=== PATIENT | female | born 1945 | race African-American/Black ===

== ENCOUNTER 2016-10-05 00:02 | Emergency (ER) | payer OTHER ==
--- NOTE | 2016-10-05 00:35 | PDOC ---
History of Present Illness - General Stated Complaint: PERSISTENT COUGH Time Seen by Provider: 10/05/16 00:35 - History of Present Illness Initial Comments: 10/05/16 02:37 Patient is a 70-year-old female with past medical history of seizure disorder, constipation, severe MR, glaucoma, dysphasia who presents to the emergency department today with a complaint of persistent cough. She is sent by her shelter for evaluation. Due to the patient's MR unable to obtain review of systems. According to her paperwork sent from the shelter patient with persistent cough for 2 weeks, no fevers or chills. Past History - Travel Traveled outside of the country in the last 30 days: No Close contact w/someone who was outside of country & ill: No - Past Medical History Allergies/Adverse Reactions: Allergies Allergy/AdvReac Type Severity Reaction Status Date / Time No Known Allergies Allergy Verified 02/14/13 21:49 Home Medications: Ambulatory Orders Carbamazepine [Tegretol] 400 mg PO DAILY 03/14/11 Docusate Sodium [Colace] 300 mg PO HS 03/14/11 Bimatoprost [Lumigan] 7.5 ml OP HS #0 drops 02/17/13 Calcium Carb/Magnesium Oxid/D3 [Calcium Magnesium + D Tablet] 1 each PO BID #0 tablet 02/17/13 Carbamazepine Xr [Tegretol XR -] 200 mg PO HS #0 tab.er.12h 02/17/13 Docusate Sodium [Colace -] 300 mg PO HS #60 capsule 02/17/13 Psyllium Husk (with Sugar) [Metamucil Packet] 1 each PO DAILY #0 packet Anemia: No Asthma: No Cancer: No Cardiac Disorders: No CVA: No COPD: No CHF: No Dementia: No Diabetes: No GI Disorders: No Disorders: No HTN: Yes Hypercholesterolemia: No Liver Disease: No Suicide Attempt (Hx): No Seizures: Yes Thyroid Disease: No - Psycho/Social/Smoking Cessation Hx Anxiety: No Suicidal Ideation: No Smoking Status: No Smoking History: Unknown if ever smoked Have you smoked in the past 12 months: No Number of Cigarettes Smoked Daily: 0 Hx Alcohol Use: No Drug/Substance Use Hx: No Substance Use Type: None Hx Substance Use Treatment: No Review of Systems - Review of Systems Able to Perform ROS?: No (severe mr) Comments:: 10/05/16 02:40 Unable to obtain d/t pt. severe MR. *Physical Exam - Physical Exam Comments: 10/05/16 06:41 GENERAL: Well developed, well nourished. Awake and alert, baseline. No acute distress, breathing easily. HEENT: Normocephalic, atraumatic. PERRLA, EOMI. No conjunctival pallor. Sclera are non- icteric. Moist mucous membranes. Oropharynx is clear. NECK: Supple. Full ROM. No JVD. Carotid pulses 2+ and symmetric, without bruits. No thyromegaly. No lymphadenopathy. CARDIOVASCULAR: Regular rate and rhythm. No murmurs, rubs, or gallops. Distal pulses are 2+ and symmetric. PULMONARY: No evidence of respiratory distress. Lungs clear to auscultation bilaterally. No wheezing, rales or rhonchi. ABDOMINAL: Soft. Non-tender. Non-distended. No rebound or guarding. No organomegaly. Normoactive bowel sounds. MUSCULOSKELETAL Normal range of motion at all joints. No bony deformities or tenderness. No CVA tenderness. EXTREMITIES: No cyanosis. No clubbing. No edema. No calf tenderness. SKIN: Warm and dry. Normal capillary refill. No rashes. No jaundice. NEUROLOGICAL: Alert, awake, appropriate. Cranial nerves 2-12 intact. No deficits to light touch and temperature in face, upper extremities and lower extremities. No motor deficits in the in face, upper extremities and lower extremities. Normoreflexic in the upper and lower extremities. Normal speech. Toes are down- going bilaterally. Gait is normal without ataxia. PSYCHIATRIC: Cooperative. Good eye contact. Appropriate mood and affect. ED Treatment Course - LABORATORY CBC & Chemistry Diagram: 10/05/16 02:27 10/05/16 02:27 Medical Decision Making - Medical Decision Making 10/05/16 02:41 Patient is a 70-year-old female with past medical history of seizure disorder, constipation, severe MR, glaucoma, dysphasia who presents to the emergency department today with a complaint of persistent cough. Patient appears stable in the emergency department, breathing easily. No cough heard at this time. We' ll order basic lab work and chest x-ray. Reevaluate. 10/05/16 03:58 CBC and CMP are within normal limits. Chest x-ray shows no evidence of infiltrate, possible increased interstitial markings. No acute cardiopulmonary changes. X-rays unchanged from previous x-ray in 2013. Patient appears stable at this time smiling making eye contacts. Has occasional dry cough. Most likely a postnasal drip. We'll discharge home at this time. Patient may use Mucinex as needed for the cough. Discharge instructions were outlined for the shelter. *DC/Admit/Observation/Transfer Diagnosis at time of Disposition: Cough - Discharge Dispostion Admit: No - Referrals Referrals: Nelly Tyson MD [Primary Care Provider] - - Patient Instructions Printed Discharge Instructions: DI for Cough -- Adult Additional Instructions: Ms. Diaz work up was negative today. She did not have a fever or a high WBC count on exam. Her chest x-ray does not show evidence of pneumonia. She may have Mucinex as needed for cough. Follow up with Dr. Tyson within the week. Return to the ED if she has fever, shortness of breath, worsening cough, or any changes in her symptoms.
[2016-10-05 01:38] VITALS: TEMP 98.1; BMI 26.4
[2016-10-05 02:39] LABS: BASOPHIL 0.3 % (0-2.0); EOSINOPHIL 6.3 % (0-4.5); MCH 25.5 pg (25.7-33.7); MCHC 31.7 g/dl (32.0-36.0); MEAN CELL VOLUME 80.5 fl (80-96); MEAN PLT VOLUME 9.9 fl (7.5-11.1); NEUTROPHILS 64.1 % (42.8-82.8); PLATELET COUNT 211 K/MM3 (134-434); WHITE BLOOD COUNT 9.5 K/mm3 (4.0-10.0)
[2016-10-05 03:13] LABS: ALBUMIN 3.4 g/dl (3.4-5.0); ALK PHOS 178 U/L (45-117); ANION GAP 9 (8-16); BILIRUBIN,TOTAL 0.2 mg/dL (0.2-1.0); CALCIUM 8.6 mg/dL (8.5-10.1); CO2 28 mmol/L (21-32); CREATININE 0.7 mg/dL (0.55-1.02); GLUCOSE,RANDOM 106 mg/dL (74-106); SGOT/AST 10 U/L (15-37); SGPT/ALT 20 U/L (12-78); TOT PROT 7.6 g/dl (6.4-8.2)
[2016-10-05 05:04] VITALS: BP 101/45; PULSE 65
== END 2016-10-05 05:02 ==
LOC: JER 00:02
DX: R05 Cough (principal); I10 Essential (primary) hypertension; G40.909 Epilepsy, unspecified, not intractable, without status epilepticus; K59.00 Constipation, unspecified; F72 Severe intellectual disabilities; R47.02 Dysphasia; H40.9 Unspecified glaucoma
CPT/HCPCS: 36415; 71010-TC; 80053; 85025; 99281-25

== ENCOUNTER 2017-07-26 00:18 | Observation (INO) | payer OTHER ==
--- NOTE | 2017-07-26 00:36 | PDOC ---
History of Present Illness - General Chief Complaint: Pain, Acute Stated Complaint: ABDOMINAL PAIN Time Seen by Provider: 07/26/17 00:35 History Source: [facility] - History of Present Illness Travel History: No Initial Comments: 07/26/17 01:54 71-year-old female with history of mental retardation, multiple comorbidities referred from [facility] for abdominal pain and several large bowel movements after administration of an enema. Patient is a phasic is unable to cooperate with detailed H&P. Information was provided by the skilled nursing records as well as paramedics transporting the patient to the ER. REVIEW OF SYSTEMS Unable to obtain EXAMINATION CONSTITUTIONAL: Awake and alert, nonverbal, in no apparent distress HEAD: Normocephalic; atraumatic EYES: Conjunctivae were pink ENMT: External appears normal; poor dentition NECK: Supple; non-tender; no cervical lymphadenopathy CARD: Normal S1, S2; no murmurs, rubs, or gallops RESP: Normal chest excursion with respiration; breath sounds clear and equal bilaterally; no wheezes, rhonchi, or rales ABD: Soft, distended; non-tender; + small ventral hernia is noted (easily reducible), no palpable organomegaly, bowel sounds are normal in all 4 quadrants [place]: Fecal impaction EXT: No obvious deformity SKIN: Warm, dry, no petechia NEURO: Patient is awake and alert, mumbles incoherently, does not follow commands Past History - Past Medical History Allergies/Adverse Reactions: Allergies Allergy/AdvReac Type Severity Reaction Status Date / Time No Known Allergies Allergy Verified 07/26/17 00:34 Home Medications: Ambulatory Orders Carbamazepine [Tegretol] 400 mg PO BID 03/14/11 Docusate Sodium [Colace] 300 mg PO HS 03/14/11 Aa/Hydrolyzed Collagen, Whey [Lps 15-30 Liquid] 30 ml PO BID 07/26/17 Acetaminophen [Tylenol] 650 mg PO QID PRN 07/26/17 Ascorbic Acid [Vitamin C -] 500 mg PO DAILY 07/26/17 Bisacodyl Suppository [Dulcolax Suppository -] 10 mg RC ASDIR 07/26/17 Calcium Carbonate/Vitamin D3 [Oyster Shell 500-Vit D3 200 Tb] 1 each PO BID Cholecalciferol (Vitamin D3) [Vitamin D3] 1,000 unit PO DAILY 07/26/17 Latanoprost 0.005% Eye Drops [Xalatan 0.005% Eye Drops -] 1 drop OU HS 07/26/17 Multivit-Min/Iron/Folic Acid/K [Multi-Day Plus Minerals Tablet] 1 each PO DAILY 07/26/17 Psyllium Husk/Aspartame [Metamucil] 3.4 gm PO DAILY 07/26/17 Sennosides [Senna] 2 tab PO DAILY 07/26/17 Zonisamide [Zonegran -] 100 mg PO HS 07/26/17 Anemia: No Asthma: No Cancer: No Cardiac Disorders: No CVA: No COPD: No CHF: No Dementia: No Diabetes: No GI Disorders: No Disorders: No HTN: Yes Hypercholesterolemia: No Liver Disease: No Seizures: Yes Thyroid Disease: No - Suicide/Smoking/Psychosocial Hx Smoking Status: No Smoking History: Unknown if ever smoked Have you smoked in the past 12 months: No Number of Cigarettes Smoked Daily: 0 Hx Alcohol Use: No Drug/Substance Use Hx: No Substance Use Type: None Hx Substance Use Treatment: No ED Treatment Course - LABORATORY CBC & Chemistry Diagram: 07/26/17 00:53 07/26/17 00:53 Medical Decision Making - Medical Decision Making 07/26/17 01:56 Patient is 71-year-old female with mental retardation, multiple comorbidities who presents to the ER with abdominal pain due to a severe fecal impaction and dilation of the rectum with rectal wall thickening. CT of abdomen and pelvis reveals no other intra-abdominal pathology. Patient will require admission for GI evaluation rectal tube placement for possible disimpaction. *DC/Admit/Observation/Transfer Diagnosis at time of Disposition: Fecal impaction Abdominal pain Qualifiers: Abdominal location: unspecified location Qualified Code(s): R10.9 - Unspecified abdominal pain - Discharge Dispostion Condition at time of disposition: Fair Decision to Admit order: Yes - Referrals Referrals: Aniket Guzman MD [Primary Care Provider] - - Patient Instructions - Post Discharge Activity
[2017-07-26 01:03] LABS: BASO % 0.3 % (0-2.0); EOS % 1.5 % (0-4.5); HEMATOCRIT 36.2 % (32.4-45.2); HEMOGLOBIN 11.5 GM/dL (10.7-15.3); LYMPH % 10.7 % (8-40); MCH 26.1 pg (25.7-33.7); MCHC 31.8 g/dl (32.0-36.0); MEAN CELL VOLUME 82.1 fl (80-96); MEAN PLT VOLUME 9.4 fl (7.5-11.1); MONO % 4.5 % (3.8-10.2); PLATELET COUNT 258 K/MM3 (134-434); RBC 4.42 M/mm3 (3.60-5.2); WHITE BLOOD COUNT 15.8 K/mm3 (4.0-10.0)
[2017-07-26 01:15] LABS: INR 1.15 (0.82-1.09)
[2017-07-26 01:29] LABS: ALBUMIN 3.6 g/dl (3.4-5.0); ALK PHOS 165 U/L (45-117); ANION GAP 10 (8-16); BILIRUBIN,TOTAL 0.2 mg/dL (0.2-1.0); BLOOD UREA NITROGEN 18 mg/dL (7-18); CALCIUM 8.6 mg/dL (8.5-10.1); CHLORIDE 107 mmol/L (98-107); CO2 25 mmol/L (21-32); CREATININE 1.1 mg/dL (0.55-1.02); GLUCOSE,RANDOM 139 mg/dL (74-106); POTASSIUM 4.5 mmol/L (3.5-5.1); SGOT/AST 12 U/L (15-37); SGPT/ALT 24 U/L (12-78); SODIUM 142 mmol/L (136-145); TOT PROT 8.1 g/dl (6.4-8.2)
[2017-07-26] MEDS ORDERED: DEXTROSE 5%-0.45% SALINE 1,000 ML IV SCH (02:00)
--- NOTE | 2017-07-26 02:23 | HP ---
CHIEF COMPLAINT: Abdominal Pain, Constipation PCP: Dr. Guzman HISTORY OF PRESENT ILLNESS: This is a 71 y/o woman from [facility] with a PMH: Mental Retardation, Constipation, Nephrotic Syndrome, Anemia, OA, Pneumonia, Influenza A, UTI. Who presents to the ED with constipation and abdominal pain. Patient has profound MR and is unable to provide HPI. Per ED records patient had abdominal pain and several large bowel movements after administration of an enema. ER course was notable for: (1) CTAP- Fecal Impaction (2) WBC 15.8 (3) Glucose 139 (4) Lactic Acid 2.2 Recent Travel: None PAST MEDICAL HISTORY: Mental Retardation Seizure Disorder Nephrotic Syndrome Constipation UTI Anemia Pneumonia Influenza A PAST SURGICAL HISTORY: Unable to Obtain Social History: Smoking: Never Alcohol: None Drugs: None Resides in SNF Family History: Unable to Obtain Allergies No Known Allergies Allergy (Verified 07/26/17 00:34) HOME MEDICATIONS: Home Medications Medication Instructions Recorded Carbamazepine [Tegretol] 400 mg PO BID 03/14/11 Docusate Sodium [Colace] 300 mg PO HS 03/14/11 Aa/Hydrolyzed Collagen, Whey [Lps 30 ml PO BID 07/26/17 15-30 Liquid] Acetaminophen [Tylenol] 650 mg PO QID PRN 07/26/17 Ascorbic Acid [Vitamin C -] 500 mg PO DAILY 07/26/17 Bisacodyl Suppository [Dulcolax 10 mg RC ASDIR 07/26/17 Suppository -] Calcium Carbonate/Vitamin D3 1 each PO BID 07/26/17 [Oyster Shell 500-Vit D3 200 Tb] Cholecalciferol (Vitamin D3) 1,000 unit PO DAILY 07/26/17 [Vitamin D3] Latanoprost 0.005% Eye Drops 1 drop OU HS 07/26/17 [Xalatan 0.005% Eye Drops -] Multivit-Min/Iron/Folic Acid/K 1 each PO DAILY 07/26/17 [Multi-Day Plus Minerals Tablet] Psyllium Husk/Aspartame [Metamucil] 3.4 gm PO DAILY 07/26/17 Sennosides [Senna] 2 tab PO DAILY 07/26/17 Zonisamide [Zonegran -] 100 mg PO HS 07/26/17 REVIEW OF SYSTEMS Mental Retardation- Unable to Obtain CONSTITUTIONAL: Absent: fever, chills, diaphoresis, generalized weakness, malaise, loss of appetite, weight change HEENT: Absent: rhinorrhea, nasal congestion, throat pain, throat swelling, difficulty swallowing, mouth swelling, ear pain, eye pain, visual changes CARDIOVASCULAR: Absent: chest pain, syncope, palpitations, irregular heart rate, lightheadedness , peripheral edema RESPIRATORY: Absent: cough, shortness of breath, dyspnea with exertion, orthopnea, wheezing, stridor, hemoptysis GASTROINTESTINAL: Absent: abdominal pain, abdominal distension, nausea, vomiting, diarrhea, constipation, melena, hematochezia GENITOURINARY: Absent: dysuria, frequency, urgency, hesitancy, hematuria, flank pain, genital pain MUSCULOSKELETAL: Absent: myalgia, arthralgia, joint swelling, back pain, neck pain SKIN: Absent: rash, itching, pallor HEMATOLOGIC/IMMUNOLOGIC: Absent: easy bleeding, easy bruising, lymphadenopathy, frequent infections ENDOCRINE: Absent: unexplained weight gain, unexplained weight loss, heat intolerance, cold intolerance NEUROLOGIC: Absent: headache, focal weakness or paresthesias, dizziness, unsteady gait, seizure, mental status changes, bladder or bowel incontinence PSYCHIATRIC: Absent: anxiety, depression, suicidal or homicidal ideation, hallucinations. PHYSICAL EXAMINATION Vital Signs - 24 hr 07/26/17 00:40 Temperature 98.9 F Pulse Rate 86 Respiratory 18 Rate Blood Pressure 148/95 O2 Sat by Pulse 100 Oximetry (%) GENERAL: Awake, alert- at baseline (profound MR), no acute distress HEAD: Normal with no signs of trauma. EYES: Pupils equal, round and reactive to light, sclera anicteric, conjunctiva clear. No lid lag. EARS, NOSE, THROAT: Ears normal, nares patent, oropharynx clear without exudates. Moist mucous membranes. NECK: Normal range of motion, supple without lymphadenopathy, JVD, or masses. LUNGS: Breath sounds equal, clear to auscultation bilaterally. No wheezes, and no crackles. No accessory muscle use. HEART: Regular rate and rhythm, normal S1 and S2 without murmur, rub or gallop. ABDOMEN: Firm, nontender, distended, hypoactive bowel sounds. No guarding, no rebound, no masses. No hepatomegaly or splenomegaly. MUSCULOSKELETAL: Normal range of motion at all joints. No bony deformities or tenderness. No CVA tenderness. UPPER EXTREMITIES: 2+ pulses, warm, well-perfused. No cyanosis. No clubbing. No peripheral edema. Contracted LOWER EXTREMITIES: 2+ pulses, warm, well-perfused. No calf tenderness. No peripheral edema. NEUROLOGICAL: Cranial nerves II-XII intact. Non-verbal. Gait not observed. PSYCHIATRIC: Profound MR- unable to assess. SKIN: Warm, dry, normal turgor, no rashes or lesions noted, normal capillary refill. Laboratory Results - last 24 hr 07/26/17 07/26/17 07/26/17 00:53 00:53 00:53 WBC 15.8 H D RBC 4.42 Hgb 11.5 Hct 36.2 MCV 82.1 MCH 26.1 MCHC 31.8 L RDW 14.0 Plt Count 258 D MPV 9.4 Neutrophils % 83.0 H D Lymphocytes % 10.7 D Monocytes % 4.5 Eosinophils % 1.5 Basophils % 0.3 PT with INR 13.00 INR 1.15 H Sodium 142 Potassium 4.5 Chloride 107 Carbon Dioxide 25 Anion Gap 10 BUN 18 Creatinine 1.1 H Creat Clearance w eGFR 48.82 Random Glucose 139 H Lactic Acid Calcium 8.6 Total Bilirubin 0.2 AST 12 L ALT 24 Alkaline Phosphatase 165 H Total Protein 8.1 Albumin 3.6 07/26/17 00:53 WBC RBC Hgb Hct MCV MCH MCHC RDW Plt Count MPV Neutrophils % Lymphocytes % Monocytes % Eosinophils % Basophils % PT with INR INR Sodium Potassium Chloride Carbon Dioxide Anion Gap BUN Creatinine Creat Clearance w eGFR Random Glucose Lactic Acid 2.2 H* Calcium Total Bilirubin AST ALT Alkaline Phosphatase Total Protein Albumin ASSESSMENT/PLAN: This is a 71 y/o woman with a PMHx of: Mental Retardation, Seizure Disorder, Nephrotic Syndrome, Constipation, Anemia OA, Pnuemonia, Influenza A. Admitted for Severe Fecal Impaction, Abdominal Pain. FEN - D51/2NS@60cc/hr - Replete lytes prn - NPO Code Status: DNR, HCP Dispo: Requires inpatient Care Problem List - Problem (1) Fecal impaction Assessment/Plan: - Pt given enema at [facility]- reports pt having large BM, with abdominal pain - CTAP- Severe Fecal impaction, Dilatation of Rectum with Rectal Wall Thickening - Appreciate GI consult - Continue IVF - NPO - Monitor CBC, BMP - Monitor vitals Code(s): K56.41 - FECAL IMPACTION (2) Abdominal pain Assessment/Plan: - See above Code(s): R10.9 - UNSPECIFIED ABDOMINAL PAIN Qualifiers: Abdominal location: unspecified location Qualified Code(s): R10.9 - Unspecified abdominal pain (3) Mental retardation Assessment/Plan: - Fall Risk - Seizure Precautions Code(s): F79 - UNSPECIFIED INTELLECTUAL DISABILITIES (4) DVT prophylaxis Assessment/Plan: - OOB - SCDs - Heparin SQ Code(s): [id number] - Visit type - Emergency Visit Emergency Visit: Yes ED Registration Date: 07/26/17 Care time: The patient presented to the Emergency Department on the above date and was hospitalized for further evaluation of their emergent condition. - New Patient This patient is new to me today: Yes Date on this admission: 07/26/17 - Critical Care Critical Care patient: No Hospitalist Screening - Colonoscopy Questionnaire Colonoscopy Questionnaire: Colonoscopy Questionnaire - Patient: 50 - 75 years old and never had a screening colonoscopy: Unknown History of colon or rectal polyps, or CA: Unknown History of IBD, Crohn's disease or UC: Unknown History of abdominal radiation therapy as a child: Unknown - Relative: 1 with colon or rectal CA, or polyps at age 60 or younger: Unknown Colon or rectal CA diagnosed at age 45 or younger: Unknown Multiple relatives with colon or rectal CA: Unknown - Outcome: Screening Result: Negative Screen
[2017-07-26 03:20] LABS: URINE APPEARANCE CLEAR; URINE BILIRUBIN NEGATIVE (<2.0 mg/dL); URINE COLOR AMBER; URINE GLUCOSE (UA) NEGATIVE (NEGATIVE); URINE KETONE TRACE (NEGATIVE); URINE LEUK ESTERASE NEGATIVE (NEGATIVE); URINE NITRITE NEGATIVE (NEGATIVE); URINE PROTEIN NEGATIVE (NEGATIVE)
[2017-07-26 07:50] VITALS: BMI 22.7
[2017-07-26 07:58] LABS: CHLORIDE 106 mmol/L (98-107); SODIUM 141 mmol/L (136-145)
[2017-07-26 08:11] LABS: ANION GAP 10 (8-16); BLOOD UREA NITROGEN 17 mg/dL (7-18); CALCIUM 8.5 mg/dL (8.5-10.1); CO2 25 mmol/L (21-32); CREATININE 0.8 mg/dL (0.55-1.02); GLUCOSE,RANDOM 133 mg/dL (74-106)
[2017-07-26] MEDS ORDERED: PT OWN MED DRAWER 7, Y5N ONE ×3 (09:40→21:39)
[2017-07-26] MEDS: carBAMazepine 200 MG TABLET PO SCH ×2 (09:42→21:52)
[2017-07-26] MEDS: HEPARIN NA (PORCINE) 5,000 UNITS/ML 1ML VIAL SQ SCH ×2 (09:42→21:52)
[2017-07-26] MEDS ORDERED: POLYETHYLENE GLYCOL 3350 119 GM BTL PO SCH (10:00)
--- NOTE | 2017-07-26 10:22 | PN ---
Progress Note, Physician Chief Complaint: unable to obtain, pt aphasic. appears comfortable. slightly anxious. appears in no acute distress. - Current Medication List Current Medications: Active Medications Carbamazepine (Tegretol -) 400 mg PO BID [facility] Last Admin: 07/26/17 09:42 Dose: 400 mg Docusate Sodium (Colace -) 100 mg PO TID BRIAN Heparin Sodium (Porcine) (Heparin -) 5,000 unit SQ BID [facility] Last Admin: 07/26/17 09:42 Dose: 5,000 unit Dextrose/Sodium Chloride (D5-1/2ns -) 1,000 mls @ 60 mls/hr IV ASDIR BRIAN Latanoprost (Xalatan 0.005% Eye Drops -) 1 drop OU HS BRIAN Polyethylene Glycol (Miralax (For Daily Use) -) 17 gm PO BID BRIAN Senna (Senna -) 2 tab PO HS BRIAN Zonisamide (Zonegran -) 100 mg PO HS BRIAN - Objective Vital Signs: Vital Signs Temperature 98.8 F 07/26/17 02:26 Pulse Rate 84 07/26/17 02:26 Respiratory Rate 18 07/26/17 02:26 Blood Pressure 100/50 07/26/17 02:26 O2 Sat by Pulse Oximetry (%) 98 07/26/17 02:25 Constitutional: Yes: No Distress, Anxious Cardiovascular: Yes: Regular Rate and Rhythm Respiratory: Yes: WNL, Regular, CTA Bilaterally. No: Accessory Muscle Use, SOB , Wheezes Gastrointestinal: Yes: Soft, Abdomen, Obese, Hypoactive Bowel Sounds. No: Tenderness, Vomiting Genitourinary: Yes: Incontinence Extremities: Yes: Deformity (contracted) Edema: No Neurological: Yes: Aphasia Psychiatric: Yes: Alert Labs: CBC, BMP 07/26/17 00:53 07/26/17 06:15 INR, PTT INR 1.15 (0.82-1.09) H 07/26/17 00:53 Problem List - Problems (1) Fecal impaction Assessment/Plan: CT-abd w/ impaction colon having bms, abd soft, +bs fleet enema x 1 colace tid senna hs abd kub scan tomorrow am to assess impaction pureed diet ordered, monitor case discussed with GI Code(s): K56.41 - FECAL IMPACTION (2) Leukocytosis Assessment/Plan: possibly secondary to dehydration improved w/ ivf infectious etiology unlikely will monitor Code(s): D72.829 - ELEVATED WHITE BLOOD CELL COUNT, UNSPECIFIED (3) PABLO (acute kidney injury) Assessment/Plan: secondary to dehydration improved ivf monitor bmp Code(s): N17.9 - ACUTE KIDNEY FAILURE, UNSPECIFIED (4) Mental retardation Assessment/Plan: profound, aphasic puree diet dysphagia/fall precautions Code(s): F79 - UNSPECIFIED INTELLECTUAL DISABILITIES Assessment/Plan Dispo: Home once GI cleared
[2017-07-26 11:36] LABS: BASO % 0.5 % (0-2.0); EOS % 1.8 % (0-4.5); HEMATOCRIT 34.2 % (32.4-45.2); HEMOGLOBIN 10.8 GM/dL (10.7-15.3); MCH 25.9 pg (25.7-33.7); MCHC 31.5 g/dl (32.0-36.0); MEAN CELL VOLUME 82.3 fl (80-96); MEAN PLT VOLUME 9.8 fl (7.5-11.1); MONO % 6.6 % (3.8-10.2); NEUT % 76.1 % (42.8-82.8); PLATELET COUNT 229 K/MM3 (134-434); RBC 4.16 M/mm3 (3.60-5.2); RDW 14.2 % (11.6-15.6)
--- NOTE | 2017-07-26 11:57 | EKG ---
Test Reason : Blood Pressure : / mmHG Vent. Rate : 080 BPM Atrial Rate : 080 BPM P-R Int : 168 ms QRS Dur : 068 ms QT Int : 370 ms P-R-T Axes : 059 013 048 degrees QTc Int : 426 ms NORMAL SINUS RHYTHM MODERATE VOLTAGE CRITERIA FOR LVH, MAY BE NORMAL VARIANT NONSPECIFIC ST ABNORMALITY ABNORMAL ECG NO PREVIOUS ECGS AVAILABLE Confirmed by TOM LUBIN MD ([id number]) on 07/26/2017 11:57:06 AM Referred By: Confirmed By:TOM LUBIN MD
--- NOTE | 2017-07-26 12:49 | CON.GI ---
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) - Alcohol/Substance Use Hx Alcohol Use: No - Smoking History Smoking history: Unknown if ever smoked Have you smoked in the past 12 months: No Aproximately how many cigarettes per day: 0 Home Medications - Allergies Allergies/Adverse Reactions: Allergies Allergy/AdvReac Type Severity Reaction Status Date / Time No Known Allergies Allergy Verified 07/26/17 00:34 - Home Medications Home Medications: Ambulatory Orders Carbamazepine [Tegretol] 400 mg PO BID 03/14/11 Docusate Sodium [Colace] 300 mg PO HS 03/14/11 Aa/Hydrolyzed Collagen, Whey [Lps 15-30 Liquid] 30 ml PO BID 07/26/17 Acetaminophen [Tylenol] 650 mg PO QID PRN 07/26/17 Ascorbic Acid [Vitamin C -] 500 mg PO DAILY 07/26/17 Bisacodyl Suppository [Dulcolax Suppository -] 10 mg RC ASDIR 07/26/17 Calcium Carbonate/Vitamin D3 [Oyster Shell 500-Vit D3 200 Tb] 1 each PO BID Cholecalciferol (Vitamin D3) [Vitamin D3] 1,000 unit PO DAILY 07/26/17 Latanoprost 0.005% Eye Drops [Xalatan 0.005% Eye Drops -] 1 drop OU HS 07/26/17 Multivit-Min/Iron/Folic Acid/K [Multi-Day Plus Minerals Tablet] 1 each PO DAILY 07/26/17 Psyllium Husk/Aspartame [Metamucil] 3.4 gm PO DAILY 07/26/17 Sennosides [Senna] 2 tab PO DAILY 07/26/17 Zonisamide [Zonegran -] 100 mg PO HS 07/26/17 Family Disease History - Family Disease History Family History: Unable to Obtain Review of Systems Unable to obtain ROS, reason: severe mental retardatio Findings/Remarks: as per chart and H&P Physical Exam-GI Vital Signs: Vital Signs Temperature 99.2 F 07/26/17 08:15 Pulse Rate 76 07/26/17 10:25 Respiratory Rate 18 07/26/17 08:15 Blood Pressure 130/74 07/26/17 10:25 O2 Sat by Pulse Oximetry (%) 98 07/26/17 02:25 Constitutional: Yes: Calm Eyes: No: Sclera Icterus HENT: Yes: Drooling Cardiovascular: No: Bradycardia, Tachycardia Respiratory: Yes: Regular Gastrointestinal Inspection: No: Ascites, Distention ...Auscultate: Yes: Normoactive Bowel Sounds ...Palpate: Yes: Soft. No: Firm/Rigid, Guarding, Mass, Tenderness, Tenderness, Rebound ...Rectal Exam: Yes: Other ( large amount of brown, soft stool in diaper) Neurological: Yes: Alert Labs: CBC, BMP 07/26/17 11:20 07/26/17 06:15 INR, PTT INR 1.15 (0.82-1.09) H 07/26/17 00:53 Laboratory Last Values WBC 11.0 K/mm3 (4.0-10.0) H D 07/26/17 11:20 RBC 4.16 M/mm3 (3.60-5.2) 07/26/17 11:20 Hgb 10.8 GM/dL (10.7-15.3) 07/26/17 11:20 Hct 34.2 % (32.4-45.2) 07/26/17 11:20 MCV 82.3 fl (80-96) 07/26/17 11:20 MCH 25.9 pg (25.7-33.7) 07/26/17 11:20 MCHC 31.5 g/dl (32.0-36.0) L 07/26/17 11:20 RDW 14.2 % (11.6-15.6) 07/26/17 11:20 Plt Count 229 K/MM3 (134-434) 07/26/17 11:20 MPV 9.8 fl (7.5-11.1) 07/26/17 11:20 Neutrophils % 76.1 % (42.8-82.8) 07/26/17 11:20 Lymphocytes % 15.0 % (8-40) D 07/26/17 11:20 Monocytes % 6.6 % (3.8-10.2) 07/26/17 11:20 Eosinophils % 1.8 % (0-4.5) 07/26/17 11:20 Basophils % 0.5 % (0-2.0) 07/26/17 11:20 PT with INR 13.00 SEC (9.7-13.0) 07/26/17 00:53 INR 1.15 (0.82-1.09) H 07/26/17 00:53 Sodium 141 mmol/L (136-145) 07/26/17 06:15 Potassium 4.0 mmol/L (3.5-5.1) 07/26/17 06:15 Chloride 106 mmol/L (98-107) 07/26/17 06:15 Carbon Dioxide 25 mmol/L (21-32) 07/26/17 06:15 Anion Gap 10 (8-16) 07/26/17 06:15 BUN 17 mg/dL (7-18) 07/26/17 06:15 Creatinine 0.8 mg/dL (0.55-1.02) 07/26/17 06:15 Creat Clearance w eGFR 48.82 (>60) 07/26/17 00:53 Random Glucose 133 mg/dL (74-106) H 07/26/17 06:15 Lactic Acid 2.1 mmol/L (0.0-2.0) H 07/26/17 11:20 Calcium 8.5 mg/dL (8.5-10.1) 07/26/17 06:15 Total Bilirubin 0.2 mg/dL (0.2-1.0) 07/26/17 00:53 AST 12 U/L (15-37) L 07/26/17 00:53 ALT 24 U/L (12-78) 07/26/17 00:53 Alkaline Phosphatase 165 U/L (45-117) H 07/26/17 00:53 Total Protein 8.1 g/dl (6.4-8.2) 07/26/17 00:53 Albumin 3.6 g/dl (3.4-5.0) 07/26/17 00:53 Urine Color Dayanna 07/26/17 03:00 Urine Appearance Clear 07/26/17 03:00 Urine pH 6.0 (5.0-8.0) 07/26/17 03:00 Ur Specific [place] 1.023 (1.001-1.035) 07/26/17 03:00 Urine Protein Negative (NEGATIVE) 07/26/17 03:00 Urine Glucose (UA) Negative (NEGATIVE) 07/26/17 03:00 Urine Ketones Trace (NEGATIVE) H 07/26/17 03:00 Urine Blood Negative (NEGATIVE) 07/26/17 03:00 Urine Nitrite Negative (NEGATIVE) 07/26/17 03:00 Urine Bilirubin Negative (<2.0 mg/dL) 07/26/17 03:00 Urine Urobilinogen 2.0 mg/dL (0.2-1.0) H 07/26/17 03:00 Ur Leukocyte Esterase Negative (NEGATIVE) 07/26/17 03:00 Imaging - Results Cat Scan: Report Reviewed ( rectosigmoid stool impaction) Problem List - Problems (1) Abdominal pain Code(s): R10.9 - UNSPECIFIED ABDOMINAL PAIN Qualifiers: Abdominal location: unspecified location Qualified Code(s): R10.9 - Unspecified abdominal pain (2) Fecal impaction Code(s): K56.41 - FECAL IMPACTION (3) Leukocytosis Code(s): D72.829 - ELEVATED WHITE BLOOD CELL COUNT, UNSPECIFIED (4) Mental retardation Code(s): F79 - UNSPECIFIED INTELLECTUAL DISABILITIES Assessment/Plan a 71-year-old female with severe mental retardation admitted with abdominal pain and CAT scan evidence of rectosigmoid stool impaction. While in the ED she had large bowel movements. At the time of this encounter, the patient has large amount of soft stool in diaper. She has benign abdomen on exam. She does not appear to be in distress, or discomfort. Continue current management. MiraLAX 3 times a day to start with and titrate to one bowel movement per day. Resume previous diet. Observe. Will follow
[2017-07-26] MEDS: DOCUSATE SODIUM 100 MG CAPSULE (FP) PO SCH ×2 (13:28→21:52)
[2017-07-26] MEDS: DEXTROSE 5%-0.45% SALINE 1,000 ML IV SCH (21:50)
[2017-07-26] MEDS ORDERED: LATANOPROST 0.005% OPHTH SOLN 2.5ML BOTTLE OU SCH (22:00)
[2017-07-26] MEDS ORDERED: SENNOSIDES 8.6MG TABLET (FP) PO SCH (22:00)
[2017-07-26] MEDS ORDERED: ZONISAMIDE 100 MG CAPSULE PO SCH (22:00)
[2017-07-27] MEDS: DEXTROSE 5%-0.45% SALINE 1,000 ML IV SCH (06:03)
[2017-07-27] MEDS: DOCUSATE SODIUM 100 MG CAPSULE (FP) PO SCH ×2 (06:03→14:50)
[2017-07-27 08:05] LABS: BASO % 0.4 % (0-2.0); EOS % 4.4 % (0-4.5); HEMATOCRIT 30.8 % (32.4-45.2); LYMPH % 29.4 % (8-40); MCH 27.1 pg (25.7-33.7); MCHC 32.5 g/dl (32.0-36.0); MEAN CELL VOLUME 83.5 fl (80-96); MEAN PLT VOLUME 10.1 fl (7.5-11.1); MONO % 6.7 % (3.8-10.2); NEUT % 59.1 % (42.8-82.8); PLATELET COUNT 190 K/MM3 (134-434); RBC 3.69 M/mm3 (3.60-5.2); RDW 14.3 % (11.6-15.6)
[2017-07-27 08:46] LABS: ALBUMIN 2.9 g/dl (3.4-5.0); ANION GAP 8 (8-16); BLOOD UREA NITROGEN 10 mg/dL (7-18); CALCIUM 7.9 mg/dL (8.5-10.1); CHLORIDE 107 mmol/L (98-107); CO2 26 mmol/L (21-32); GLUCOSE,RANDOM 118 mg/dL (74-106); MAGNESIUM 2.3 mg/dL (1.8-2.4); POTASSIUM 3.4 mmol/L (3.5-5.1); SODIUM 141 mmol/L (136-145)
[2017-07-27 08:52] LABS: ALK PHOS 125 U/L (45-117); BILIRUBIN,TOTAL 0.3 mg/dL (0.2-1.0); CREATININE 0.6 mg/dL (0.55-1.02); PHOSPHOROUS 2.9 mg/dL (2.5-4.9); SGOT/AST 14 U/L (15-37); SGPT/ALT 17 U/L (12-78); TOT PROT 6.9 g/dl (6.4-8.2)
[2017-07-27] MEDS ORDERED: PT OWN MED DRAWER 7, Y5N ONE (12:25)
[2017-07-27] MEDS: carBAMazepine 200 MG TABLET PO SCH (12:26)
[2017-07-27] MEDS: HEPARIN NA (PORCINE) 5,000 UNITS/ML 1ML VIAL SQ SCH (12:26)
[2017-07-27] MEDS ORDERED: POTASSIUM CHLORIDE ORAL LIQUID 20 MEQ/15 ML PO ONE (12:30)
--- NOTE | 2017-07-27 13:22 | PN ---
Progress Note, Physician History of Present Illness: Clinically the same. Not in distress, or discomfort. Multiple bowel movements reported. - Current Medication List Current Medications: Active Medications Carbamazepine (Tegretol -) 400 mg PO BID [facility] Last Admin: 07/27/17 12:26 Dose: 400 mg Docusate Sodium (Colace -) 100 mg PO TID [facility] Last Admin: 07/27/17 06:03 Dose: 100 mg Heparin Sodium (Porcine) (Heparin -) 5,000 unit SQ BID [facility] Last Admin: 07/27/17 12:26 Dose: 5,000 unit Dextrose/Sodium Chloride (D5-1/2ns -) 1,000 mls @ 60 mls/hr IV ASDIR [facility] Last Admin: 07/27/17 06:03 Dose: Not Given Latanoprost (Xalatan 0.005% Eye Drops -) 1 drop OU HS [facility] Last Admin: 07/26/17 21:52 Dose: 1 drop Senna (Senna -) 2 tab PO HS [facility] Last Admin: 07/26/17 21:51 Dose: 2 tab Zonisamide (Zonegran -) 100 mg PO HS [facility] Last Admin: 07/26/17 21:52 Dose: 100 mg - Objective Vital Signs: Vital Signs Temperature 98.2 F 07/27/17 10:00 Pulse Rate 74 07/27/17 10:00 Respiratory Rate 18 07/27/17 10:00 Blood Pressure 130/75 07/27/17 10:00 O2 Sat by Pulse Oximetry (%) 100 07/26/17 21:00 Gastrointestinal: Yes: Soft. No: Distention, Melena, Rectal Bleeding, Tenderness, Vomiting Labs: CBC, BMP 07/27/17 06:30 07/27/17 06:30 INR, PTT INR 1.15 (0.82-1.09) H 07/26/17 00:53 Laboratory Last Values WBC 8.0 K/mm3 (4.0-10.0) 07/27/17 06:30 RBC 3.69 M/mm3 (3.60-5.2) 07/27/17 06:30 Hgb 10.0 GM/dL (10.7-15.3) L 07/27/17 06:30 Hct 30.8 % (32.4-45.2) L 07/27/17 06:30 MCV 83.5 fl (80-96) 07/27/17 06:30 MCH 27.1 pg (25.7-33.7) 07/27/17 06:30 MCHC 32.5 g/dl (32.0-36.0) 07/27/17 06:30 RDW 14.3 % (11.6-15.6) 07/27/17 06:30 Plt Count 190 K/MM3 (134-434) 07/27/17 06:30 MPV 10.1 fl (7.5-11.1) 07/27/17 06:30 Neutrophils % 59.1 % (42.8-82.8) D 07/27/17 06:30 Lymphocytes % 29.4 % (8-40) D 07/27/17 06:30 Monocytes % 6.7 % (3.8-10.2) 07/27/17 06:30 Eosinophils % 4.4 % (0-4.5) D 07/27/17 06:30 Basophils % 0.4 % (0-2.0) 07/27/17 06:30 PT with INR 13.00 SEC (9.7-13.0) 07/26/17 00:53 INR 1.15 (0.82-1.09) H 07/26/17 00:53 Sodium 141 mmol/L (136-145) 07/27/17 06:30 Potassium 3.4 mmol/L (3.5-5.1) L 07/27/17 06:30 Chloride 107 mmol/L (98-107) 07/27/17 06:30 Carbon Dioxide 26 mmol/L (21-32) 07/27/17 06:30 Anion Gap 8 (8-16) 07/27/17 06:30 BUN 10 mg/dL (7-18) 07/27/17 06:30 Creatinine 0.6 mg/dL (0.55-1.02) 07/27/17 06:30 Creat Clearance w eGFR > 60 (>60) 07/27/17 06:30 Random Glucose 118 mg/dL (74-106) H 07/27/17 06:30 Lactic Acid 1.1 mmol/L (0.0-2.0) 07/27/17 06:30 Calcium 7.9 mg/dL (8.5-10.1) L 07/27/17 06:30 Phosphorus 2.9 mg/dL (2.5-4.9) 07/27/17 06:30 Magnesium 2.3 mg/dL (1.8-2.4) 07/27/17 06:30 Total Bilirubin 0.3 mg/dL (0.2-1.0) D 07/27/17 06:30 AST 14 U/L (15-37) L 07/27/17 06:30 ALT 17 U/L (12-78) 07/27/17 06:30 Alkaline Phosphatase 125 U/L (45-117) H 07/27/17 06:30 Total Protein 6.9 g/dl (6.4-8.2) 07/27/17 06:30 Albumin 2.9 g/dl (3.4-5.0) L 07/27/17 06:30 Urine Color Dayanna 07/26/17 03:00 Urine Appearance Clear 07/26/17 03:00 Urine pH 6.0 (5.0-8.0) 07/26/17 03:00 Ur Specific [place] 1.023 (1.001-1.035) 07/26/17 03:00 Urine Protein Negative (NEGATIVE) 07/26/17 03:00 Urine Glucose (UA) Negative (NEGATIVE) 07/26/17 03:00 Urine Ketones Trace (NEGATIVE) H 07/26/17 03:00 Urine Blood Negative (NEGATIVE) 07/26/17 03:00 Urine Nitrite Negative (NEGATIVE) 07/26/17 03:00 Urine Bilirubin Negative (<2.0 mg/dL) 07/26/17 03:00 Urine Urobilinogen 2.0 mg/dL (0.2-1.0) H 07/26/17 03:00 Ur Leukocyte Esterase Negative (NEGATIVE) 07/26/17 03:00 Problem List - Problems (1) Abdominal pain Code(s): R10.9 - UNSPECIFIED ABDOMINAL PAIN Qualifiers: Abdominal location: unspecified location Qualified Code(s): R10.9 - Unspecified abdominal pain (2) Fecal impaction Code(s): K56.41 - FECAL IMPACTION (3) Leukocytosis Code(s): D72.829 - ELEVATED WHITE BLOOD CELL COUNT, UNSPECIFIED (4) Mental retardation Code(s): F79 - UNSPECIFIED INTELLECTUAL DISABILITIES Assessment/Plan Continue current management. MiraLAX 3 times a day to start with and titrate to one bowel movement per day. Please reconsult GI as needed.
[2017-07-27 14:44] VITALS: BP 119/67; PULSE 71; TEMP 99.6
--- NOTE | 2017-07-27 15:19 | DS ---
Physical Examination Vital Signs: Vital Signs Temperature 37.6 C 07/27/17 14:43 Pulse Rate 71 07/27/17 14:43 Respiratory Rate 18 07/27/17 14:43 Blood Pressure 119/67 07/27/17 14:43 O2 Sat by Pulse Oximetry (%) 100 07/26/17 21:00 Constitutional: Yes: Well Nourished, No Distress, Calm Cardiovascular: Yes: Regular Rate and Rhythm. No: Gallop, Murmur, Rub Respiratory: Yes: Regular, CTA Bilaterally. No: Rales, Rhonchi, Wheezes Gastrointestinal: Yes: Normal Bowel Sounds, Soft. No: Distention, Tenderness Extremities: Yes: WNL Edema: No Labs: CBC, BMP 07/27/17 06:30 07/27/17 06:30 Discharge Summary Reason For Visit: ABDOMINAL PAIN FECAL IMPACTION Current Active Problems PABLO (acute kidney injury) (Acute) Abdominal pain (Acute) DVT prophylaxis (Acute) Fecal impaction (Acute) Fecal impaction (Acute) Leukocytosis (Acute) Mental retardation (Acute) Hospital Course: (1) Fecal impaction Code(s): K56.41 - FECAL IMPACTION (2) Leukocytosis Code(s): D72.829 - ELEVATED WHITE BLOOD CELL COUNT, UNSPECIFIED (3) PABLO (acute kidney injury) Code(s): N17.9 - ACUTE KIDNEY FAILURE, UNSPECIFIED (4) Mental retardation Code(s): F79 - UNSPECIFIED INTELLECTUAL DISABILITIES Ms Fernandes is a 71 year old female with developmental delay coming in from the SNF with fecal impaction. She was admitted under observation and seen by GI. She was given enemas and laxatives and had multiple very large bowel movements here. Her abdominal exam is currently benign and she is eating without difficulty. She should continue on a regimen of stool softeners and cathartics in the SNF. She is currently safe for discharge. GI saw and also cleared. 31 minutes spent in preparation of this discharge Condition: Stable - Instructions Diet, Activity, Other Instructions: resume previous diet and activity Referrals: Aniket Guzman MD [Primary Care Provider] - Disposition: [facility] FACILITY - Home Medications Comprehensive Discharge Medication List: Ambulatory Orders Carbamazepine [Tegretol] 400 mg PO BID 03/14/11 Docusate Sodium [Colace] 300 mg PO HS 03/14/11 Aa/Hydrolyzed Collagen, Whey [Lps 15-30 Liquid] 30 ml PO BID 07/26/17 Acetaminophen [Tylenol] 650 mg PO QID PRN 07/26/17 Ascorbic Acid [Vitamin C -] 500 mg PO DAILY 07/26/17 Bisacodyl Suppository [Dulcolax Suppository -] 10 mg RC ASDIR 07/26/17 Calcium Carbonate/Vitamin D3 [Oyster Shell 500-Vit D3 200 Tb] 1 each PO BID Cholecalciferol (Vitamin D3) [Vitamin D3] 1,000 unit PO DAILY 07/26/17 Latanoprost 0.005% Eye Drops [Xalatan 0.005% Eye Drops -] 1 drop OU HS 07/26/17 Multivit-Min/Iron/Folic Acid/K [Multi-Day Plus Minerals Tablet] 1 each PO DAILY 07/26/17 Psyllium Husk/Aspartame [Metamucil Powder] 3.4 gm PO DAILY 07/26/17 Sennosides [Senna -] 2 tab PO DAILY 07/26/17 Zonisamide [Zonegran -] 100 mg PO HS 07/26/17
== END 2017-07-27 18:05 ==
LOC: JER 00:18 → INTOOBSV 01:58 → JERBED 01:58 → UNDOADMOB 01:58 → JERBED 02:25 → UNDOADMIN 02:25 → J8W 03:47 → JERBED 03:47 → J8W 07-27 12:10
PROVIDERS: ADMIT Internal Medicine; ATTEND Internal Medicine
PROC: 3E0337Z Introduction of Electrolytic and Water Balance Substance into Peripheral Vein, Percutaneous Approach (ICD-10-PCS; principal; 2017-07-27)
PROC: 3E013GC Introduction of Other Therapeutic Substance into Subcutaneous Tissue, Percutaneous Approach (ICD-10-PCS; 2017-07-27)
DX: K56.41 Fecal impaction (principal); R10.9 Unspecified abdominal pain; D72.829 Elevated white blood cell count, unspecified; N17.9 Acute kidney failure, unspecified; I10 Essential (primary) hypertension; N04.9 Nephrotic syndrome with unspecified morphologic changes; D64.9 Anemia, unspecified; M19.90 Unspecified osteoarthritis, unspecified site; G40.909 Epilepsy, unspecified, not intractable, without status epilepticus; F79 Unspecified intellectual disabilities
CPT/HCPCS: 36415; 71045-TC-FY; 74018-TC-FY; 74176-TC; 80048; 80053; 81003; 83605; 83735; 84100; 85025; 85610; 87040; 87086; 93005; 93010; 96372; 97161-GP; 99283-25; G0378; J1644

== ENCOUNTER 2019-01-28 17:40 | Inpatient (IN) | payer OTHER ==
--- NOTE | 2019-01-28 19:43 | PDOC ---
Attending Attestation - Resident Resident Name: Lisandra Angel - ED Attending Attestation I have performed the following: I have examined & evaluated the patient, The case was reviewed & discussed with the resident, I agree w/resident's findings & plan - HPI HPI: 01/28/19 21:47 see resident hpi - Physicial Exam PE: 01/28/19 21:47 agree with resident exam - Medical Decision Making 01/28/19 21:49 73-year-old female with mental retardation and possible seizure activity with known history of epilepsy Patient is awake and alert, unable to provide history due to cognitive deficits Plan for CT scan of the head due to patient's age and change in seizure type Anticonvulsant levels pending Will plan for DC back to facility pending scan and lab results Possible observation due to sedation for procedures
--- NOTE | 2019-01-28 20:19 | PDOC ---
History of Present Illness - General Chief Complaint: Tremors Stated Complaint: SICK Time Seen by Provider: 01/28/19 19:06 History Source: [facility] Records Exam Limitations: Physical Impairment (severe MR, generally non-verbal) - History of Present Illness Initial Comments: Pt is a 73 yo F, with PMH of severe MR, seizure ds, chronic constipation and dysphagia, who presents via EMS from [facility] for "intermittent tremors of the head and b/l LEs with increased lethargy after shaking, evaluate for breakthrough seizures". Pt takes keppra (1000 mg BID) and carbamazepine (200 mg BID); it is unclear how often the pt has seizures, as she has not been to our institution in some time. Pt is limited verbal due to MR and cannot provide additional ROS. Allergies: NKDA PCP: Megan Social: No cigarette, alcohol, or drug use. No recent travel or sick contacts. Surgical: no relevant history. 01/28/19 20:27 Past History - Travel Traveled outside of the country in the last 30 days: No Close contact w/someone who was outside of country & ill: No - Past Medical History Allergies/Adverse Reactions: Allergies Allergy/AdvReac Type Severity Reaction Status Date / Time No Known Allergies Allergy Verified 07/26/17 00:34 Home Medications: Ambulatory Orders Carbamazepine [Tegretol] 400 mg PO BID 03/14/11 Docusate Sodium [Colace] 300 mg PO HS 03/14/11 Aa/Hydrolyzed Collagen, Whey [Lps 15-30 Liquid] 30 ml PO BID 07/26/17 Acetaminophen [Tylenol] 650 mg PO QID PRN 07/26/17 Ascorbic Acid [Vitamin C -] 500 mg PO DAILY 07/26/17 Bisacodyl Suppository [Dulcolax Suppository -] 10 mg RC ASDIR 07/26/17 Calcium Carbonate/Vitamin D3 [Oyster Shell 500-Vit D3 200 Tb] 1 each PO BID Cholecalciferol (Vitamin D3) [Vitamin D3] 1,000 unit PO DAILY 07/26/17 Latanoprost 0.005% Eye Drops [Xalatan 0.005% Eye Drops -] 1 drop OU HS 07/26/17 Multivit-Min/Iron/Folic Acid/K [Multi-Day Plus Minerals Tablet] 1 each PO DAILY 07/26/17 Psyllium Husk/Aspartame [Metamucil Powder] 3.4 gm PO DAILY 07/26/17 Sennosides [Senna -] 2 tab PO DAILY 07/26/17 Zonisamide [Zonegran -] 100 mg PO HS 07/26/17 Anemia: No Asthma: No Cancer: No Cardiac Disorders: No CVA: No COPD: No CHF: No Dementia: No Diabetes: No GI Disorders: No Disorders: No HTN: Yes Hypercholesterolemia: No Liver Disease: No Seizures: Yes Thyroid Disease: No - Psycho Social/Smoking Cessation Hx Smoking Status: No Smoking History: Smoker current status UNK Have you smoked in the past 12 months: No Number of Cigarettes Smoked Daily: 0 Hx Alcohol Use: No Drug/Substance Use Hx: No Substance Use Type: None Hx Substance Use Treatment: No Review of Systems - Review of Systems Able to Perform ROS?: No (see HPI) Is the patient limited Turkmen proficient: Yes *Physical Exam - Vital Signs Last Vital Signs Temp Pulse Resp BP Pulse Ox 98.0 F 63 16 150/101 H 94 L 01/28/19 18:06 01/28/19 18:06 01/28/19 18:06 01/28/19 18:06 01/28/19 18:06 - Physical Exam Comments: Vitals stable, pt afebrile. Pt in NAD, lying on bed comfortably. Normal body habitus. Pt alert with spontaneous eye opening. Mumbling incoherently (pt baseline). Unable to assess orientation due to limitations. 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 No midline spinal tenderness, step-offs, or crepitus. Head normocephalic, atraumatic. Eyes PERRLA, EOMI. Oropharynx without erythema or exudates, no LAD b/l. +extremely poor dentition. No nasal congestion. Hearing intact. Clear heart sounds, S1/S2, no JVD, b/l pedal edema, or heart murmur. Clear lung sounds, no respiratory distress, wheezes, crackles, or accessory muscle use. No abdominal or CVA tenderness to palpation, no rebound, no guarding. Abdomen soft, protuberant but non-distended, and with normoactive bowel sounds. Skin without jaundice or rash. No pressure ulcers noted. 01/28/19 20:18 01/28/19 20:31 ED Treatment Course - LABORATORY CBC & Chemistry Diagram: 01/28/19 21:13 01/28/19 21:13 - ADDITIONAL ORDERS Additional order review: Laboratory Results 01/28/19 20:09 POC Glucometer 80 01/28/19 20:09 POC Glucometer 80 - RADIOLOGY Radiology Studies Ordered: Category Date Time Status HEAD CT WITHOUT CONTRAST [CT] Stat CT Scan 01/28/19 19:44 Ordered CHEST X-RAY PORTABLE* [RAD] Stat Radiology 01/28/19 19:40 Taken Medical Decision Making - Medical Decision Making Pt was seen at bedside, also will be seen by attending Dr. Lopez. Pt presenting from [place] with rigors/muscle tremors vs break-through seizures, which lasted an unknown duration and unclear the regular frequency of her seizures. Will evaluate for electrolyte abnormalities, infection (UTI, pneumonia), seizure medication non-compliance (will check carbamazepine and keppra levels), brain mass/lesions/bleed. Will continue to reassess pt and monitor for symptomatic improvement. 01/28/19 20:32 Pt required 2 mg IV ativan for sedation, pt not tolerating CT scan. Labs drawn, straight cath for UA, pt taken for CT scan. Vitals stable pre and post sedation, no further seizure activity noted. 01/28/19 21:30 CBC- WBC 13 CMP generally WNL Carbamazepine level WNL, keppra level will come back over next 1-2 days UA with UTI -- will treat with PO liquid Keflex Pt still lethargic after ativan, pending behavior back to baseline and will d/c to [facility] [place] pending no further seizure activity. 01/28/19 22:42 Pt continues to be lethargic, not back at baseline. Pt requires admission for further monitoring due to seizure breakthrough and abx for UTI. Pt admitted to hospitalist team (Dr. Valderrama). 01/28/19 23:51 Discharge - Discharge Information Problems reviewed: Yes Clinical Impression/Diagnosis: Mental retardation, Seizure, Post-ictal state Condition: Stable - Admission Yes - Follow up/Referral Referrals: Aniket Guzman MD [Primary Care Provider] - - Patient Discharge Instructions - Post Discharge Activity
[2019-01-28] MEDS ORDERED: LORazepam 2 MG/ML SDV VIAL ONE (21:01)
[2019-01-28 21:57] LABS: BASO % 0.6 % (0-2.0); HEMATOCRIT 38.8 % (32.4-45.2); LYMPH % 26.7 % (8-40); MCH 25.7 pg (25.7-33.7); MEAN CELL VOLUME 82.9 fl (80-96); MEAN PLT VOLUME 10.7 fl (7.5-11.1); NEUT % 62.7 % (42.8-82.8); PLATELET COUNT 279 K/MM3 (134-434); RBC 4.68 M/mm3 (3.60-5.2); RDW 14.8 % (11.6-15.6); WHITE BLOOD COUNT 13.1 K/mm3 (4.0-10.0)
[2019-01-28 22:00] LABS: EPI CELLS 9.8 /HPF (0-5/HPF); HYALINE CASTS 7 /lpf (0-8); URINE APPEARANCE CLOUDY; URINE BACTERIA 78.1 /hpf (NEGATIVE); URINE BILIRUBIN NEGATIVE (NEGATIVE); URINE COLOR YELLOW; URINE GLUCOSE (UA) NEGATIVE (NEGATIVE); URINE KETONE TRACE (NEGATIVE); URINE LEUK ESTERASE TRACE (NEGATIVE); URINE NITRITE NEGATIVE (NEGATIVE); URINE PROTEIN NEGATIVE (NEGATIVE); URINE WBC 5 /hpf (0-5)
[2019-01-28 22:13] LABS: ALBUMIN 3.8 g/dl (3.4-5.0); BILIRUBIN,TOTAL 0.3 mg/dL (0.2-1); CALCIUM 9.4 mg/dL (8.5-10.1); CREATININE 0.7 mg/dL (0.55-1.3); TOT PROT 8.6 g/dl (6.4-8.2)
[2019-01-28 22:14] LABS: BLOOD UREA NITROGEN 16.2 mg/dL (7-18); POTASSIUM 4.7 mmol/L (3.5-5.1)
[2019-01-28] MEDS ORDERED: CEPHALEXIN 250 MG/5 ML ORAL SUSPENSION PO ONE (22:37)
[2019-01-28] MEDS ORDERED: CEPHALEXIN 250 MG/5 ML ORAL SUSPENSION ONE (23:08)
--- NOTE | 2019-01-29 01:05 | HP ---
Admitting History and Physical - Primary Care Physician PCP: Dr. Valderrama - Admission Chief Complaint: Tremors History of Present Illness: 73 yo F, with PMH of mental retardation, epilepsy, chronic constipation and dysphagia arrived to ED via EMS from [facility] for "intermittent tremors of the head and b/l LEs with increased lethargy after shaking, evaluate for breakthrough seizures" unclear how often the pt has seizures, as she has not been to our institution in some time. Pt is limited verbal due to MR and cannot provide additional ROS. 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, Other (mental retardation, epilepsy) Gastrointestinal: Yes: Constipation - Past Surgical History Past Surgical History: Yes: None - Smoking History Smoking history: Smoker current status UNK Have you smoked in the past 12 months: No Aproximately how many cigarettes per day: 0 - Alcohol/Substance Use Hx Alcohol Use: No History of Substance Use: reports: None - Social History Usual Living Arrangement: Yes: Alf ADL: Support Services History of Recent Travel: No Home Medications - Allergies Allergies/Adverse Reactions: Allergies Allergy/AdvReac Type Severity Reaction Status Date / Time No Known Allergies Allergy Verified 07/26/17 00:34 - Home Medications Home Medications: Ambulatory Orders Carbamazepine [Tegretol] 400 mg PO BID 03/14/11 Docusate Sodium [Colace] 300 mg PO HS 03/14/11 Aa/Hydrolyzed Collagen, Whey [Lps 15-30 Liquid] 30 ml PO BID 07/26/17 Acetaminophen [Tylenol] 650 mg PO QID PRN 07/26/17 Ascorbic Acid [Vitamin C -] 500 mg PO DAILY 07/26/17 Bisacodyl Suppository [Dulcolax Suppository -] 10 mg RC ASDIR 07/26/17 Calcium Carbonate/Vitamin D3 [Oyster Shell 500-Vit D3 200 Tb] 1 each PO BID Cholecalciferol (Vitamin D3) [Vitamin D3] 1,000 unit PO DAILY 07/26/17 Latanoprost 0.005% Eye Drops [Xalatan 0.005% Eye Drops -] 1 drop OU HS 07/26/17 Multivit-Min/Iron/Folic Acid/K [Multi-Day Plus Minerals Tablet] 1 each PO DAILY 07/26/17 Psyllium Husk/Aspartame [Metamucil Powder] 3.4 gm PO DAILY 07/26/17 Sennosides [Senna -] 2 tab PO DAILY 07/26/17 Linaclotide [Linzess] 290 mcg PO DAILY 01/29/19 levETIRAcetam [levETIRAcetam ORAL SUSPENSION] 10 ml PO BID 01/29/19 Family Medical History Family History: Unable to Obtain Review of Systems Unable to obtain ROS, reason: severe MR Physical Examination Vital Signs: Vital Signs Temperature 98.0 F 01/28/19 18:06 Pulse Rate 69 01/28/19 22:58 Respiratory Rate 18 01/28/19 22:58 Blood Pressure 149/87 01/28/19 22:58 O2 Sat by Pulse Oximetry (%) 99 01/28/19 22:58 Constitutional: Yes: No Distress, Calm Eyes: Yes: Conjunctiva Clear, EOM Intact HENT: Yes: Atraumatic, Normocephalic Neck: Yes: Supple, Trachea Midline Cardiovascular: Yes: Regular Rate and Rhythm Respiratory: Yes: Regular, CTA Bilaterally Gastrointestinal: Yes: Normal Bowel Sounds, Soft Musculoskeletal: Yes: WNL Neurological: Yes: Alert, Confusion Labs: CBC, BMP 01/28/19 21:13 01/28/19 21:13 Imaging - Results Chest X-ray: Report Reviewed (No acute pathology) Cat Scan: Report Reviewed (No acute intracranial pathology) Problem List - Problems (1) Post-ictal state Code(s): R56.9 - UNSPECIFIED CONVULSIONS (2) Seizure Code(s): R56.9 - UNSPECIFIED CONVULSIONS (3) Leukocytosis Code(s): D72.829 - ELEVATED WHITE BLOOD CELL COUNT, UNSPECIFIED (4) UTI (urinary tract infection) Code(s): N39.0 - URINARY TRACT INFECTION, SITE NOT SPECIFIED (5) Mental retardation Code(s): F79 - UNSPECIFIED INTELLECTUAL DISABILITIES (6) Constipation Code(s): K59.00 - CONSTIPATION, UNSPECIFIED Assessment/Plan 73 yo F, with PMH of mental retardation, epilepsy, chronic constipation and dysphagia arrived to ED via EMS from [facility] for "intermittent tremors of the head and b/l LEs with increased lethargy after shaking, evaluate for breakthrough seizures" unclear how often the pt has seizures, as she has not been to our institution in some time. Pt is limited verbal due to MR and cannot provide additional ROS. Pt presenting from [place] with rigors/muscle tremors vs break-through seizures, which lasted an unknown duration and unclear the regular frequency of her seizures. # Seizure vs muscle tremors admit to tele CT head: no acute intracranial pathology - Carbamazepine level WNL - Follow up keppra level - Carbamazepine 200 mg PO BID - Keppra 1000 mg BID - Follow up neurology # Leukocytosis, ? UTI -CBC- WBC 13 -UA + , in ED given PO liquid Keflex -CXR: no acute pathology - follow cultures -will continue with PO keflex -trend cbc # Mental retardation - agitated in ED, given 2 mg IV ativan for sedation - safety/fall precaution # Constipation -Psyllium Husk/Aspartame 3.4 gm PO DAILY -Docusate Sodium 300 mg PO HS -continue with Linzess daily DIET: Regular VTE: Heparin SQ Visit type - Emergency Visit Emergency Visit: Yes ED Registration Date: 01/28/19 Care time: The patient presented to the Emergency Department on the above date and was hospitalized for further evaluation of their emergent condition. - New Patient This patient is new to me today: Yes Date on this admission: 01/29/19 - Critical Care Critical Care patient: No
[2019-01-29] MEDS ORDERED: ACETAMINOPHEN 325 MG TABLET (FP) PO PRN (01:18)
[2019-01-29] MEDS ORDERED: CEPHALEXIN MONOHYDRATE 500 MG CAPSULE (UD) PO SCH (06:00)
[2019-01-29] MEDS: CEPHALEXIN 250 MG/5 ML ORAL SUSPENSION PO SCH ×2 (06:03→13:57)
[2019-01-29] MEDS ORDERED: PATIENT'S OWN MEDICATION (NON-FORMULARY) (Linaclotide [Linzess] 290 MCG) PO SCH (10:00)
[2019-01-29] MEDS ORDERED: carBAMazepine 100 MG TAB.CHEW PO SCH (10:00)
[2019-01-29] MEDS ORDERED: [UNRECOGNIZED DRUG - OTHER] PO SCH (10:00)
[2019-01-29] MEDS ORDERED: FLU VACCINE QUAD 60 MCG/0.5 ML (MDV 19-20) IM ONE (10:00)
[2019-01-29] MEDS ORDERED: LEVETIRACETAM 1000 MG PO SCH (10:00)
--- NOTE | 2019-01-29 10:03 | CONSULT ---
Consult - text type - Consultation Consultation Note: NEUROLOGY CONSULT GREATLY APPRECIATED: This 73 yo woman from [facility] with Static Encephalopathy (CP), seizure disorder, dysphagia, and constipation. On: Carbamazapine (CBZ) 400 mg BID, Linzess, levetertiracetam suspension (100/ml ) 10 ml BID (=100 mg BID). Seizures apparently well-controlled for some time. Presents from [place] after unknown period of "tremor of head and shaking of L/E." In ED, head CT obtained (reviewed): B/L parietal encephalomalacia with ex vacuo ventricular dilation R > L. Required 2 mg IV Ativan to be placed in CT scan comfortably. Now on leveteracitam 1 gram po q12H and CBZ 200 mg po BID. Received AM dosing of AED's orally, but did not receive dose yesterday evening while in ED. WBC= 13.7K CBZ= 13.5 mg%; levetiracetam level pending; UA WBC= 5 - empirically on PO Cephalexin CORIE: Cor reg. Afebrile. Restricted neck ROM in all directions. Early contracture L knee. Contracture vs. Arthritic changes in R hand/wrist. NEURO: Awake, alert. Follows some commands. Speech sparse. Responds to name. Persevative "Yes." CNII-CNXII: OD esotropia. Full EOM's OS. No obvious facial. Drooling. Motor: No obvious drift or tremor. Unable to perform Formal strength testing. Mild L arm hemiparesis. Spontanous mvmt's R hand. Reflexes brisk throughout including AJ's. Plantars silent. Sensation: Reduced pinch in all fours. Impression: Mod-Severe B/L Cerebral Dysfunction (CP, chronic) Seizure disorder Worsened by Toxic-Metabolic Encephalopathy (?UTI) Suggest: Continue antibiotics and hydration. Consider IV if PO not well tolerated Load with IV leveteracitam 1000 mg x1. Then q12H PO/IV while awaiting levels. Can use keppra elixor when taking PO well Change CBZ to 200mg QID (change to suspension or chewable for tolerability). Short-acting tegretol cannot be given q 12 hrs. Repeat level prior to D/C. If it remains high, would reduce Tegretol to 200 mg TID Thank you very much, Fransico Dumont MD
[2019-01-29] MEDS ORDERED: PT OWN MED DRAWER 7, Y5N ONE ×5 (10:17→22:32)
[2019-01-29] MEDS: levETIRAcetam 500 MG TABLET (FP) PO SCH ×2 (10:19→22:27)
[2019-01-29] MEDS: HEPARIN NA (PORCINE) 5,000 UNITS/ML 1ML VIAL SQ SCH ×2 (10:19→22:27)
--- NOTE | 2019-01-29 10:33 | EKG ---
Test Reason : Blood Pressure : / mmHG Vent. Rate : 067 BPM Atrial Rate : 258 BPM P-R Int : 000 ms QRS Dur : 072 ms QT Int : 400 ms P-R-T Axes : 000 012 010 degrees QTc Int : 422 ms ACCELERATED JUNCTIONAL RHYTHM MODERATE VOLTAGE CRITERIA FOR LVH, MAY BE NORMAL VARIANT ABNORMAL ECG WHEN COMPARED WITH ECG OF 26-JUL-2017 02:26, JUNCTIONAL RHYTHM HAS REPLACED SINUS RHYTHM Confirmed by OLIVIA PERES, NAAID ([id number]) on 01/29/2019 10:33:15 AM Referred By: Confirmed By:ANAID BAKER MD
[2019-01-29] MEDS: PSYLLIUM 5.85 GM PACKET PO SCH (11:53)
--- NOTE | 2019-01-29 12:05 | PN ---
Progress Note (short form) - Note Progress Note: Admitted for questionable breakthrough seizures vs tremors nonverbal Vital Signs - 24 hr 01/28/19 01/28/19 01/28/19 18:06 21:55 22:00 Temperature 98.0 F Pulse Rate 63 Pulse Rate [ 89 Radial] Respiratory 16 Rate Blood Pressure 150/101 H Blood Pressure 149/106 H [Right Arm] O2 Sat by Pulse 94 L 99 Oximetry (%) 01/28/19 01/28/19 01/29/19 22:15 22:58 03:24 Temperature 97.6 F Pulse Rate Pulse Rate [ 69 69 60 Radial] Respiratory 16 18 15 Rate Blood Pressure Blood Pressure 136/85 149/87 133/72 [Right Arm] O2 Sat by Pulse 99 99 95 Oximetry (%) 01/29/19 01/29/19 06:00 09:00 Temperature 97.6 F 97.8 F Pulse Rate 60 66 Pulse Rate [ Radial] Respiratory 20 18 Rate Blood Pressure 162/70 148/70 Blood Pressure [Right Arm] O2 Sat by Pulse 97 Oximetry (%) Current Medications Generic Name Dose Route Start Last Admin Trade Name Freq PRN Reason Stop Dose Admin Acetaminophen 650 mg 01/29/19 01:18 Tylenol - PO QID PRN PAIN Carbamazepine 200 mg 01/29/19 10:00 01/29/19 11:52 Tegretol - PO 200 mg BID BRIAN Administration Cephalexin 500 mg 01/29/19 06:00 01/29/19 06:03 Keflex Oral Suspension - PO 02/04/19 23:59 Not Given Q6HPO BRIAN Docusate Sodium 300 mg 01/29/19 22:00 Colace Liquid - PO HS BRIAN Heparin Sodium (Porcine) 5,000 unit 01/29/19 10:00 01/29/19 10:19 Heparin - SQ 5,000 unit BID BRIAN Administration Levetiracetam 1,000 mg 01/29/19 10:00 01/29/19 10:19 Keppra - PO 1,000 mg BID BRIAN Administration Non-Formulary Medication 290 mcg 01/29/19 10:00 Linaclotide [Linzess] PO DAILY BRIAN Psyllium Hydrophilic Mucilloid 5.85 gm 01/29/19 10:00 01/29/19 11:53 Metamucil (Sugar-Free) - PO 5.85 gm DAILY BRIAN Administration Laboratory Results - last 24 hr 01/28/19 01/28/19 01/28/19 20:09 21:13 21:13 WBC 13.1 H RBC 4.68 Hgb 12.0 Hct 38.8 D MCV 82.9 MCH 25.7 MCHC 31.0 L RDW 14.8 Plt Count 279 D MPV 10.7 Absolute Neuts (auto) 8.2 H Neutrophils % 62.7 Lymphocytes % 26.7 Monocytes % 5.0 Eosinophils % 5.0 H Basophils % 0.6 Nucleated RBC % 0 Sodium Potassium Chloride Carbon Dioxide Anion Gap BUN Creatinine Est GFR (CKD-EPI)AfAm Est GFR (CKD-EPI)NonAf POC Glucometer 80 Random Glucose Calcium Total Bilirubin AST ALT Alkaline Phosphatase Total Protein Albumin Urine Color Urine Appearance Urine pH Ur Specific Alpha Urine Protein Urine Glucose (UA) Urine Ketones Urine Blood Urine Nitrite Urine Bilirubin Urine Urobilinogen Ur Leukocyte Esterase Urine WBC (Auto) Urine Casts (Auto) U Epithel Cells (Auto) Urine Bacteria (Auto) Urine Yeast (Auto) Carbamazepine 11.7 01/28/19 01/28/19 21:13 21:20 WBC RBC Hgb Hct MCV MCH MCHC RDW Plt Count MPV Absolute Neuts (auto) Neutrophils % Lymphocytes % Monocytes % Eosinophils % Basophils % Nucleated RBC % Sodium 140 Potassium 4.7 Chloride 106 Carbon Dioxide 27 Anion Gap 7 L BUN 16.2 Creatinine 0.7 Est GFR (CKD-EPI)AfAm 98.92 Est GFR (CKD-EPI)NonAf 85.35 POC Glucometer Random Glucose 83 Calcium 9.4 Total Bilirubin 0.3 AST 22 ALT 24 Alkaline Phosphatase 203 H Total Protein 8.6 H Albumin 3.8 Urine Color Yellow Urine Appearance Cloudy Urine pH 5.0 Ur Specific Alpha 1.033 Urine Protein Negative Urine Glucose (UA) Negative Urine Ketones Trace H Urine Blood Negative Urine Nitrite Negative Urine Bilirubin Negative Urine Urobilinogen 1.0 Ur Leukocyte Esterase Trace Urine WBC (Auto) 5 Urine Casts (Auto) 7 U Epithel Cells (Auto) 9.8 Urine Bacteria (Auto) 78.1 Urine Yeast (Auto) 1-5 Carbamazepine S1 s2 RRR Lungs decreased Abd- soft, NT no edema CXR-- negative CT head-- negative EKG-- LVH ,junctional rhythm PLAN possible UTI-- will dc Keflex and start IV ceftriaxone Await urine cultures Neurology eval continue with meds BP better controlled seizure precautions Problem List - Problems (1) Mental retardation Code(s): F79 - UNSPECIFIED INTELLECTUAL DISABILITIES (2) Post-ictal state Code(s): R56.9 - UNSPECIFIED CONVULSIONS (3) Seizure Code(s): R56.9 - UNSPECIFIED CONVULSIONS (4) UTI (urinary tract infection) Code(s): N39.0 - URINARY TRACT INFECTION, SITE NOT SPECIFIED
[2019-01-29] MEDS ORDERED: cefTRIAXone SODIUM 1 GM VIAL ONE (12:41)
[2019-01-29] MEDS ORDERED: levETIRAcetam 500 MG/5 ML INJECTION VIAL IVPB ONE (12:41)
[2019-01-29] MEDS ORDERED: DEXTROSE 5%-WATER - 50 ML IVPB ONE (12:41)
[2019-01-29] MEDS: CEFTRIAXONE 1 GM in DEXTROSE 5%-WATER - 50 ML IVPB SCH (13:53)
[2019-01-29] MEDS: carBAMazepine 100 MG TAB.CHEW PO SCH ×3 (14:50→22:35)
[2019-01-29] MEDS: DOCUSATE NA 100 MG/10 ML UNIT-DOSE CUPS PO SCH (22:27)
[2019-01-30 07:37] LABS: BASO % 0.3 % (0-2.0); EOS % 5.6 % (0-4.5); HEMATOCRIT 31.2 % (32.4-45.2); HEMOGLOBIN 10.1 GM/dL (10.7-15.3); LYMPH % 20.4 % (8-40); MCH 26.3 pg (25.7-33.7); MCHC 32.3 g/dl (32.0-36.0); MEAN CELL VOLUME 81.4 fl (80-96); MEAN PLT VOLUME 10.1 fl (7.5-11.1); MONO % 5.3 % (3.8-10.2); NEUT % 68.4 % (42.8-82.8); PLATELET COUNT 220 K/MM3 (134-434); RBC 3.84 M/mm3 (3.60-5.2); RDW 14.2 % (11.6-15.6); WHITE BLOOD COUNT 6.8 K/mm3 (4.0-10.0)
[2019-01-30 08:47] LABS: BLOOD UREA NITROGEN 10.9 mg/dL (7-18); CALCIUM 8.8 mg/dL (8.5-10.1); CREATININE 0.6 mg/dL (0.55-1.3); POTASSIUM 4.1 mmol/L (3.5-5.1)
[2019-01-30] MEDS ORDERED: PT OWN MED DRAWER 7, Y5N ONE (09:34)
[2019-01-30] MEDS ORDERED: DEXTROSE 5%-WATER - 50 ML IVPB ONE (09:34)
[2019-01-30] MEDS ORDERED: cefTRIAXone SODIUM 1 GM VIAL ONE (09:34)
[2019-01-30] MEDS: CEFTRIAXONE 1 GM in DEXTROSE 5%-WATER - 50 ML IVPB SCH (09:43)
[2019-01-30] MEDS: levETIRAcetam 500 MG TABLET (FP) PO SCH ×2 (09:44→22:14)
[2019-01-30] MEDS: HEPARIN NA (PORCINE) 5,000 UNITS/ML 1ML VIAL SQ SCH ×2 (09:44→22:14)
[2019-01-30] MEDS: carBAMazepine 100 MG TAB.CHEW PO SCH ×4 (09:45→22:15)
[2019-01-30] MEDS: PSYLLIUM 5.85 GM PACKET PO SCH (09:45)
--- NOTE | 2019-01-30 10:47 | PN ---
Progress Note (short form) - Note Progress Note: talkative now Awake and alert no seizures Vital Signs - 24 hr 01/29/19 01/29/19 01/29/19 14:00 21:00 22:00 Temperature 98.1 F 98.9 F Pulse Rate 67 68 Respiratory 20 Rate Blood Pressure 136/67 110/78 O2 Sat by Pulse 98 Oximetry (%) 01/30/19 01/30/19 01/30/19 02:00 06:00 09:00 Temperature 98.2 F 98.4 F Pulse Rate 70 66 Respiratory 20 20 20 Rate Blood Pressure 120/57 L 129/66 O2 Sat by Pulse 99 Oximetry (%) 01/30/19 10:00 Temperature 97.8 F Pulse Rate 70 Respiratory 18 Rate Blood Pressure 143/78 O2 Sat by Pulse Oximetry (%) Current Medications Generic Name Dose Route Start Last Admin Trade Name Freq PRN Reason Stop Dose Admin Acetaminophen 650 mg 01/29/19 01:18 Tylenol - PO QID PRN PAIN Carbamazepine 200 mg 01/29/19 14:00 01/30/19 09:45 Tegretol - PO 200 mg QID BRIAN Administration Docusate Sodium 300 mg 01/29/19 22:00 01/29/19 22:27 Colace Liquid - PO 300 mg HS BRIAN Administration Heparin Sodium (Porcine) 5,000 unit 01/29/19 10:00 01/30/19 09:44 Heparin - SQ 5,000 unit BID BRIAN Administration Ceftriaxone Sodium 1 gm/ 50 mls @ 100 mls/hr 01/29/19 12:15 01/30/19 09:43 Dextrose IVPB 100 mls/hr DAILY@0800 BRIAN Administration Levetiracetam 1,000 mg 01/29/19 10:00 01/30/19 09:44 Keppra - PO 1,000 mg BID BRIAN Administration Non-Formulary Medication 290 mcg 01/29/19 10:00 Linaclotide [Linzess] PO DAILY BRIAN Psyllium Hydrophilic Mucilloid 5.85 gm 01/29/19 10:00 01/30/19 09:45 Metamucil (Sugar-Free) - PO 5.85 gm DAILY BRIAN Administration Laboratory Results - last 24 hr 01/29/19 01/30/19 01/30/19 12:25 06:45 06:45 WBC 6.8 Corrected WBC (auto) RBC 3.84 Hgb 10.1 L Hct 31.2 L D MCV 81.4 MCH 26.3 MCHC 32.3 RDW 14.2 Plt Count 220 D MPV 10.1 Absolute Neuts (auto) 4.7 Neutrophils % 68.4 Lymphocytes % 20.4 D Monocytes % 5.3 Eosinophils % 5.6 H Basophils % 0.3 Nucleated RBC % 0 Manual Slide Review Platelet Comment Sodium 140 Potassium 4.1 Chloride 105 Carbon Dioxide 30 Anion Gap 5 L BUN 10.9 Creatinine 0.6 Est GFR (CKD-EPI)AfAm 104.07 Est GFR (CKD-EPI)NonAf 89.79 Random Glucose 77 Calcium 8.8 TSH 1.71 Free T4 0.77 S1 s2 RRR Lungs decreased Abd- soft, NT no edema CXR-- negative CT head-- negative EKG-- LVH ,junctional rhythm PLAN possible UTI-- IV ceftriaxone continue with meds Neurology eval appreciated meds noted check tegretol level today dc plan for tomorrow after iv ceftriaxone dose BP better controlled seizure precautions Problem List - Problems (1) Mental retardation Code(s): F79 - UNSPECIFIED INTELLECTUAL DISABILITIES (2) Post-ictal state Code(s): R56.9 - UNSPECIFIED CONVULSIONS (3) Seizure Code(s): R56.9 - UNSPECIFIED CONVULSIONS (4) UTI (urinary tract infection) Code(s): N39.0 - URINARY TRACT INFECTION, SITE NOT SPECIFIED
[2019-01-30] MEDS: DOCUSATE NA 100 MG/10 ML UNIT-DOSE CUPS PO SCH ×2 (22:14→22:29)
[2019-01-31] MEDS ORDERED: PT OWN MED DRAWER 7, Y5N ONE (10:48)
[2019-01-31] MEDS: HEPARIN NA (PORCINE) 5,000 UNITS/ML 1ML VIAL SQ SCH (10:52)
[2019-01-31] MEDS: levETIRAcetam 500 MG TABLET (FP) PO SCH (10:53)
[2019-01-31] MEDS: PSYLLIUM 5.85 GM PACKET PO SCH (10:53)
[2019-01-31] MEDS: carBAMazepine 100 MG TAB.CHEW PO SCH (10:53)
[2019-01-31] MEDS: CEFTRIAXONE 1 GM in DEXTROSE 5%-WATER - 50 ML IVPB SCH (11:02)
[2019-01-31 11:32] VITALS: BP 145/67; PULSE 68; TEMP 98
--- NOTE | 2019-01-31 11:39 | PN ---
Progress Note (short form) - Note Progress Note: NEUROLOGY PROGRESS: Loaded with leveteracitam 1 gram x 1. Now on leveteracitam 1 gram q12H and carbamazepine 200 mg QID crushed in applesauce. Empirically on IV ceftriaxone for UTI. No further seizure activity reported. WBC= 13.7K-> 6.7K repeat CBZ= 13 mg%; pending leveteracitam level CORIE: Afebrile. NEURO: Awake, alert. Follows minimal commands. Speech sparse. Responds to name. Can make simple Yes/No needs known. Exam otherwise unchanged. Impression: Mod-Severe B/L Cerebral Dysfunction (CP, chronic) Seizure disorder Worsened by Toxic-Metabolic Encephalopathy (UTI) Suggest: Continue antibiotics and hydration. Continue leveteracitam 1 gram PO q12H Continue CBZ 200mg PO QID Pending D/C back to [place] Thank you very much, Fransico Dumont MD
--- NOTE | 2019-01-31 11:48 | DS ---
Physical Examination Vital Signs: Vital Signs Temperature 98 F 01/31/19 10:00 Pulse Rate 68 01/31/19 10:00 Respiratory Rate 20 01/31/19 10:00 Blood Pressure 145/67 01/31/19 10:00 O2 Sat by Pulse Oximetry (%) 97 01/31/19 07:46 Findings/Remarks: pt seen/ examined chart reviewed awake/ comfortable Constitutional: Yes: No Distress, Calm Eyes: Yes: Conjunctiva Clear Neck: Yes: Supple Cardiovascular: Yes: Regular Rate and Rhythm Respiratory: Yes: CTA Bilaterally Gastrointestinal: Yes: Soft Edema: No Neurological: Yes: Alert Psychiatric: Yes: Alert Labs: CBC, BMP 01/30/19 06:45 01/30/19 06:45 Discharge Summary Problems reviewed: Yes Reason For Visit: POSTICTAL STATE, SEIZURE Current Active Problems Constipation (Acute) Mental retardation (Acute) Post-ictal state (Acute) Seizure (Acute) UTI (urinary tract infection) (Acute) Hospital Course: In summary 73 yo F, with PMH of mental retardation, epilepsy, chronic constipation and dysphagia arrived to ED via EMS from [facility] for "intermittent tremors of the head and b/l LEs with increased lethargy after shaking, evaluate for breakthrough seizures" unclear how often the pt has seizures, as she has not been to our institution in some time. Pt is limited verbal due to MR and cannot provide additional ROS. ct head -ve for acute pathology cxr - ve u/a -- ? uti u/c not done !! 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 meds reconcilled Condition: Stable - Instructions Referrals: Aniket Guzman MD [Primary Care Provider] - - Home Medications Comprehensive Discharge Medication List: Ambulatory Orders Docusate Sodium [Colace] 300 mg PO HS 03/14/11 Aa/Hydrolyzed Collagen, Whey [Lps 15-30 Liquid] 30 ml PO BID 07/26/17 Acetaminophen [Tylenol] 650 mg PO QID PRN 07/26/17 Ascorbic Acid [Vitamin C -] 500 mg PO DAILY 07/26/17 Bisacodyl Suppository [Dulcolax Suppository -] 10 mg RC ASDIR 07/26/17 Calcium Carbonate/Vitamin D3 [Oyster Shell 500-Vit D3 200 Tb] 1 each PO BID Cholecalciferol (Vitamin D3) [Vitamin D3] 1,000 unit PO DAILY 07/26/17 Latanoprost 0.005% Eye Drops [Xalatan 0.005% Eye Drops -] 1 drop OU HS 07/26/17 Multivit-Min/Iron/Folic Acid/K [Multi-Day Plus Minerals Tablet] 1 each PO DAILY 07/26/17 Psyllium Husk/Aspartame [Metamucil Powder] 3.4 gm PO DAILY 07/26/17 Sennosides [Senna -] 2 tab PO DAILY 07/26/17 Linaclotide [Linzess] 290 mcg PO DAILY 01/29/19 levETIRAcetam [levETIRAcetam ORAL SUSPENSION] 10 ml PO BID 01/29/19 Carbamazepine [Tegretol -] 200 mg PO QID #90 tab.chew 01/30/19 Cephalexin [Keflex Oral Suspension -] 500 mg PO Q6HPO 4 Days #20 ml 01/30/19 levETIRAcetam [Keppra -] 1,000 mg PO BID #60 tablet 01/30/19 Ciprofloxacin [Cipro -] 500 mg PO BID #4 tablet 01/31/19 Heparin - 5,000 unit SQ BID vial 01/31/19 Psyllium [Metamucil (Sugar-Free) -] 5.85 gm PO DAILY packet 01/31/19
[2019-01-31 12:28] VITALS: BMI 26.5
[2019-02-01] MEDS ORDERED: CIPROFLOXACIN 500 MG TABLET (RESTRICTED TO ID) PO SCH (10:00)
== END 2019-01-31 12:10 | DRG 100 ==
LOC: JER 17:40 → JERBED 23:48 → J4W 01-29 05:31
PROVIDERS: ADMIT Internal Medicine; ATTEND Internal Medicine
DX: G40.909 Epilepsy, unspecified, not intractable, without status epilepticus (principal); G93.41 Metabolic encephalopathy; N39.0 Urinary tract infection, site not specified; D72.829 Elevated white blood cell count, unspecified; F79 Unspecified intellectual disabilities; K59.00 Constipation, unspecified
CPT/HCPCS: 36415; 70450-TC; 71045-TC-FY; 80048; 80053; 80177; 81003; 82962; 84439; 84443; 85025; 85027; 87086; 93005; 93010; 99285-25; G0008; J1644; Q2036

== ENCOUNTER 2020-06-28 22:13 | Inpatient (IN) | payer OTHER ==
[2020-06-28] MEDS ORDERED: SODIUM CHLORIDE IV ONE (22:31)
[2020-06-28] MEDS ORDERED: ACETAMINOPHEN 1000 MG/100 ML VIAL (NON FORMULARY) IVPB ONE (22:32)
[2020-06-28] MEDS ORDERED: ACETAMINOPHEN INJECTION 100 ML IVPB ONE (23:01)
[2020-06-28 23:13] LABS: BASO % 0.1 % (0-2.0); EOS % 1.3 % (0-4.5); HEMATOCRIT 27.8 % (32.4-45.2); HEMOGLOBIN 8.7 GM/dL (10.7-15.3); LYMPH % 9.2 % (8-40); MCH 25.7 pg (25.7-33.7); MCHC 31.4 g/dl (32.0-36.0); MEAN CELL VOLUME 82.1 fl (80-96); MEAN PLT VOLUME 9.3 fl (7.5-11.1); MONO % 5.7 % (3.8-10.2); NEUT % 83.7 % (42.8-82.8); PLATELET COUNT 389 K/MM3 (134-434); RBC 3.39 M/mm3 (3.60-5.2); RDW 15.1 % (11.6-15.6); WHITE BLOOD COUNT 16.8 K/mm3 (4.0-10.0)
[2020-06-28] MEDS ORDERED: PIPERACILLIN/TAZOB 3.375 GM 3.375 GM in DEXTROSE 5%-WATER - 50 ML IVPB ONE (23:16)
[2020-06-28] MEDS ORDERED: VANCOMYCIN 1 GM in D5W (PRE-DOCKED) 1,000 MG/250 ML IVPB ONE (23:16)
[2020-06-28] MEDS ORDERED: PIPERACILLIN/TAZOB 3.375 GM 3.375 GM/50 ML BAG IVPB ONE (23:19)
[2020-06-28 23:22] LABS: INR 1.6 (0.83-1.09); PROTHROMBIN TIME (PATIENT) 19.1 SEC (9.7-13.0)
[2020-06-28 23:24] LABS: ACTIVATED PTT 31.2 SECONDS (25.2-36.5)
[2020-06-28 23:32] LABS: CHLORIDE 105 mmol/L (98-107); SODIUM 146 mmol/L (136-145)
[2020-06-28 23:34] LABS: CALCIUM 8.7 mg/dL (8.5-10.1)
[2020-06-28 23:35] LABS: ALBUMIN 2.4 g/dl (3.4-5.0); ANION GAP 4 MMOL/L (8-16); BLOOD UREA NITROGEN 14.8 mg/dL (7-18); CO2 36 mmol/L (21-32); GLUCOSE,RANDOM 194 mg/dL (74-106)
[2020-06-28 23:38] LABS: CREATININE 0.7 mg/dL (0.55-1.3); SGOT/AST 26 U/L (15-37); SGPT/ALT 35 U/L (13-61)
[2020-06-28 23:40] LABS: BILIRUBIN,TOTAL 0.3 mg/dL (0.2-1); TOT PROT 6.8 g/dl (6.4-8.2)
[2020-06-28 23:41] LABS: ALK PHOS 96 U/L (45-117)
[2020-06-28 23:48] LABS: LACTIC ACID 2.3 mmol/L (0.4-2.0)
[2020-06-28] MEDS ORDERED: MAGNESIUM SULF 50% (8.12 MEQ/2 ML-1 GM VIAL) IVPB ONE (23:49)
[2020-06-28] MEDS ORDERED: POTASSIUM CHLORIDE ORAL LIQUID 20 MEQ/15 ML PO ONE (23:49)
[2020-06-29] MEDS ORDERED: MAGNESIUM SULFATE IN WATER 2 GM/50 ML IVPB IVPB ONE (00:06)
[2020-06-29 00:22] LABS: EPI CELLS 33 /uL (0-25.1); HYALINE CASTS 65 /uL (0-3.1); PH,URINE 5.5 (5.0-8.0); URINE APPEARANCE CLOUDY; URINE BILIRUBIN 1+ (NEGATIVE); URINE COLOR DK YELLOW; URINE GLUCOSE (UA) NEGATIVE (NEGATIVE); URINE KETONE TRACE (NEGATIVE); URINE LEUK ESTERASE 2+ (NEGATIVE); URINE NITRITE POSITIVE (NEGATIVE); URINE PROTEIN 1+ (NEGATIVE); URINE WBC 902 /uL (0-25.8)
[2020-06-29] MEDS ORDERED: VANCOMYCIN 1 GRAM (PRE-DOCKED) 1,000 MG/250 ML BAG IVPB ONE ×2 (00:38→23:00)
[2020-06-29] MEDS ORDERED: POTASSIUM CHLORIDE ORAL LIQUID 20 MEQ/15 ML ONE (00:38)
[2020-06-29 01:00] LABS: YEAST MANY (NEGATIVE)
[2020-06-29] MEDS ORDERED: SODIUM CHLORIDE 1,000 ML IV SCH (01:30)
[2020-06-29] MEDS ORDERED: PIPERACILLIN/TAZOB 3.375 GM 3.375 GM/50 ML BAG IVPB ONE (03:59)
[2020-06-29] MEDS ORDERED: BISACODYL 10 MG SUPP.RECT PR PRN (04:09)
[2020-06-29] MEDS: PIPERACILLIN/TAZOB 3.375 GM 3.375 GM in DEXTROSE 5%-WATER - 50 ML IVPB SCH ×5 (04:10→17:48)
[2020-06-29 06:28] LABS: HEMATOCRIT 26.4 % (32.4-45.2); HEMOGLOBIN 8.5 GM/dL (10.7-15.3); MCH 26.5 pg (25.7-33.7); MCHC 32.3 g/dl (32.0-36.0); MEAN CELL VOLUME 82.1 fl (80-96); PLATELET COUNT 341 K/MM3 (134-434); RBC 3.22 M/mm3 (3.60-5.2); RDW 14.8 % (11.6-15.6); WHITE BLOOD COUNT 18.6 K/mm3 (4.0-10.0)
[2020-06-29 06:44] LABS: CHLORIDE 108 mmol/L (98-107); SODIUM 146 mmol/L (136-145)
[2020-06-29 06:48] LABS: BLOOD UREA NITROGEN 9.2 mg/dL (7-18); CO2 33 mmol/L (21-32); GLUCOSE,RANDOM 109 mg/dL (74-106); LIPASE 103 U/L (73-393); MAGNESIUM 2.1 mg/dL (1.8-2.4)
[2020-06-29 06:49] LABS: CALCIUM 7.9 mg/dL (8.5-10.1)
[2020-06-29 06:50] LABS: CREATININE 0.5 mg/dL (0.55-1.3)
[2020-06-29 06:52] LABS: ANION GAP 4 MMOL/L (8-16)
[2020-06-29] MEDS: KCL 10 MEQ IVPB 10 MEQ/100 ML INFUS.BAG IVPB SCH ×3 (07:52→11:05)
[2020-06-29] MEDS ORDERED: KCL 10 MEQ IVPB 30 MEQ/300 ML INFUS.BAG IVPB ONE (07:52)
[2020-06-29] MEDS ORDERED: levETIRAcetam 500 MG/5 ML INJECTION VIAL IVPB SCH (10:00)
[2020-06-29] MEDS ORDERED: VANCOMYCIN 1 GM in D5W (PRE-DOCKED) 1,000 MG/250 ML IVPB SCH (10:00)
[2020-06-29] MEDS ORDERED: DEXTROSE 5%-WATER - 50 ML IVPB ONE ×2 (10:53→17:54)
[2020-06-29] MEDS ORDERED: PIPERACILLIN/TAZOBACTAM 3.375 GM VIAL IVPB ONE ×2 (10:53→17:54)
[2020-06-29] MEDS ORDERED: DEXTROSE 5%-0.45% SALINE 1,000 ML IV SCH (12:15)
[2020-06-29] MEDS ORDERED: PHYTONADIONE 10 MG/1 ML AMP IVPB ONE ×2 (12:15→18:30)
[2020-06-29] MEDS ORDERED: levETIRAcetam 500 MG/5 ML INJECTION VIAL IVPB PRN (12:20)
[2020-06-29 12:54] LABS: LACTIC ACID 2.1 mmol/L (0.4-2.0)
[2020-06-29] MEDS ORDERED: ACETAMINOPHEN 1000 MG/100 ML VIAL (NON FORMULARY) IVPB PRN (13:33)
[2020-06-29] MEDS: PANTOPRAZOLE SODIUM 40 MG VIAL IVPUSH SCH (17:25)
[2020-06-29] MEDS: D5-NS + 20 MEQ KCL - 20 MEQ/1,000 ML INFUS.BAG IV SCH (17:26)
[2020-06-29] MEDS ORDERED: PT OWN MED DRAWER 7, Y5N ONE (17:53)
[2020-06-29] MEDS: levETIRAcetam 500 MG/5 ML INJECTION VIAL IVPB SCH (21:27)
[2020-06-29] MEDS ORDERED: levETIRAcetam 500 MG TABLET (FP) PO SCH (22:00)
[2020-06-30] MEDS ORDERED: DEXTROSE 5%-WATER - 50 ML IVPB ONE ×3 (01:23→16:54)
[2020-06-30] MEDS ORDERED: PIPERACILLIN/TAZOBACTAM 3.375 GM VIAL IVPB ONE ×3 (01:23→16:53)
[2020-06-30] MEDS: PIPERACILLIN/TAZOB 3.375 GM 3.375 GM in DEXTROSE 5%-WATER - 50 ML IVPB SCH ×3 (01:27→17:04)
[2020-06-30] MEDS: D5-NS + 20 MEQ KCL - 20 MEQ/1,000 ML INFUS.BAG IV SCH ×3 (06:24→21:44)
[2020-06-30 09:53] LABS: BASO % 0.3 % (0-2.0); EOS % 2.4 % (0-4.5); HEMATOCRIT 25.5 % (32.4-45.2); HEMOGLOBIN 8.2 GM/dL (10.7-15.3); LYMPH % 12.5 % (8-40); MCH 26.7 pg (25.7-33.7); MCHC 32.3 g/dl (32.0-36.0); MEAN CELL VOLUME 82.6 fl (80-96); MEAN PLT VOLUME 9.4 fl (7.5-11.1); MONO % 4.8 % (3.8-10.2); PLATELET COUNT 381 K/MM3 (134-434); RBC 3.09 M/mm3 (3.60-5.2); RDW 15.2 % (11.6-15.6); WHITE BLOOD COUNT 16.2 K/mm3 (4.0-10.0)
[2020-06-30 10:16] LABS: BILIRUBIN,TOTAL 0.4 mg/dL (0.2-1)
[2020-06-30 10:50] LABS: ALBUMIN 2.1 g/dl (3.4-5.0); BLOOD UREA NITROGEN 5.8 mg/dL (7-18); CALCIUM 8.2 mg/dL (8.5-10.1); CREATININE 0.5 mg/dL (0.55-1.3); TOT PROT 6.1 g/dl (6.4-8.2)
[2020-06-30] MEDS: PANTOPRAZOLE SODIUM 40 MG VIAL IVPUSH SCH (10:53)
[2020-06-30] MEDS: levETIRAcetam 500 MG/5 ML INJECTION VIAL IVPB SCH ×2 (10:53→21:49)
[2020-07-01] MEDS ORDERED: PIPERACILLIN/TAZOBACTAM 3.375 GM VIAL IVPB ONE ×2 (01:06→09:43)
[2020-07-01] MEDS ORDERED: DEXTROSE 5%-WATER - 50 ML IVPB ONE ×2 (01:06→09:44)
[2020-07-01] MEDS: PIPERACILLIN/TAZOB 3.375 GM 3.375 GM in DEXTROSE 5%-WATER - 50 ML IVPB SCH ×3 (01:12→18:42)
[2020-07-01 08:56] LABS: BASO % 0.4 % (0-2.0); EOS % 3.3 % (0-4.5); HEMATOCRIT 26.6 % (32.4-45.2); HEMOGLOBIN 8.7 GM/dL (10.7-15.3); LYMPH % 15.9 % (8-40); MCH 26.8 pg (25.7-33.7); MCHC 32.6 g/dl (32.0-36.0); MEAN PLT VOLUME 8.9 fl (7.5-11.1); MONO % 5.5 % (3.8-10.2); NEUT % 74.9 % (42.8-82.8); PLATELET COUNT 406 K/MM3 (134-434); RBC 3.25 M/mm3 (3.60-5.2); RDW 14.8 % (11.6-15.6); WHITE BLOOD COUNT 11.3 K/mm3 (4.0-10.0)
[2020-07-01 09:21] LABS: CALCIUM 7.8 mg/dL (8.5-10.1)
[2020-07-01 09:22] LABS: ALBUMIN 2.1 g/dl (3.4-5.0)
[2020-07-01 09:25] LABS: CREATININE 0.4 mg/dL (0.55-1.3)
[2020-07-01 09:26] LABS: BILIRUBIN,TOTAL 0.5 mg/dL (0.2-1); TOT PROT 5.9 g/dl (6.4-8.2)
[2020-07-01] MEDS: PANTOPRAZOLE SODIUM 40 MG VIAL IVPUSH SCH (09:45)
[2020-07-01] MEDS ORDERED: PT OWN MED DRAWER 7, Y5N ONE (10:44)
[2020-07-01] MEDS: D5-NS + 20 MEQ KCL - 20 MEQ/1,000 ML INFUS.BAG IV SCH (14:27)
[2020-07-01] MEDS: levETIRAcetam 500 MG/5 ML INJECTION VIAL IVPB SCH (14:27)
[2020-07-01 19:06] LABS: GLIADIN ANTIBODY IGA 3 units (0-19); GLIADIN ANTIBODY IGG 3 units (0-19); TRANSGLUTAMINASE IGG < 2 U/mL (0-5)
[2020-07-01] MEDS: levETIRAcetam 500 MG/5 ML ORAL SOLUTION (UNIT-DOSE CUPS) PO SCH (21:12)
[2020-07-02] MEDS: PIPERACILLIN/TAZOB 3.375 GM 3.375 GM in DEXTROSE 5%-WATER - 50 ML IVPB SCH ×2 (03:07→16:11)
[2020-07-02] MEDS: levETIRAcetam 500 MG/5 ML ORAL SOLUTION (UNIT-DOSE CUPS) PO SCH (11:25)
[2020-07-02] MEDS: PANTOPRAZOLE SODIUM 40 MG VIAL IVPUSH SCH (14:00)
[2020-07-02] MEDS ORDERED: MEROPENEM 1 GM VIAL (RESTRICTED TO ID) IVPB ONE (16:17)
[2020-07-02] MEDS ORDERED: DEXTROSE 5%-WATER 100 ML IVPB ONE (16:17)
[2020-07-02] MEDS: MEROPENEM 1 GM in DEXTROSE 5%-WATER 100 ML IVPB SCH ×2 (16:45→16:48)
[2020-07-02] MEDS: BISACODYL 10 MG SUPP.RECT RC SCH (16:49)
[2020-07-02] MEDS ORDERED: PT OWN MED DRAWER 7, Y5N ONE (17:19)
[2020-07-02] MEDS: carBAMazepine 100 MG TAB.CHEW PO SCH ×3 (17:46→22:46)
[2020-07-02] MEDS: levETIRAcetam 500 MG TABLET (FP) PO SCH (22:44)
[2020-07-02] MEDS: DOCUSATE NA 100 MG/10 ML UNIT-DOSE CUPS PO SCH (22:44)
[2020-07-02] MEDS: CALCIUM 500MG/VIT-D 200 UNITS COMBO TABLET (FP) PO SCH (22:46)
[2020-07-02] MEDS: LATANOPROST 0.005% OPHTH SOLN 2.5ML BOTTLE OU SCH (22:51)
[2020-07-03] MEDS ORDERED: DEXTROSE 5%-WATER 100 ML IVPB ONE ×3 (01:02→16:13)
[2020-07-03] MEDS ORDERED: MEROPENEM 1 GM VIAL (RESTRICTED TO ID) IVPB ONE ×3 (01:02→16:13)
[2020-07-03] MEDS: MEROPENEM 1 GM in DEXTROSE 5%-WATER 100 ML IVPB SCH ×3 (02:36→18:10)
[2020-07-03] MEDS ORDERED: PT OWN MED DRAWER 7, Y5N ONE ×2 (06:52→19:59)
[2020-07-03 09:06] LABS: BASO % 0.7 % (0-2.0); EOS % 2.1 % (0-4.5); HEMATOCRIT 25.4 % (32.4-45.2); HEMOGLOBIN 8.3 GM/dL (10.7-15.3); LYMPH % 23.6 % (8-40); MCH 26.5 pg (25.7-33.7); MCHC 32.8 g/dl (32.0-36.0); MEAN CELL VOLUME 80.9 fl (80-96); MEAN PLT VOLUME 8.9 fl (7.5-11.1); MONO % 5.9 % (3.8-10.2); NEUT % 67.7 % (42.8-82.8); PLATELET COUNT 471 K/MM3 (134-434); RBC 3.14 M/mm3 (3.60-5.2); WHITE BLOOD COUNT 8.6 K/mm3 (4.0-10.0)
[2020-07-03 09:30] LABS: CALCIUM 8.1 mg/dL (8.5-10.1)
[2020-07-03 09:31] LABS: BLOOD UREA NITROGEN 7.2 mg/dL (7-18)
[2020-07-03 09:32] LABS: BILIRUBIN,TOTAL 0.2 mg/dL (0.2-1); TOT PROT 5.6 g/dl (6.4-8.2)
[2020-07-03 09:34] LABS: CREATININE 0.4 mg/dL (0.55-1.3)
[2020-07-03] MEDS: levETIRAcetam 500 MG TABLET (FP) PO SCH ×2 (11:05→21:13)
[2020-07-03] MEDS: PANTOPRAZOLE SODIUM 40 MG VIAL IVPUSH SCH (11:05)
[2020-07-03] MEDS: BISACODYL 10 MG SUPP.RECT RC SCH (13:59)
[2020-07-03] MEDS: carBAMazepine 100 MG TAB.CHEW PO SCH ×4 (14:02→21:15)
[2020-07-03] MEDS: CALCIUM 500MG/VIT-D 200 UNITS COMBO TABLET (FP) PO SCH ×2 (16:59→21:14)
[2020-07-03] MEDS ORDERED: POTASSIUM CHLORIDE ORAL LIQUID 20 MEQ/15 ML PO ONE (17:55)
[2020-07-03] MEDS: DOCUSATE NA 100 MG/10 ML UNIT-DOSE CUPS PO SCH (21:13)
[2020-07-03] MEDS: LATANOPROST 0.005% OPHTH SOLN 2.5ML BOTTLE OU SCH (21:16)
[2020-07-04] MEDS ORDERED: MEROPENEM 1 GM VIAL (RESTRICTED TO ID) IVPB ONE ×3 (01:34→16:33)
[2020-07-04] MEDS ORDERED: DEXTROSE 5%-WATER 100 ML IVPB ONE ×3 (01:35→16:33)
[2020-07-04] MEDS: MEROPENEM 1 GM in DEXTROSE 5%-WATER 100 ML IVPB SCH ×3 (02:11→17:07)
[2020-07-04] MEDS ORDERED: PT OWN MED DRAWER 7, Y5N ONE (09:29)
[2020-07-04] MEDS: CALCIUM 500MG/VIT-D 200 UNITS COMBO TABLET (FP) PO SCH ×2 (09:36→22:12)
[2020-07-04] MEDS: PANTOPRAZOLE SODIUM 40 MG VIAL IVPUSH SCH (09:36)
[2020-07-04] MEDS: carBAMazepine 100 MG TAB.CHEW PO SCH ×4 (09:37→22:12)
[2020-07-04] MEDS: levETIRAcetam 500 MG TABLET (FP) PO SCH ×2 (09:38→22:12)
[2020-07-04] MEDS: BISACODYL 10 MG SUPP.RECT RC SCH (14:00)
[2020-07-04] MEDS: DOCUSATE NA 100 MG/10 ML UNIT-DOSE CUPS PO SCH (22:12)
[2020-07-04] MEDS: LATANOPROST 0.005% OPHTH SOLN 2.5ML BOTTLE OU SCH (22:13)
[2020-07-05] MEDS ORDERED: DEXTROSE 5%-WATER 100 ML IVPB ONE ×2 (01:12→17:36)
[2020-07-05] MEDS ORDERED: MEROPENEM 1 GM VIAL (RESTRICTED TO ID) IVPB ONE ×3 (01:12→17:36)
[2020-07-05] MEDS: MEROPENEM 1 GM in DEXTROSE 5%-WATER 100 ML IVPB SCH ×3 (01:24→19:20)
[2020-07-05] MEDS: PANTOPRAZOLE SODIUM 40 MG VIAL IVPUSH SCH (09:02)
[2020-07-05] MEDS: levETIRAcetam 500 MG TABLET (FP) PO SCH ×2 (09:05→22:46)
[2020-07-05 09:10] LABS: BASO % 0.5 % (0-2.0); EOS % 3.2 % (0-4.5); HEMATOCRIT 24.7 % (32.4-45.2); HEMOGLOBIN 8.4 GM/dL (10.7-15.3); LYMPH % 23.8 % (8-40); MCH 27.7 pg (25.7-33.7); MCHC 33.9 g/dl (32.0-36.0); MEAN CELL VOLUME 81.9 fl (80-96); MEAN PLT VOLUME 9.2 fl (7.5-11.1); MONO % 5.9 % (3.8-10.2); NEUT % 66.6 % (42.8-82.8); PLATELET COUNT 491 K/MM3 (134-434); RBC 3.01 M/mm3 (3.60-5.2); RDW 15.3 % (11.6-15.6); WHITE BLOOD COUNT 10.5 K/mm3 (4.0-10.0)
[2020-07-05 09:34] LABS: CALCIUM 8.7 mg/dL (8.5-10.1)
[2020-07-05 09:35] LABS: BLOOD UREA NITROGEN 8.5 mg/dL (7-18)
[2020-07-05 09:36] LABS: ALBUMIN 2.1 g/dl (3.4-5.0)
[2020-07-05 09:39] LABS: CREATININE 0.6 mg/dL (0.55-1.3)
[2020-07-05 09:40] LABS: BILIRUBIN,TOTAL 0.4 mg/dL (0.2-1)
[2020-07-05] MEDS: CALCIUM 500MG/VIT-D 200 UNITS COMBO TABLET (FP) PO SCH ×2 (10:14→22:46)
[2020-07-05] MEDS: carBAMazepine 100 MG TAB.CHEW PO SCH ×4 (10:15→22:46)
[2020-07-05] MEDS ORDERED: BISACODYL 10 MG SUPP.RECT RC SCH (10:45)
[2020-07-05] MEDS ORDERED: PT OWN MED DRAWER 7, Y5N ONE (22:23)
[2020-07-05] MEDS: DOCUSATE NA 100 MG/10 ML UNIT-DOSE CUPS PO SCH (22:46)
[2020-07-05] MEDS: LATANOPROST 0.005% OPHTH SOLN 2.5ML BOTTLE OU SCH (22:47)
[2020-07-06] MEDS ORDERED: DEXTROSE 5%-WATER 100 ML IVPB ONE ×3 (01:20→17:33)
[2020-07-06] MEDS ORDERED: MEROPENEM 1 GM VIAL (RESTRICTED TO ID) IVPB ONE ×3 (01:20→17:33)
[2020-07-06] MEDS: MEROPENEM 1 GM in DEXTROSE 5%-WATER 100 ML IVPB SCH ×3 (01:24→17:56)
[2020-07-06] MEDS ORDERED: PT OWN MED DRAWER 7, Y5N ONE ×2 (09:23→09:50)
[2020-07-06] MEDS: carBAMazepine 100 MG TAB.CHEW PO SCH ×4 (09:47→21:41)
[2020-07-06] MEDS: PANTOPRAZOLE SODIUM 40 MG VIAL IVPUSH SCH (09:47)
[2020-07-06] MEDS: levETIRAcetam 500 MG TABLET (FP) PO SCH ×2 (09:47→21:40)
[2020-07-06] MEDS: CALCIUM 500MG/VIT-D 200 UNITS COMBO TABLET (FP) PO SCH ×2 (09:47→21:41)
[2020-07-06 14:52] VITALS: BMI 24.0
[2020-07-06] MEDS: DOCUSATE NA 100 MG/10 ML UNIT-DOSE CUPS PO SCH (21:41)
[2020-07-06] MEDS: LATANOPROST 0.005% OPHTH SOLN 2.5ML BOTTLE OU SCH (21:41)
[2020-07-07] MEDS ORDERED: MEROPENEM 1 GM VIAL (RESTRICTED TO ID) IVPB ONE ×3 (01:20→17:34)
[2020-07-07] MEDS ORDERED: DEXTROSE 5%-WATER 100 ML IVPB ONE ×3 (01:20→17:35)
[2020-07-07] MEDS: MEROPENEM 1 GM in DEXTROSE 5%-WATER 100 ML IVPB SCH ×3 (01:23→17:38)
[2020-07-07] MEDS ORDERED: PT OWN MED DRAWER 7, Y5N ONE ×3 (10:07→21:38)
[2020-07-07] MEDS: CALCIUM 500MG/VIT-D 200 UNITS COMBO TABLET (FP) PO SCH ×2 (10:15→22:12)
[2020-07-07] MEDS: levETIRAcetam 500 MG TABLET (FP) PO SCH ×2 (10:15→21:42)
[2020-07-07] MEDS: carBAMazepine 100 MG TAB.CHEW PO SCH ×4 (10:16→22:12)
[2020-07-07] MEDS: PANTOPRAZOLE SODIUM 40 MG VIAL IVPUSH SCH (11:02)
[2020-07-07 12:28] LABS: BASO % 0.7 % (0-2.0); EOS % 3.6 % (0-4.5); HEMATOCRIT 27.3 % (32.4-45.2); HEMOGLOBIN 8.9 GM/dL (10.7-15.3); LYMPH % 21.3 % (8-40); MCH 26.7 pg (25.7-33.7); MCHC 32.5 g/dl (32.0-36.0); MEAN PLT VOLUME 8.6 fl (7.5-11.1); MONO % 5.4 % (3.8-10.2); PLATELET COUNT 508 K/MM3 (134-434); RBC 3.33 M/mm3 (3.60-5.2); RDW 15.9 % (11.6-15.6); WHITE BLOOD COUNT 8.3 K/mm3 (4.0-10.0)
[2020-07-07 12:58] LABS: BLOOD UREA NITROGEN 7.5 mg/dL (7-18); CALCIUM 8.4 mg/dL (8.5-10.1)
[2020-07-07 13:01] LABS: CREATININE 0.5 mg/dL (0.55-1.3)
[2020-07-07] MEDS: LATANOPROST 0.005% OPHTH SOLN 2.5ML BOTTLE OU SCH (21:42)
[2020-07-07] MEDS: DOCUSATE NA 100 MG/10 ML UNIT-DOSE CUPS PO SCH (21:42)
[2020-07-08 03:42] VITALS: BP 132/58; PULSE 83; TEMP 98.7
== END 2020-07-08 01:23 | DRG 871 ==
LOC: JER 22:13 → JERBED 06-29 00:49 → J5S 06-29 09:42
PROVIDERS: ADMIT Hospitalist; ATTEND Internal Medicine
PROC: 0W9J30Z Drainage of Pelvic Cavity with Drainage Device, Percutaneous Approach (ICD-10-PCS; principal; 2020-06-29)
PROC: 02HV33Z Insertion of Infusion Device into Superior Vena Cava, Percutaneous Approach (ICD-10-PCS; 2020-07-07)
DX: A41.9 Sepsis, unspecified organism (principal); K65.1 Peritoneal abscess; N30.00 Acute cystitis without hematuria; E87.0 Hyperosmolality and hypernatremia; E87.2 Acidosis; E87.6 Hypokalemia; G40.909 Epilepsy, unspecified, not intractable, without status epilepticus; R13.10 Dysphagia, unspecified; F79 Unspecified intellectual disabilities; K56.41 Fecal impaction; D72.829 Elevated white blood cell count, unspecified
CPT/HCPCS: 36415; 36569; 49407; 71045-TC-FY; 74177-TC; 74178-TC; 80048; 80053; 80156; 80177; 81003; 82272; 82607; 82728; 82746; 82784; 83516; 83540; 83550; 83605; 83615; 83690; 83735; 84155; 84165; 84436; 84443; 84484; 85025; 85027; 85045; 85610; 85730; 86140; 86334; 87040; 87070; 87075; 87076; 87086; 87102; 87116; 87186; 87205; 87206; 87210; 87804; 88108; 88305-TC; 93005; 93010; 95816; 97161-GP; 99285-25; C1729; C1769; C9803; G0463; J0131; Q9967; U0003; U0005

== ENCOUNTER 2020-09-04 21:24 | Inpatient (IN) | payer OTHER ==
[2020-09-04] MEDS ORDERED: LACTATED RINGERS SOLUTION 1000 ML INFUS.BAG IV ONE (21:46)
[2020-09-04] MEDS ORDERED: ACETAMINOPHEN 1000 MG/100 ML VIAL (NON FORMULARY) IVPB ONE (21:46)
[2020-09-04] MEDS ORDERED: ACETAMINOPHEN INJECTION 100 ML IVPB ONE (22:11)
[2020-09-04 22:25] LABS: BASO % 0.1 % (0-2.0); HEMATOCRIT 36.4 % (32.4-45.2); HEMOGLOBIN 11.5 GM/dL (10.7-15.3); LYMPH % 3.5 % (8-40); MCH 24.8 pg (25.7-33.7); MCHC 31.6 g/dl (32.0-36.0); MEAN CELL VOLUME 78.6 fl (80-96); MEAN PLT VOLUME 10.1 fl (7.5-11.1); MONO % 5.5 % (3.8-10.2); NEUT % 90.9 % (42.8-82.8); PLATELET COUNT 389 10^3/uL (134-434); RBC 4.64 M/mm3 (3.60-5.2); WHITE BLOOD COUNT 17.5 K/mm3 (4.0-10.0)
[2020-09-04 22:27] VITALS: BMI 21.9
[2020-09-04] MEDS ORDERED: VANCOMYCIN 1 GM in D5W (PRE-DOCKED) 1,000 MG/250 ML IVPB ONE (22:35)
[2020-09-04] MEDS ORDERED: PIPERACILLIN/TAZOB 4.5 GM 4.5 GM in DEXTROSE 5%-WATER 100 ML IVPB ONE (22:36)
[2020-09-04] MEDS ORDERED: VANCOMYCIN 1 GRAM (PRE-DOCKED) 1,000 MG/250 ML BAG IVPB ONE (22:38)
[2020-09-04] MEDS ORDERED: PIPERACILLIN/TAZOB 4.5 GM 4.5 GM/100 ML BAG IVPB ONE (22:38)
[2020-09-04 22:45] LABS: LACTIC ACID 6.3 mmol/L (0.4-2.0)
[2020-09-04 23:14] LABS: ANISOCYTOSIS 1+; PLATELET ESTIMATE ADEQUATE
[2020-09-04 23:34] LABS: CHLORIDE 112 mmol/L (98-107); SODIUM 145 mmol/L (136-145)
[2020-09-04 23:36] LABS: CALCIUM 8.7 mg/dL (8.5-10.1)
[2020-09-04 23:37] LABS: ALBUMIN 2.7 g/dl (3.4-5.0); ANION GAP 14 MMOL/L (8-16); BLOOD UREA NITROGEN 24.8 mg/dL (7-18); CO2 19 mmol/L (21-32); GLUCOSE,RANDOM 279 mg/dL (74-106)
[2020-09-04 23:40] LABS: CREATININE 1.3 mg/dL (0.55-1.3); SGOT/AST 10 U/L (15-37); SGPT/ALT 18 U/L (13-61)
[2020-09-04 23:42] LABS: BILIRUBIN,TOTAL 0.6 mg/dL (0.2-1); TOT PROT 7.7 g/dl (6.4-8.2)
[2020-09-04 23:43] LABS: ALK PHOS 98 U/L (45-117)
[2020-09-05 00:04] LABS: EPI CELLS 33 /uL (0-25.1); HYALINE CASTS 9 /uL (0-3.1); URINE APPEARANCE CLOUDY; URINE BILIRUBIN 1+ (NEGATIVE); URINE COLOR DK YELLOW; URINE GLUCOSE (UA) TRACE (NEGATIVE); URINE KETONE TRACE (NEGATIVE); URINE LEUK ESTERASE NEGATIVE (NEGATIVE); URINE NITRITE POSITIVE (NEGATIVE); URINE PROTEIN 2+ (NEGATIVE); URINE WBC 24 /uL (0-25.8)
[2020-09-05] MEDS ORDERED: PANTOPRAZOLE SODIUM 40 MG VIAL IVPUSH ONE (00:05)
[2020-09-05] MEDS ORDERED: PANTOPRAZOLE SODIUM 40 MG VIAL ONE (00:16)
[2020-09-05 01:52] LABS: INR 1.71 (0.83-1.09); PROTHROMBIN TIME (PATIENT) 20.4 SEC (9.7-13.0)
[2020-09-05 01:54] LABS: ACTIVATED PTT 29.2 SECONDS (25.2-36.5)
[2020-09-05 02:14] LABS: LACTIC ACID 8.1 mmol/L (0.4-2.0)
[2020-09-05] MEDS ORDERED: LACTATED RINGERS SOLUTION 1000 ML INFUS.BAG IV ONE ×2 (02:16→02:17)
[2020-09-05 02:41] LABS: VENOUS BASE EXCESS -4.7 mmol/L (-2-2); VENOUS O2 SATURATION 88.8 % (70-80); VENOUS PCO2 37.9 mmHg (38-52); VENOUS PH 7.35 (7.310-7.410)
[2020-09-05 06:21] LABS: LACTIC ACID 4.7 mmol/L (0.4-2.0)
[2020-09-05] MEDS ORDERED: PIPERACILLIN/TAZOB 3.375 GM 3.375 GM in DEXTROSE 5%-WATER - 50 ML IVPB ONE (07:19)
[2020-09-05] MEDS ORDERED: PIPERACILLIN/TAZOB 3.375 GM 3.375 GM/50 ML BAG IVPB ONE (07:55)
[2020-09-05 08:14] LABS: BASO % 0.1 % (0-2.0); HEMATOCRIT 31.2 % (32.4-45.2); HEMOGLOBIN 9.6 GM/dL (10.7-15.3); LYMPH % 5.9 % (8-40); MCH 24.6 pg (25.7-33.7); MCHC 30.8 g/dl (32.0-36.0); MEAN CELL VOLUME 79.8 fl (80-96); MEAN PLT VOLUME 10.3 fl (7.5-11.1); PLATELET COUNT 305 10^3/uL (134-434); RBC 3.92 M/mm3 (3.60-5.2); RDW 15.7 % (11.6-15.6); WHITE BLOOD COUNT 12.8 K/mm3 (4.0-10.0)
[2020-09-05 08:16] LABS: CALCIUM 8.1 mg/dL (8.5-10.1)
[2020-09-05 08:17] LABS: BLOOD UREA NITROGEN 25.2 mg/dL (7-18)
[2020-09-05 08:20] LABS: CREATININE 0.8 mg/dL (0.55-1.3)
[2020-09-05 08:21] LABS: TOT PROT 5.9 g/dl (6.4-8.2)
[2020-09-05 08:25] LABS: BILIRUBIN,TOTAL 0.4 mg/dL (0.2-1)
[2020-09-05 08:35] LABS: ALBUMIN 2.1 g/dl (3.4-5.0); LACTIC ACID 4.2 mmol/L (0.4-2.0)
[2020-09-05] MEDS ORDERED: MORPHINE SULFATE 2 MG/ML VIAL ONE (09:37)
[2020-09-05] MEDS ORDERED: MORPHINE SULFATE 2 MG/ML VIAL IVPUSH ONE (09:39)
[2020-09-05] MEDS ORDERED: MORPHINE SULFATE 2 MG/ML VIAL IVPUSH PRN (09:39)
[2020-09-05] MEDS ORDERED: ACETAMINOPHEN 1000 MG/100 ML VIAL (NON FORMULARY) IVPB PRN (09:39)
[2020-09-05] MEDS ORDERED: PROPOFOL 20 ML ONE (10:40)
[2020-09-05] MEDS ORDERED: DEXAMETHASONE SOD PHOSPHATE 4 MG/1 ML VIAL ONE (10:40)
[2020-09-05] MEDS ORDERED: LIDOCAINE HCL/PF 2% SDV 5ML VIAL ONE (10:40)
[2020-09-05] MEDS ORDERED: fentaNYL CITRATE 250 MCG/5 ML VIAL ONE (10:40)
[2020-09-05] MEDS ORDERED: SUCCINYLCHOLINE CHLORIDE 200 MG/10 ML SYRINGE ONE (10:41)
[2020-09-05] MEDS ORDERED: ROCURONIUM BROMIDE 50 MG/5 ML SYRINGE ONE (10:41)
[2020-09-05] MEDS: SODIUM CHLORIDE 1,000 ML IV SCH (10:44)
[2020-09-05] MEDS ORDERED: ETOMIDATE 20 MG/10 ML AMPUL IVPUSH ONE (11:08)
[2020-09-05] MEDS ORDERED: DEXMEDETOMIDINE HCL 200 MCG/2 ML IVPB ONE (11:12)
[2020-09-05] MEDS ORDERED: ACETAMINOPHEN INJECTION 100 ML IVPB ONE (11:13)
[2020-09-05] MEDS ORDERED: KETAMINE HCL 200 MG/20 ML VIAL ONE (11:13)
[2020-09-05 12:18] LABS: ANISOCYTOSIS 0; MACROCYTOSIS 0; PLATELET ESTIMATE NORMAL
[2020-09-05] MEDS ORDERED: NEOSTIGMINE METHYLSULFATE 0.5 MG/ML - 10 ML MDV ONE (13:19)
[2020-09-05] MEDS ORDERED: DESFLURANE GAS 240 ML BOTTLE IH ONE (13:24)
[2020-09-05] MEDS ORDERED: SEVOFLURANE 250 ML BTL ONE (13:24)
[2020-09-05] MEDS ORDERED: ALBUMIN HUMAN 25% 100 ML VIAL IVPB ONE (15:00)
[2020-09-05] MEDS ORDERED: BUPIVACAINE LIPOSOME/PF (EXPAREL) 266 MG/20 ML VIAL ONE (15:01)
[2020-09-05] MEDS ORDERED: BUPIVACAINE HCL/PF 0.25% (2.5MG/ML) 10 ML VIAL ONE (15:02)
[2020-09-05] MEDS ORDERED: PHENYLEPHRINE HCL 10 MG/1 ML SINGLE DOSE VIAL ONE (16:03)
[2020-09-05] MEDS: LACTATED RINGERS SOLUTION 1,000 ML/1,000 ML INFUS.BAG IV SCH (18:45)
[2020-09-05] MEDS ORDERED: VASOPRESSIN 40 UNITS in SODIUM CHLORIDE 98 ML IVPB SCH (21:30)
[2020-09-05] MEDS ORDERED: PIPERACILLIN/TAZOBACTAM 3.375 GM VIAL IVPB ONE (21:50)
[2020-09-05] MEDS ORDERED: DEXTROSE 5%-WATER - 50 ML IVPB ONE (21:51)
[2020-09-05] MEDS: HEPARIN NA (PORCINE) 5,000 UNITS/ML 1ML VIAL SQ SCH (22:12)
[2020-09-05] MEDS: levETIRAcetam 500 MG/5 ML INJECTION VIAL IVPB SCH (22:12)
[2020-09-05] MEDS: VASOPRESSIN 40 UNITS in SODIUM CHLORIDE 98 ML IVPB SCH (22:12)
[2020-09-05] MEDS: PIPERACILLIN/TAZOB 3.375 GM 3.375 GM in DEXTROSE 5%-WATER - 50 ML IVPB SCH (22:13)
[2020-09-05] MEDS: ACETAMINOPHEN 1000 MG/100 ML VIAL (NON FORMULARY) IVPB SCH (22:15)
[2020-09-05] MEDS: LATANOPROST 0.005% OPHTH SOLN 2.5ML BOTTLE OU SCH (23:20)
[2020-09-06] MEDS: ACETAMINOPHEN 1000 MG/100 ML VIAL (NON FORMULARY) IVPB SCH ×3 (05:00→16:26)
[2020-09-06] MEDS: HEPARIN NA (PORCINE) 5,000 UNITS/ML 1ML VIAL SQ SCH ×2 (05:52→21:48)
[2020-09-06 06:53] LABS: HEMATOCRIT 22.6 % (32.4-45.2); HEMOGLOBIN 7.3 GM/dL (10.7-15.3); MCH 25.1 pg (25.7-33.7); MCHC 32.4 g/dl (32.0-36.0); MEAN CELL VOLUME 77.4 fl (80-96); PLATELET COUNT 204 10^3/uL (134-434); RBC 2.92 M/mm3 (3.60-5.2); RDW 16.3 % (11.6-15.6); WHITE BLOOD COUNT 8.5 K/mm3 (4.0-10.0)
[2020-09-06 06:54] LABS: MEAN PLT VOLUME 10.9 fl (7.5-11.1)
[2020-09-06 07:13] LABS: ALBUMIN 2.1 g/dl (3.4-5.0); CALCIUM 7.8 mg/dL (8.5-10.1)
[2020-09-06 07:14] LABS: BLOOD UREA NITROGEN 28.9 mg/dL (7-18)
[2020-09-06 07:17] LABS: BILIRUBIN,TOTAL 0.5 mg/dL (0.2-1); CREATININE 0.6 mg/dL (0.55-1.3); PHOSPHOROUS 2.6 mg/dL (2.5-4.9); TOT PROT 4.7 g/dl (6.4-8.2)
[2020-09-06] MEDS ORDERED: PIPERACILLIN/TAZOBACTAM 3.375 GM VIAL IVPB ONE ×2 (09:28→21:36)
[2020-09-06] MEDS ORDERED: DEXTROSE 5%-WATER - 50 ML IVPB ONE ×2 (09:28→21:36)
[2020-09-06] MEDS: levETIRAcetam 500 MG/5 ML INJECTION VIAL IVPB SCH ×2 (09:40→21:49)
[2020-09-06] MEDS: PANTOPRAZOLE SODIUM 40 MG VIAL IVPUSH SCH (09:54)
[2020-09-06] MEDS: LACTATED RINGERS SOLUTION 1,000 ML/1,000 ML INFUS.BAG IV SCH ×2 (09:55→11:31)
[2020-09-06] MEDS: SODIUM CHLORIDE 1,000 ML IV SCH (09:55)
[2020-09-06] MEDS: PIPERACILLIN/TAZOB 3.375 GM 3.375 GM in DEXTROSE 5%-WATER - 50 ML IVPB SCH ×3 (09:55→21:47)
[2020-09-06 12:55] LABS: BASO % 0.5 % (0-2.0); EOS % 0.1 % (0-4.5); HEMATOCRIT 22.9 % (32.4-45.2); HEMOGLOBIN 7.3 GM/dL (10.7-15.3); LYMPH % 14.3 % (8-40); MCH 24.7 pg (25.7-33.7); MEAN CELL VOLUME 77.3 fl (80-96); MEAN PLT VOLUME 10.1 fl (7.5-11.1); MONO % 2.1 % (3.8-10.2); PLATELET COUNT 198 10^3/uL (134-434); RBC 2.96 M/mm3 (3.60-5.2); RDW 16.1 % (11.6-15.6); WHITE BLOOD COUNT 7.1 K/mm3 (4.0-10.0)
[2020-09-06] MEDS ORDERED: PT OWN MED DRAWER 7, Y5N ONE (21:36)
[2020-09-06] MEDS: LATANOPROST 0.005% OPHTH SOLN 2.5ML BOTTLE OU SCH (21:48)
[2020-09-06] MEDS: VASOPRESSIN 40 UNITS in SODIUM CHLORIDE 98 ML IVPB SCH (21:48)
[2020-09-07] MEDS ORDERED: PIPERACILLIN/TAZOBACTAM 3.375 GM VIAL IVPB ONE ×3 (02:04→17:40)
[2020-09-07] MEDS ORDERED: DEXTROSE 5%-WATER - 50 ML IVPB ONE ×3 (02:04→17:40)
[2020-09-07] MEDS: PIPERACILLIN/TAZOB 3.375 GM 3.375 GM in DEXTROSE 5%-WATER - 50 ML IVPB SCH ×3 (03:12→17:50)
[2020-09-07 07:02] LABS: BASO % 0.2 % (0-2.0); EOS % 0.5 % (0-4.5); HEMATOCRIT 23.8 % (32.4-45.2); HEMOGLOBIN 7.6 GM/dL (10.7-15.3); LYMPH % 15.6 % (8-40); MCH 24.6 pg (25.7-33.7); MEAN CELL VOLUME 76.7 fl (80-96); MEAN PLT VOLUME 10.3 fl (7.5-11.1); MONO % 3.1 % (3.8-10.2); NEUT % 80.6 % (42.8-82.8); PLATELET COUNT 245 10^3/uL (134-434); RDW 16.5 % (11.6-15.6); WHITE BLOOD COUNT 6.1 K/mm3 (4.0-10.0)
[2020-09-07 07:15] LABS: CALCIUM 7.8 mg/dL (8.5-10.1)
[2020-09-07 07:16] LABS: BLOOD UREA NITROGEN 20.6 mg/dL (7-18); MAGNESIUM 2.1 mg/dL (1.8-2.4)
[2020-09-07 07:19] LABS: CREATININE 0.3 mg/dL (0.55-1.3); PHOSPHOROUS 3.2 mg/dL (2.5-4.9)
[2020-09-07 07:20] LABS: BILIRUBIN,TOTAL 0.8 mg/dL (0.2-1); TOT PROT 4.6 g/dl (6.4-8.2)
[2020-09-07 09:08] LABS: ANISOCYTOSIS 1+; MACROCYTOSIS 0; OVALOCYTE 1+; PLATELET ESTIMATE NORMAL; TARGET CELLS 2+; TEAR DROP CELLS 1+; TOXIC GRANULATION 2+
[2020-09-07] MEDS: levETIRAcetam 500 MG/5 ML INJECTION VIAL IVPB SCH ×2 (09:57→21:21)
[2020-09-07] MEDS: HEPARIN NA (PORCINE) 5,000 UNITS/ML 1ML VIAL SQ SCH ×2 (09:59→21:21)
[2020-09-07] MEDS: PANTOPRAZOLE SODIUM 40 MG VIAL IVPUSH SCH (10:01)
[2020-09-07] MEDS ORDERED: LACTATED RINGERS SOLUTION 1000 ML INFUS.BAG IV ONE (10:38)
[2020-09-07] MEDS: LACTATED RINGERS SOLUTION 1,000 ML/1,000 ML INFUS.BAG IV SCH ×2 (12:07→17:50)
[2020-09-07] MEDS: MORPHINE SULFATE 2 MG/ML VIAL IVPUSH PRN (17:49)
[2020-09-07] MEDS: LATANOPROST 0.005% OPHTH SOLN 2.5ML BOTTLE OU SCH (22:04)
[2020-09-08] MEDS ORDERED: DEXTROSE 5%-WATER - 50 ML IVPB ONE ×3 (01:02→17:21)
[2020-09-08] MEDS ORDERED: PIPERACILLIN/TAZOBACTAM 3.375 GM VIAL IVPB ONE ×3 (01:02→17:20)
[2020-09-08] MEDS: MORPHINE SULFATE 2 MG/ML VIAL IVPUSH PRN (01:11)
[2020-09-08] MEDS: PIPERACILLIN/TAZOB 3.375 GM 3.375 GM in DEXTROSE 5%-WATER - 50 ML IVPB SCH ×3 (01:13→17:37)
[2020-09-08] MEDS ORDERED: ACETAMINOPHEN 1000 MG/100 ML VIAL (NON FORMULARY) IVPB ONE (01:33)
[2020-09-08] MEDS: HEPARIN NA (PORCINE) 5,000 UNITS/ML 1ML VIAL SQ SCH ×2 (11:19→22:10)
[2020-09-08] MEDS: PANTOPRAZOLE SODIUM 40 MG VIAL IVPUSH SCH (11:19)
[2020-09-08] MEDS: levETIRAcetam 500 MG/5 ML INJECTION VIAL IVPB SCH ×2 (11:19→22:10)
[2020-09-08] MEDS: LACTATED RINGERS SOLUTION 1,000 ML/1,000 ML INFUS.BAG IV SCH (17:38)
[2020-09-08] MEDS: LATANOPROST 0.005% OPHTH SOLN 2.5ML BOTTLE OU SCH (22:13)
[2020-09-09] MEDS ORDERED: PIPERACILLIN/TAZOBACTAM 3.375 GM VIAL IVPB ONE ×3 (01:13→16:51)
[2020-09-09] MEDS ORDERED: DEXTROSE 5%-WATER - 50 ML IVPB ONE ×3 (01:14→16:51)
[2020-09-09] MEDS: PIPERACILLIN/TAZOB 3.375 GM 3.375 GM in DEXTROSE 5%-WATER - 50 ML IVPB SCH ×3 (01:17→17:01)
[2020-09-09] MEDS: levETIRAcetam 500 MG/5 ML INJECTION VIAL IVPB SCH (09:18)
[2020-09-09] MEDS: PANTOPRAZOLE SODIUM 40 MG VIAL IVPUSH SCH (09:18)
[2020-09-09] MEDS: HEPARIN NA (PORCINE) 5,000 UNITS/ML 1ML VIAL SQ SCH ×2 (09:18→21:02)
[2020-09-09] MEDS: LACTATED RINGERS SOLUTION 1,000 ML/1,000 ML INFUS.BAG IV SCH (15:51)
[2020-09-09] MEDS: AMINO ACIDS/PROTEIN HYDROLYS 30 ML LIQUID.PKT PO SCH (16:55)
[2020-09-09] MEDS: levETIRAcetam 500 MG/5 ML ORAL SOLUTION (UNIT-DOSE CUPS) PO SCH (21:02)
[2020-09-09] MEDS: LATANOPROST 0.005% OPHTH SOLN 2.5ML BOTTLE OU SCH (21:03)
[2020-09-10] MEDS ORDERED: PIPERACILLIN/TAZOBACTAM 3.375 GM VIAL IVPB ONE ×2 (02:24→09:23)
[2020-09-10] MEDS ORDERED: DEXTROSE 5%-WATER - 50 ML IVPB ONE ×2 (02:24→09:23)
[2020-09-10] MEDS: PIPERACILLIN/TAZOB 3.375 GM 3.375 GM in DEXTROSE 5%-WATER - 50 ML IVPB SCH ×2 (02:27→09:33)
[2020-09-10] MEDS ORDERED: PT OWN MED DRAWER 7, Y5N ONE (09:22)
[2020-09-10] MEDS: levETIRAcetam 500 MG/5 ML ORAL SOLUTION (UNIT-DOSE CUPS) PO SCH ×2 (09:34→21:48)
[2020-09-10] MEDS: AMINO ACIDS/PROTEIN HYDROLYS 30 ML LIQUID.PKT PO SCH ×2 (09:34→17:02)
[2020-09-10] MEDS: PANTOPRAZOLE 40 MG TABLET PO SCH (09:35)
[2020-09-10] MEDS: HEPARIN NA (PORCINE) 5,000 UNITS/ML 1ML VIAL SQ SCH ×2 (09:35→21:48)
[2020-09-10] MEDS: LACTATED RINGERS SOLUTION 1,000 ML/1,000 ML INFUS.BAG IV SCH (17:01)
[2020-09-10] MEDS: LATANOPROST 0.005% OPHTH SOLN 2.5ML BOTTLE OU SCH (21:48)
[2020-09-11] MEDS: AMINO ACIDS/PROTEIN HYDROLYS 30 ML LIQUID.PKT PO SCH ×2 (08:41→18:05)
[2020-09-11 09:54] LABS: BASO % 0.1 % (0-2.0); EOS % 0.2 % (0-4.5); HEMATOCRIT 17.4 % (32.4-45.2); LYMPH % 12.3 % (8-40); MCH 24.8 pg (25.7-33.7); MCHC 32.7 g/dl (32.0-36.0); MEAN PLT VOLUME 9.5 fl (7.5-11.1); NEUT % 82.4 % (42.8-82.8); PLATELET COUNT 332 10^3/uL (134-434); RBC 2.29 M/mm3 (3.60-5.2); RDW 16.6 % (11.6-15.6); WHITE BLOOD COUNT 10.7 K/mm3 (4.0-10.0)
[2020-09-11 10:09] LABS: CHLORIDE 107 mmol/L (98-107); SODIUM 148 mmol/L (136-145)
[2020-09-11 10:12] LABS: HEMOGLOBIN 5.7 GM/dL (10.7-15.3)
[2020-09-11 10:19] LABS: ALBUMIN 1.8 g/dl (3.4-5.0); CALCIUM 7.3 mg/dL (8.5-10.1)
[2020-09-11 10:20] LABS: CO2 33 mmol/L (21-32); GLUCOSE,RANDOM 132 mg/dL (74-106)
[2020-09-11 10:23] LABS: CREATININE 0.3 mg/dL (0.55-1.3); SGOT/AST 48 U/L (15-37)
[2020-09-11 10:24] LABS: BILIRUBIN,TOTAL 0.6 mg/dL (0.2-1)
[2020-09-11 10:25] LABS: TOT PROT 5.3 g/dl (6.4-8.2)
[2020-09-11 10:26] LABS: ALK PHOS 86 U/L (45-117)
[2020-09-11 10:32] LABS: SGPT/ALT 47 U/L (13-61)
[2020-09-11] MEDS: HEPARIN NA (PORCINE) 5,000 UNITS/ML 1ML VIAL SQ SCH (10:43)
[2020-09-11 11:19] LABS: ANION GAP 8 MMOL/L (8-16); BLOOD UREA NITROGEN 2.8 mg/dL (7-18)
[2020-09-11] MEDS: levETIRAcetam 500 MG/5 ML ORAL SOLUTION (UNIT-DOSE CUPS) PO SCH (11:20)
[2020-09-11] MEDS: PANTOPRAZOLE 40 MG TABLET PO SCH (11:20)
[2020-09-11] MEDS ORDERED: ACETAMINOPHEN 1000 MG/100 ML VIAL (NON FORMULARY) IVPB PRN (11:24)
[2020-09-11] MEDS: PANTOPRAZOLE SODIUM 40 MG VIAL IVPUSH SCH (12:34)
[2020-09-11] MEDS: levETIRAcetam 500 MG/5 ML INJECTION VIAL IVPB SCH ×2 (12:34→21:55)
[2020-09-11] MEDS: KCL 10 MEQ IVPB 10 MEQ/100 ML INFUS.BAG IVPB SCH ×6 (12:34→22:56)
[2020-09-11 17:21] LABS: CHLORIDE 105 mmol/L (98-107); SODIUM 144 mmol/L (136-145)
[2020-09-11 17:23] LABS: BLOOD UREA NITROGEN 3.9 mg/dL (7-18); CO2 32 mmol/L (21-32); GLUCOSE,RANDOM 185 mg/dL (74-106)
[2020-09-11 17:26] LABS: CREATININE 0.3 mg/dL (0.55-1.3)
[2020-09-11 17:29] LABS: ANION GAP 6 MMOL/L (8-16)
[2020-09-11] MEDS ORDERED: MEROPENEM 1 GM VIAL (RESTRICTED TO ID) IVPB ONE (17:45)
[2020-09-11] MEDS ORDERED: DEXTROSE 5%-WATER 100 ML IVPB ONE (17:45)
[2020-09-11] MEDS ORDERED: POTASSIUM CHLORIDE TABS 20 MEQ TABLET.ER (FP) PO SCH (18:00)
[2020-09-11] MEDS: MEROPENEM 1 GM in DEXTROSE 5%-WATER 100 ML IVPB SCH (18:04)
[2020-09-11 20:41] LABS: HEMATOCRIT 24.5 % (32.4-45.2); HEMOGLOBIN 8.2 GM/dL (10.7-15.3); MCH 26.2 pg (25.7-33.7); MCHC 33.3 g/dl (32.0-36.0); MEAN CELL VOLUME 78.7 fl (80-96); MEAN PLT VOLUME 9.6 fl (7.5-11.1); PLATELET COUNT 308 10^3/uL (134-434); RBC 3.11 M/mm3 (3.60-5.2); RDW 17.1 % (11.6-15.6); WHITE BLOOD COUNT 11.2 K/mm3 (4.0-10.0)
[2020-09-11] MEDS: LATANOPROST 0.005% OPHTH SOLN 2.5ML BOTTLE OU SCH (21:54)
[2020-09-12] MEDS ORDERED: MEROPENEM 1 GM VIAL (RESTRICTED TO ID) IVPB ONE ×3 (02:47→17:24)
[2020-09-12] MEDS ORDERED: DEXTROSE 5%-WATER 100 ML IVPB ONE ×3 (02:47→17:24)
[2020-09-12] MEDS: MEROPENEM 1 GM in DEXTROSE 5%-WATER 100 ML IVPB SCH ×3 (02:51→17:52)
[2020-09-12 07:45] LABS: HEMOGLOBIN 10.1 GM/dL (10.7-15.3); MCH 27.1 pg (25.7-33.7); MCHC 34.7 g/dl (32.0-36.0); MEAN CELL VOLUME 78.1 fl (80-96); MEAN PLT VOLUME 9.7 fl (7.5-11.1); PLATELET COUNT 316 10^3/uL (134-434); RBC 3.72 M/mm3 (3.60-5.2); WHITE BLOOD COUNT 16.3 K/mm3 (4.0-10.0)
[2020-09-12 08:04] LABS: CHLORIDE 102 mmol/L (98-107); SODIUM 143 mmol/L (136-145)
[2020-09-12 08:05] LABS: CALCIUM 7.2 mg/dL (8.5-10.1)
[2020-09-12 08:06] LABS: BLOOD UREA NITROGEN 4.4 mg/dL (7-18); CO2 35 mmol/L (21-32); GLUCOSE,RANDOM 121 mg/dL (74-106)
[2020-09-12 08:09] LABS: CREATININE < 0.2 mg/dL (0.55-1.3)
[2020-09-12 08:46] LABS: ANION GAP 6 MMOL/L (8-16)
[2020-09-12] MEDS: AMINO ACIDS/PROTEIN HYDROLYS 30 ML LIQUID.PKT PO SCH ×2 (08:58→17:52)
[2020-09-12] MEDS: PANTOPRAZOLE SODIUM 40 MG VIAL IVPUSH SCH (09:01)
[2020-09-12] MEDS ORDERED: KCL 10 MEQ IVPB 10 MEQ/100 ML INFUS.BAG IVPB SCH ×2 (09:15→10:15)
[2020-09-12] MEDS ORDERED: POTASSIUM CHLORIDE ORAL LIQUID 20 MEQ/15 ML PO ONE (09:21)
[2020-09-12 10:23] LABS: MAGNESIUM 1.5 mg/dL (1.8-2.4)
[2020-09-12] MEDS: levETIRAcetam 500 MG/5 ML INJECTION VIAL IVPB SCH (10:59)
[2020-09-12] MEDS: KCL 10 MEQ IVPB 10 MEQ/100 ML INFUS.BAG IVPB SCH ×3 (12:05→17:00)
[2020-09-12] MEDS ORDERED: VANCOMYCIN 1 GRAM (PRE-DOCKED) 1,000 MG/250 ML BAG IVPB SCH ×2 (16:00→19:00)
[2020-09-12 16:17] LABS: BLOOD UREA NITROGEN 7.8 mg/dL (7-18); CALCIUM 7.4 mg/dL (8.5-10.1)
[2020-09-12 16:22] LABS: CREATININE 0.4 mg/dL (0.55-1.3)
[2020-09-12] MEDS: ACETAMINOPHEN 1000 MG/100 ML VIAL (NON FORMULARY) IVPB ONE ×2 (20:07→22:52)
[2020-09-12] MEDS: LATANOPROST 0.005% OPHTH SOLN 2.5ML BOTTLE OU SCH (22:53)
[2020-09-12] MEDS ORDERED: levETIRAcetam 500 MG/5 ML ORAL SOLUTION (UNIT-DOSE CUPS) PO ONE (23:51)
[2020-09-13] MEDS: levETIRAcetam 500 MG/5 ML INJECTION VIAL IVPB SCH ×3 (00:11→22:57)
[2020-09-13] MEDS: MEROPENEM 1 GM in DEXTROSE 5%-WATER 100 ML IVPB SCH ×3 (02:53→17:20)
[2020-09-13 07:58] LABS: HEMATOCRIT 30.6 % (32.4-45.2); HEMOGLOBIN 10.2 GM/dL (10.7-15.3); MCH 26.7 pg (25.7-33.7); MCHC 33.5 g/dl (32.0-36.0); MEAN CELL VOLUME 79.7 fl (80-96); MEAN PLT VOLUME 9.6 fl (7.5-11.1); PLATELET COUNT 340 10^3/uL (134-434); RBC 3.83 M/mm3 (3.60-5.2); RDW 16.3 % (11.6-15.6); WHITE BLOOD COUNT 15.1 K/mm3 (4.0-10.0)
[2020-09-13 08:00] LABS: CALCIUM 7.7 mg/dL (8.5-10.1)
[2020-09-13 08:01] LABS: BLOOD UREA NITROGEN 8.6 mg/dL (7-18)
[2020-09-13 08:04] LABS: CREATININE 0.2 mg/dL (0.55-1.3)
[2020-09-13] MEDS ORDERED: MEROPENEM 1 GM VIAL (RESTRICTED TO ID) IVPB ONE ×2 (09:14→16:52)
[2020-09-13] MEDS ORDERED: DEXTROSE 5%-WATER 100 ML IVPB ONE ×2 (09:15→16:52)
[2020-09-13] MEDS: PANTOPRAZOLE SODIUM 40 MG VIAL IVPUSH SCH (09:20)
[2020-09-13] MEDS: AMINO ACIDS/PROTEIN HYDROLYS 30 ML LIQUID.PKT PO SCH ×2 (09:24→17:20)
[2020-09-13] MEDS ORDERED: MAGNESIUM 2GM/50ML STERILE WATER IVPB IVPB ONE (11:30)
[2020-09-13] MEDS: KCL 10 MEQ IVPB 10 MEQ/100 ML INFUS.BAG IVPB SCH ×2 (12:29→13:27)
[2020-09-13] MEDS: HEPARIN NA (PORCINE) 5,000 UNITS/ML 1ML VIAL SQ SCH (22:57)
[2020-09-13] MEDS: LATANOPROST 0.005% OPHTH SOLN 2.5ML BOTTLE OU SCH (22:58)
[2020-09-14] MEDS ORDERED: MEROPENEM 1 GM VIAL (RESTRICTED TO ID) IVPB ONE ×3 (01:28→17:34)
[2020-09-14] MEDS ORDERED: DEXTROSE 5%-WATER 100 ML IVPB ONE ×3 (01:28→17:34)
[2020-09-14] MEDS: MEROPENEM 1 GM in DEXTROSE 5%-WATER 100 ML IVPB SCH ×3 (01:51→17:59)
[2020-09-14 08:02] LABS: CALCIUM 7.7 mg/dL (8.5-10.1)
[2020-09-14 08:03] LABS: ALBUMIN 1.8 g/dl (3.4-5.0); BLOOD UREA NITROGEN 5.4 mg/dL (7-18)
[2020-09-14 08:07] LABS: BILIRUBIN,TOTAL 0.6 mg/dL (0.2-1); TOT PROT 5.3 g/dl (6.4-8.2)
[2020-09-14] MEDS: AMINO ACIDS/PROTEIN HYDROLYS 30 ML LIQUID.PKT PO SCH ×2 (08:10→17:59)
[2020-09-14 08:20] LABS: CREATININE 0.2 mg/dL (0.55-1.3)
[2020-09-14 08:41] LABS: HEMATOCRIT 29.1 % (32.4-45.2); HEMOGLOBIN 9.7 GM/dL (10.7-15.3); MCH 26.6 pg (25.7-33.7); MCHC 33.4 g/dl (32.0-36.0); MEAN CELL VOLUME 79.7 fl (80-96); MEAN PLT VOLUME 9.4 fl (7.5-11.1); PLATELET COUNT 379 10^3/uL (134-434); RBC 3.65 M/mm3 (3.60-5.2); RDW 16.7 % (11.6-15.6); WHITE BLOOD COUNT 14.8 K/mm3 (4.0-10.0)
[2020-09-14] MEDS: KCL 10 MEQ IVPB 10 MEQ/100 ML INFUS.BAG IVPB SCH ×3 (09:01→16:07)
[2020-09-14] MEDS: PANTOPRAZOLE SODIUM 40 MG VIAL IVPUSH SCH (10:55)
[2020-09-14] MEDS: HEPARIN NA (PORCINE) 5,000 UNITS/ML 1ML VIAL SQ SCH ×2 (10:55→21:14)
[2020-09-14] MEDS: levETIRAcetam 500 MG/5 ML INJECTION VIAL IVPB SCH ×2 (10:55→21:16)
[2020-09-14] MEDS ORDERED: KCL 10 MEQ IVPB 10 MEQ/100 ML INFUS.BAG IVPB SCH (12:30)
[2020-09-14] MEDS: LATANOPROST 0.005% OPHTH SOLN 2.5ML BOTTLE OU SCH (21:37)
[2020-09-15] MEDS ORDERED: DEXTROSE 5%-WATER 100 ML IVPB ONE ×3 (01:43→18:23)
[2020-09-15] MEDS ORDERED: MEROPENEM 1 GM VIAL (RESTRICTED TO ID) IVPB ONE ×3 (01:43→18:23)
[2020-09-15] MEDS: MEROPENEM 1 GM in DEXTROSE 5%-WATER 100 ML IVPB SCH ×3 (01:50→18:52)
[2020-09-15] MEDS: KCL 10 MEQ IVPB 10 MEQ/100 ML INFUS.BAG IVPB SCH (07:12)
[2020-09-15] MEDS: AMINO ACIDS/PROTEIN HYDROLYS 30 ML LIQUID.PKT PO SCH ×2 (09:00→16:30)
[2020-09-15 09:03] LABS: BLOOD UREA NITROGEN 3.5 mg/dL (7-18)
[2020-09-15 09:06] LABS: CREATININE 0.2 mg/dL (0.55-1.3)
[2020-09-15] MEDS: HEPARIN NA (PORCINE) 5,000 UNITS/ML 1ML VIAL SQ SCH ×2 (10:05→21:56)
[2020-09-15] MEDS: levETIRAcetam 500 MG/5 ML INJECTION VIAL IVPB SCH ×2 (10:05→21:49)
[2020-09-15] MEDS: PANTOPRAZOLE SODIUM 40 MG VIAL IVPUSH SCH (10:06)
[2020-09-15] MEDS: LATANOPROST 0.005% OPHTH SOLN 2.5ML BOTTLE OU SCH (21:56)
[2020-09-16] MEDS ORDERED: MEROPENEM 1 GM VIAL (RESTRICTED TO ID) IVPB ONE ×3 (01:05→17:33)
[2020-09-16] MEDS ORDERED: DEXTROSE 5%-WATER 100 ML IVPB ONE ×3 (01:06→17:33)
[2020-09-16] MEDS: MEROPENEM 1 GM in DEXTROSE 5%-WATER 100 ML IVPB SCH ×3 (01:08→17:56)
[2020-09-16] MEDS: AMINO ACIDS/PROTEIN HYDROLYS 30 ML LIQUID.PKT PO SCH ×2 (08:28→17:56)
[2020-09-16] MEDS: HEPARIN NA (PORCINE) 5,000 UNITS/ML 1ML VIAL SQ SCH ×2 (09:59→21:53)
[2020-09-16] MEDS: PANTOPRAZOLE SODIUM 40 MG VIAL IVPUSH SCH (09:59)
[2020-09-16] MEDS: levETIRAcetam 500 MG/5 ML INJECTION VIAL IVPB SCH ×2 (09:59→21:54)
[2020-09-16 15:22] LABS: HEMATOCRIT 27.3 % (32.4-45.2); HEMOGLOBIN 8.9 GM/dL (10.7-15.3); MCH 26.4 pg (25.7-33.7); MCHC 32.5 g/dl (32.0-36.0); MEAN CELL VOLUME 81.1 fl (80-96); MEAN PLT VOLUME 9.1 fl (7.5-11.1); PLATELET COUNT 391 10^3/uL (134-434); RBC 3.36 M/mm3 (3.60-5.2); RDW 18.2 % (11.6-15.6); WHITE BLOOD COUNT 11.1 K/mm3 (4.0-10.0)
[2020-09-16 15:42] LABS: ALBUMIN 1.9 g/dl (3.4-5.0)
[2020-09-16 15:43] LABS: BLOOD UREA NITROGEN 12.5 mg/dL (7-18)
[2020-09-16 15:46] LABS: CREATININE 0.4 mg/dL (0.55-1.3)
[2020-09-16 15:47] LABS: BILIRUBIN,TOTAL 0.3 mg/dL (0.2-1); TOT PROT 5.5 g/dl (6.4-8.2)
[2020-09-16] MEDS: LATANOPROST 0.005% OPHTH SOLN 2.5ML BOTTLE OU SCH (21:54)
[2020-09-17] MEDS ORDERED: MEROPENEM 1 GM VIAL (RESTRICTED TO ID) IVPB ONE ×3 (01:57→18:16)
[2020-09-17] MEDS ORDERED: DEXTROSE 5%-WATER 100 ML IVPB ONE ×3 (01:57→18:16)
[2020-09-17] MEDS: MEROPENEM 1 GM in DEXTROSE 5%-WATER 100 ML IVPB SCH ×3 (01:59→18:34)
[2020-09-17 09:22] LABS: HEMATOCRIT 29.7 % (32.4-45.2); HEMOGLOBIN 9.8 GM/dL (10.7-15.3); MCH 26.7 pg (25.7-33.7); MCHC 32.9 g/dl (32.0-36.0); MEAN PLT VOLUME 9.2 fl (7.5-11.1); PLATELET COUNT 419 10^3/uL (134-434); RBC 3.66 M/mm3 (3.60-5.2); RDW 18.9 % (11.6-15.6); WHITE BLOOD COUNT 9.1 K/mm3 (4.0-10.0)
[2020-09-17 09:54] LABS: BLOOD UREA NITROGEN 8.6 mg/dL (7-18)
[2020-09-17 09:55] LABS: CALCIUM 8.7 mg/dL (8.5-10.1)
[2020-09-17 09:59] LABS: CREATININE 0.3 mg/dL (0.55-1.3)
[2020-09-17 10:01] LABS: BILIRUBIN,TOTAL 0.3 mg/dL (0.2-1); TOT PROT 5.7 g/dl (6.4-8.2)
[2020-09-17] MEDS: AMINO ACIDS/PROTEIN HYDROLYS 30 ML LIQUID.PKT PO SCH ×2 (10:45→18:35)
[2020-09-17] MEDS: levETIRAcetam 500 MG/5 ML INJECTION VIAL IVPB SCH ×2 (10:45→21:45)
[2020-09-17] MEDS: PANTOPRAZOLE 40 MG TABLET PO SCH (10:46)
[2020-09-17] MEDS: HEPARIN NA (PORCINE) 5,000 UNITS/ML 1ML VIAL SQ SCH ×2 (10:46→21:46)
[2020-09-17] MEDS: LATANOPROST 0.005% OPHTH SOLN 2.5ML BOTTLE OU SCH (21:46)
[2020-09-18] MEDS ORDERED: MEROPENEM 1 GM VIAL (RESTRICTED TO ID) IVPB ONE ×3 (00:49→16:17)
[2020-09-18] MEDS ORDERED: DEXTROSE 5%-WATER 100 ML IVPB ONE ×3 (00:50→16:17)
[2020-09-18] MEDS: MEROPENEM 1 GM in DEXTROSE 5%-WATER 100 ML IVPB SCH ×3 (01:15→17:01)
[2020-09-18] MEDS: AMINO ACIDS/PROTEIN HYDROLYS 30 ML LIQUID.PKT PO SCH ×2 (08:40→17:02)
[2020-09-18] MEDS: PANTOPRAZOLE 40 MG TABLET PO SCH (10:56)
[2020-09-18] MEDS: HEPARIN NA (PORCINE) 5,000 UNITS/ML 1ML VIAL SQ SCH ×2 (10:56→21:26)
[2020-09-18] MEDS: levETIRAcetam 500 MG/5 ML INJECTION VIAL IVPB SCH ×2 (10:56→21:26)
[2020-09-18] MEDS: LATANOPROST 0.005% OPHTH SOLN 2.5ML BOTTLE OU SCH (21:26)
[2020-09-19] MEDS ORDERED: MEROPENEM 1 GM VIAL (RESTRICTED TO ID) IVPB ONE ×3 (00:55→16:29)
[2020-09-19] MEDS ORDERED: DEXTROSE 5%-WATER 100 ML IVPB ONE ×3 (00:55→16:29)
[2020-09-19] MEDS: MEROPENEM 1 GM in DEXTROSE 5%-WATER 100 ML IVPB SCH ×3 (01:13→17:29)
[2020-09-19] MEDS: levETIRAcetam 500 MG/5 ML INJECTION VIAL IVPB SCH ×2 (09:38→21:14)
[2020-09-19] MEDS: PANTOPRAZOLE 40 MG TABLET PO SCH (09:38)
[2020-09-19] MEDS: HEPARIN NA (PORCINE) 5,000 UNITS/ML 1ML VIAL SQ SCH ×2 (09:38→21:14)
[2020-09-19] MEDS: AMINO ACIDS/PROTEIN HYDROLYS 30 ML LIQUID.PKT PO SCH ×2 (09:38→17:29)
[2020-09-19] MEDS: LATANOPROST 0.005% OPHTH SOLN 2.5ML BOTTLE OU SCH (21:14)
[2020-09-20] MEDS ORDERED: DEXTROSE 5%-WATER 100 ML IVPB ONE ×3 (00:54→17:03)
[2020-09-20] MEDS ORDERED: MEROPENEM 1 GM VIAL (RESTRICTED TO ID) IVPB ONE ×3 (00:54→17:03)
[2020-09-20] MEDS: MEROPENEM 1 GM in DEXTROSE 5%-WATER 100 ML IVPB SCH ×3 (01:05→17:05)
[2020-09-20] MEDS: AMINO ACIDS/PROTEIN HYDROLYS 30 ML LIQUID.PKT PO SCH ×2 (08:29→17:05)
[2020-09-20] MEDS: PANTOPRAZOLE 40 MG TABLET PO SCH (09:47)
[2020-09-20] MEDS: HEPARIN NA (PORCINE) 5,000 UNITS/ML 1ML VIAL SQ SCH ×2 (09:47→22:00)
[2020-09-20] MEDS: levETIRAcetam 500 MG/5 ML INJECTION VIAL IVPB SCH (11:10)
[2020-09-20] MEDS: levETIRAcetam 500 MG TABLET (FP) PO SCH (22:00)
[2020-09-20] MEDS: LATANOPROST 0.005% OPHTH SOLN 2.5ML BOTTLE OU SCH (22:00)
[2020-09-21] MEDS ORDERED: MEROPENEM 1 GM VIAL (RESTRICTED TO ID) IVPB ONE ×2 (01:41→09:40)
[2020-09-21] MEDS ORDERED: DEXTROSE 5%-WATER 100 ML IVPB ONE ×2 (01:41→09:40)
[2020-09-21] MEDS: MEROPENEM 1 GM in DEXTROSE 5%-WATER 100 ML IVPB SCH ×2 (01:43→09:46)
[2020-09-21] MEDS: AMINO ACIDS/PROTEIN HYDROLYS 30 ML LIQUID.PKT PO SCH (08:10)
[2020-09-21] MEDS ORDERED: PT OWN MED DRAWER 7, Y5N ONE (09:40)
[2020-09-21] MEDS: MULTIVIT-MINERALS ORAL LIQUID PO SCH (09:45)
[2020-09-21] MEDS: levETIRAcetam 500 MG TABLET (FP) PO SCH ×2 (09:45→23:02)
[2020-09-21] MEDS: HEPARIN NA (PORCINE) 5,000 UNITS/ML 1ML VIAL SQ SCH ×2 (09:45→23:02)
[2020-09-21] MEDS: PANTOPRAZOLE 40 MG TABLET PO SCH (09:46)
[2020-09-21 13:13] LABS: BASO % 1.2 % (0-2.0); EOS % 2.5 % (0-4.5); HEMATOCRIT 31.3 % (32.4-45.2); HEMOGLOBIN 10.2 GM/dL (10.7-15.3); LYMPH % 18.9 % (8-40); MCH 26.8 pg (25.7-33.7); MCHC 32.7 g/dl (32.0-36.0); MEAN CELL VOLUME 82.1 fl (80-96); MEAN PLT VOLUME 9.1 fl (7.5-11.1); NEUT % 66.4 % (42.8-82.8); PLATELET COUNT 426 10^3/uL (134-434); RBC 3.81 M/mm3 (3.60-5.2); RDW 18.9 % (11.6-15.6); WHITE BLOOD COUNT 7.5 K/mm3 (4.0-10.0)
[2020-09-21 13:37] LABS: CALCIUM 9.1 mg/dL (8.5-10.1)
[2020-09-21 13:38] LABS: BLOOD UREA NITROGEN 12.6 mg/dL (7-18)
[2020-09-21 13:41] LABS: CREATININE 0.5 mg/dL (0.55-1.3)
[2020-09-21 13:43] LABS: BILIRUBIN,TOTAL 0.4 mg/dL (0.2-1)
[2020-09-21 14:01] LABS: ALBUMIN 2.5 g/dl (3.4-5.0)
[2020-09-21] MEDS: LATANOPROST 0.005% OPHTH SOLN 2.5ML BOTTLE OU SCH (23:03)
[2020-09-22 07:42] VITALS: BP 104/51; PULSE 78; TEMP 98.6
[2020-09-22] MEDS: levETIRAcetam 500 MG TABLET (FP) PO SCH (10:01)
[2020-09-22] MEDS: MULTIVIT-MINERALS ORAL LIQUID PO SCH (10:01)
[2020-09-22] MEDS: HEPARIN NA (PORCINE) 5,000 UNITS/ML 1ML VIAL SQ SCH (10:01)
[2020-09-22] MEDS: PANTOPRAZOLE 40 MG TABLET PO SCH (10:01)
[2020-09-22] MEDS: AMINO ACIDS/PROTEIN HYDROLYS 30 ML LIQUID.PKT PO SCH (10:01)
== END 2020-09-22 12:54 | DRG 329 ==
LOC: JER 21:24 → JERBED 09-05 00:21 → JICU 09-05 16:59 → J6S 09-07 16:29
PROVIDERS: ADMIT Internal Medicine; ATTEND Internal Medicine
PROC: 0D1E0Z4 Bypass Large Intestine to Cutaneous, Open Approach (ICD-10-PCS; 2020-09-05)
PROC: 0DTN0ZZ Resection of Sigmoid Colon, Open Approach (ICD-10-PCS; principal; 2020-09-05 11:00)
DX: C18.7 Malignant neoplasm of sigmoid colon (principal); R53.2 Functional quadriplegia; G93.41 Metabolic encephalopathy; K63.1 Perforation of intestine (nontraumatic); G40.909 Epilepsy, unspecified, not intractable, without status epilepticus; I10 Essential (primary) hypertension; R13.10 Dysphagia, unspecified; K59.09 Other constipation; H40.9 Unspecified glaucoma; R41.89 Other symptoms and signs involving cognitive functions and awareness; R62.50 Unspecified lack of expected normal physiological development in childhood; D64.9 Anemia, unspecified
CPT/HCPCS: 36415; 36430; 71045-TC-FY; 71260-TC; 74176-TC; 74177-TC; 80048; 80053; 81003; 82272; 82803; 83605; 83735; 84100; 84484; 85025; 85027; 85610; 85730; 86850; 86900; 86901; 86922; 87040; 87070; 87086; 87186; 87205; 88309-TC; 93005; 93010; 99291; C9803; J0131; J1644; P9058; Q9967; U0003; U0005

== ENCOUNTER 2020-11-29 17:11 | Inpatient (IN) | payer OTHER ==
[2020-11-29 20:20] LABS: BASO % 1.1 % (0-2.0); EOS % 4.1 % (0-4.5); HEMATOCRIT 34.6 % (32.4-45.2); HEMOGLOBIN 11.1 GM/dL (10.7-15.3); LYMPH % 16.1 % (8-40); MCH 26.1 pg (25.7-33.7); MCHC 32.2 g/dl (32.0-36.0); MONO % 5.9 % (3.8-10.2); NEUT % 72.8 % (42.8-82.8); PLATELET COUNT 284 10^3/uL (134-434); RBC 4.27 M/mm3 (3.60-5.2); RDW 15.4 % (11.6-15.6); WHITE BLOOD COUNT 12.6 K/mm3 (4.0-10.0)
[2020-11-29 20:41] LABS: CHLORIDE 102 mmol/L (98-107); SODIUM 138 mmol/L (136-145)
[2020-11-29 20:43] LABS: CALCIUM 8.9 mg/dL (8.5-10.1)
[2020-11-29 20:44] LABS: ALBUMIN 3.3 g/dl (3.4-5.0); ANION GAP 6 MMOL/L (8-16); BLOOD UREA NITROGEN 17.2 mg/dL (7-18); CO2 30 mmol/L (21-32); GLUCOSE,RANDOM 88 mg/dL (74-106)
[2020-11-29 20:47] LABS: CREATININE 0.7 mg/dL (0.55-1.3); SGOT/AST 8 U/L (15-37); SGPT/ALT 16 U/L (13-61)
[2020-11-29 20:49] LABS: BILIRUBIN,TOTAL 0.2 mg/dL (0.2-1); TOT PROT 8.1 g/dl (6.4-8.2)
[2020-11-29 20:50] LABS: ALK PHOS 142 U/L (45-117)
[2020-11-29] MEDS ORDERED: SODIUM CHLORIDE 0.9% 500 ML INFUS.BAG IV ONE (21:07)
[2020-11-30 07:06] LABS: BASO % 0.5 % (0-2.0); EOS % 5.9 % (0-4.5); HEMATOCRIT 29.7 % (32.4-45.2); HEMOGLOBIN 9.9 GM/dL (10.7-15.3); LYMPH % 21.2 % (8-40); MCH 27.3 pg (25.7-33.7); MCHC 33.2 g/dl (32.0-36.0); MEAN CELL VOLUME 82.3 fl (80-96); MEAN PLT VOLUME 8.4 fl (7.5-11.1); MONO % 6.5 % (3.8-10.2); NEUT % 65.9 % (42.8-82.8); PLATELET COUNT 242 10^3/uL (134-434); RBC 3.61 M/mm3 (3.60-5.2); RDW 14.8 % (11.6-15.6); WHITE BLOOD COUNT 8.7 K/mm3 (4.0-10.0)
[2020-11-30 07:33] LABS: ALBUMIN 2.8 g/dl (3.4-5.0); BLOOD UREA NITROGEN 12.2 mg/dL (7-18); CALCIUM 8.3 mg/dL (8.5-10.1)
[2020-11-30 07:36] LABS: BILIRUBIN,TOTAL 0.3 mg/dL (0.2-1); CREATININE 0.4 mg/dL (0.55-1.3); TOT PROT 6.8 g/dl (6.4-8.2)
[2020-11-30] MEDS ORDERED: PT OWN MED DRAWER 7, Y5N ONE (10:01)
[2020-11-30] MEDS: levETIRAcetam 500 MG/5 ML ORAL SOLUTION (UNIT-DOSE CUPS) PO SCH ×3 (10:02→23:38)
[2020-11-30] MEDS: carBAMazepine 100 MG/5 ML UNIT-DOSE CUP PO SCH ×3 (10:02→23:39)
[2020-11-30] MEDS: CALCIUM 500MG/VIT-D 200 UNITS COMBO TABLET (FP) PO SCH ×2 (10:03→23:38)
[2020-11-30] MEDS ORDERED: CHOLECALCIFEROL (VIT D3) 1,000 UNIT (25 MCG) TABLET ONE (10:09)
[2020-11-30] MEDS ORDERED: DEXTROSE 5%-NORMAL SALINE 1,000 ML IV SCH (11:00)
[2020-11-30] MEDS: CHOLECALCIFEROL (VIT D3) 1,000 UNIT (25 MCG) TABLET PO SCH (12:22)
[2020-11-30] MEDS ORDERED: VANCOMYCIN 1 GM in D5W (PRE-DOCKED) 1,000 MG/250 ML IVPB ONE (16:30)
[2020-11-30] MEDS ORDERED: VANCOMYCIN 1 GRAM (PRE-DOCKED) 1,000 MG/250 ML BAG IVPB ONE (16:36)
[2020-11-30] MEDS: LATANOPROST 0.005% OPHTH SOLN 2.5ML BOTTLE OU SCH (23:38)
[2020-12-01] MEDS ORDERED: PT OWN MED DRAWER 7, Y5N ONE ×3 (06:04→21:20)
[2020-12-01] MEDS: levETIRAcetam 500 MG/5 ML ORAL SOLUTION (UNIT-DOSE CUPS) PO SCH ×3 (06:26→21:42)
[2020-12-01] MEDS: carBAMazepine 100 MG/5 ML UNIT-DOSE CUP PO SCH ×3 (06:26→21:43)
[2020-12-01] MEDS: CHOLECALCIFEROL (VIT D3) 1,000 UNIT (25 MCG) TABLET PO SCH (10:42)
[2020-12-01] MEDS: CALCIUM 500MG/VIT-D 200 UNITS COMBO TABLET (FP) PO SCH ×2 (10:42→21:43)
[2020-12-01] MEDS ORDERED: PIPERACILLIN/TAZOBACTAM 3.375 GM VIAL IVPB ONE (18:39)
[2020-12-01] MEDS ORDERED: DEXTROSE 5%-WATER - 50 ML IVPB ONE (18:39)
[2020-12-01] MEDS: PIPERACILLIN/TAZOB 3.375 GM 3.375 GM in DEXTROSE 5%-WATER - 50 ML IVPB SCH (18:52)
[2020-12-01] MEDS: HEPARIN NA (PORCINE) 5,000 UNITS/ML 1ML VIAL SQ SCH (21:42)
[2020-12-01] MEDS: LATANOPROST 0.005% OPHTH SOLN 2.5ML BOTTLE OU SCH (21:44)
[2020-12-02] MEDS ORDERED: DEXTROSE 5%-WATER - 50 ML IVPB ONE ×2 (00:53→09:26)
[2020-12-02] MEDS ORDERED: PIPERACILLIN/TAZOBACTAM 3.375 GM VIAL IVPB ONE ×2 (00:53→09:26)
[2020-12-02] MEDS: PIPERACILLIN/TAZOB 3.375 GM 3.375 GM in DEXTROSE 5%-WATER - 50 ML IVPB SCH ×2 (01:12→09:54)
[2020-12-02] MEDS: carBAMazepine 100 MG/5 ML UNIT-DOSE CUP PO SCH ×3 (05:03→21:13)
[2020-12-02] MEDS: levETIRAcetam 500 MG/5 ML ORAL SOLUTION (UNIT-DOSE CUPS) PO SCH ×3 (05:03→21:13)
[2020-12-02] MEDS: CHOLECALCIFEROL (VIT D3) 1,000 UNIT (25 MCG) TABLET PO SCH (09:54)
[2020-12-02] MEDS: CALCIUM 500MG/VIT-D 200 UNITS COMBO TABLET (FP) PO SCH ×2 (09:54→21:12)
[2020-12-02] MEDS: AMINO ACIDS/PROTEIN HYDROLYS 30 ML LIQUID.PKT PO SCH (09:54)
[2020-12-02] MEDS: HEPARIN NA (PORCINE) 5,000 UNITS/ML 1ML VIAL SQ SCH ×2 (09:54→21:13)
[2020-12-02] MEDS ORDERED: PT OWN MED DRAWER 7, Y5N ONE ×2 (14:02→20:52)
[2020-12-02] MEDS ORDERED: MEROPENEM 1 GM VIAL (RESTRICTED TO ID) IVPB ONE (17:37)
[2020-12-02] MEDS ORDERED: DEXTROSE 5%-WATER 100 ML IVPB ONE (17:37)
[2020-12-02] MEDS: MEROPENEM 1 GM in DEXTROSE 5%-WATER 100 ML IVPB SCH (17:40)
[2020-12-02] MEDS: LATANOPROST 0.005% OPHTH SOLN 2.5ML BOTTLE OU SCH (21:14)
[2020-12-03] MEDS ORDERED: MEROPENEM 1 GM VIAL (RESTRICTED TO ID) IVPB ONE ×3 (01:07→16:36)
[2020-12-03] MEDS ORDERED: DEXTROSE 5%-WATER 100 ML IVPB ONE ×3 (01:07→16:36)
[2020-12-03] MEDS: MEROPENEM 1 GM in DEXTROSE 5%-WATER 100 ML IVPB SCH ×3 (01:25→17:16)
[2020-12-03] MEDS ORDERED: PT OWN MED DRAWER 7, Y5N ONE ×4 (05:45→20:57)
[2020-12-03] MEDS: levETIRAcetam 500 MG/5 ML ORAL SOLUTION (UNIT-DOSE CUPS) PO SCH ×3 (05:56→21:09)
[2020-12-03] MEDS: carBAMazepine 100 MG/5 ML UNIT-DOSE CUP PO SCH ×3 (05:56→21:09)
[2020-12-03] MEDS: CHOLECALCIFEROL (VIT D3) 1,000 UNIT (25 MCG) TABLET PO SCH (09:55)
[2020-12-03] MEDS: HEPARIN NA (PORCINE) 5,000 UNITS/ML 1ML VIAL SQ SCH ×2 (09:55→21:09)
[2020-12-03] MEDS: CALCIUM 500MG/VIT-D 200 UNITS COMBO TABLET (FP) PO SCH ×2 (09:55→21:09)
[2020-12-03] MEDS: AMINO ACIDS/PROTEIN HYDROLYS 30 ML LIQUID.PKT PO SCH (09:55)
[2020-12-03] MEDS: LATANOPROST 0.005% OPHTH SOLN 2.5ML BOTTLE OU SCH (21:10)
[2020-12-04] MEDS ORDERED: MEROPENEM 1 GM VIAL (RESTRICTED TO ID) IVPB ONE ×3 (00:52→17:30)
[2020-12-04] MEDS ORDERED: DEXTROSE 5%-WATER 100 ML IVPB ONE ×3 (00:53→17:30)
[2020-12-04] MEDS: MEROPENEM 1 GM in DEXTROSE 5%-WATER 100 ML IVPB SCH ×3 (01:03→17:32)
[2020-12-04] MEDS ORDERED: PT OWN MED DRAWER 7, Y5N ONE ×5 (05:29→21:06)
[2020-12-04] MEDS: carBAMazepine 100 MG/5 ML UNIT-DOSE CUP PO SCH ×3 (05:41→21:06)
[2020-12-04] MEDS: levETIRAcetam 500 MG/5 ML ORAL SOLUTION (UNIT-DOSE CUPS) PO SCH ×3 (05:41→21:03)
[2020-12-04] MEDS: AMINO ACIDS/PROTEIN HYDROLYS 30 ML LIQUID.PKT PO SCH (09:21)
[2020-12-04] MEDS: CHOLECALCIFEROL (VIT D3) 1,000 UNIT (25 MCG) TABLET PO SCH (09:22)
[2020-12-04] MEDS: HEPARIN NA (PORCINE) 5,000 UNITS/ML 1ML VIAL SQ SCH ×2 (09:25→21:03)
[2020-12-04] MEDS: CALCIUM 500MG/VIT-D 200 UNITS COMBO TABLET (FP) PO SCH ×2 (09:25→21:03)
[2020-12-04] MEDS: VANCOMYCIN 1 GRAM (PRE-DOCKED) 1,000 MG/250 ML BAG IVPB SCH (15:43)
[2020-12-04] MEDS: LATANOPROST 0.005% OPHTH SOLN 2.5ML BOTTLE OU SCH (21:04)
[2020-12-05] MEDS ORDERED: DEXTROSE 5%-WATER 100 ML IVPB ONE ×3 (00:35→17:11)
[2020-12-05] MEDS ORDERED: MEROPENEM 1 GM VIAL (RESTRICTED TO ID) IVPB ONE ×3 (00:35→17:11)
[2020-12-05] MEDS: MEROPENEM 1 GM in DEXTROSE 5%-WATER 100 ML IVPB SCH ×3 (01:26→17:19)
[2020-12-05] MEDS: VANCOMYCIN 1 GRAM (PRE-DOCKED) 1,000 MG/250 ML BAG IVPB SCH ×2 (03:10→14:16)
[2020-12-05] MEDS: levETIRAcetam 500 MG/5 ML ORAL SOLUTION (UNIT-DOSE CUPS) PO SCH ×3 (05:33→21:19)
[2020-12-05] MEDS: carBAMazepine 100 MG/5 ML UNIT-DOSE CUP PO SCH ×3 (05:33→21:19)
[2020-12-05] MEDS: AMINO ACIDS/PROTEIN HYDROLYS 30 ML LIQUID.PKT PO SCH (08:03)
[2020-12-05] MEDS ORDERED: PT OWN MED DRAWER 7, Y5N ONE ×3 (09:17→21:06)
[2020-12-05] MEDS: CALCIUM 500MG/VIT-D 200 UNITS COMBO TABLET (FP) PO SCH ×2 (09:21→21:19)
[2020-12-05] MEDS: CHOLECALCIFEROL (VIT D3) 1,000 UNIT (25 MCG) TABLET PO SCH (09:22)
[2020-12-05] MEDS: HEPARIN NA (PORCINE) 5,000 UNITS/ML 1ML VIAL SQ SCH ×2 (09:23→21:19)
[2020-12-05 11:15] LABS: BASO % 0.7 % (0-2.0); EOS % 5.7 % (0-4.5); HEMATOCRIT 31.3 % (32.4-45.2); HEMOGLOBIN 10.2 GM/dL (10.7-15.3); MCH 26.7 pg (25.7-33.7); MCHC 32.6 g/dl (32.0-36.0); MEAN CELL VOLUME 81.7 fl (80-96); MEAN PLT VOLUME 8.7 fl (7.5-11.1); MONO % 4.5 % (3.8-10.2); NEUT % 69.1 % (42.8-82.8); PLATELET COUNT 285 10^3/uL (134-434); RBC 3.82 M/mm3 (3.60-5.2); RDW 14.3 % (11.6-15.6); WHITE BLOOD COUNT 7.3 K/mm3 (4.0-10.0)
[2020-12-05 11:38] LABS: CALCIUM 8.9 mg/dL (8.5-10.1)
[2020-12-05 11:39] LABS: BLOOD UREA NITROGEN 11.8 mg/dL (7-18)
[2020-12-05 11:42] LABS: CREATININE 0.5 mg/dL (0.55-1.3)
[2020-12-05 12:21] VITALS: BMI 22.6
[2020-12-05] MEDS: LATANOPROST 0.005% OPHTH SOLN 2.5ML BOTTLE OU SCH (21:18)
[2020-12-06] MEDS ORDERED: MEROPENEM 1 GM VIAL (RESTRICTED TO ID) IVPB ONE ×3 (00:47→17:05)
[2020-12-06] MEDS ORDERED: DEXTROSE 5%-WATER 100 ML IVPB ONE ×3 (00:47→17:05)
[2020-12-06] MEDS: MEROPENEM 1 GM in DEXTROSE 5%-WATER 100 ML IVPB SCH ×3 (01:02→17:08)
[2020-12-06] MEDS: VANCOMYCIN 1 GRAM (PRE-DOCKED) 1,000 MG/250 ML BAG IVPB SCH ×2 (02:09→14:08)
[2020-12-06] MEDS: carBAMazepine 100 MG/5 ML UNIT-DOSE CUP PO SCH ×3 (05:16→21:11)
[2020-12-06] MEDS: levETIRAcetam 500 MG/5 ML ORAL SOLUTION (UNIT-DOSE CUPS) PO SCH ×3 (05:16→21:11)
[2020-12-06] MEDS ORDERED: PT OWN MED DRAWER 7, Y5N ONE ×3 (09:09→20:55)
[2020-12-06] MEDS: CALCIUM 500MG/VIT-D 200 UNITS COMBO TABLET (FP) PO SCH ×2 (09:16→21:11)
[2020-12-06] MEDS: MULTIVIT-MINERALS ORAL LIQUID PO SCH (09:16)
[2020-12-06] MEDS: AMINO ACIDS/PROTEIN HYDROLYS 30 ML LIQUID.PKT PO SCH (09:16)
[2020-12-06] MEDS: CHOLECALCIFEROL (VIT D3) 1,000 UNIT (25 MCG) TABLET PO SCH (09:16)
[2020-12-06] MEDS: HEPARIN NA (PORCINE) 5,000 UNITS/ML 1ML VIAL SQ SCH ×2 (09:17→21:11)
[2020-12-06] MEDS: LATANOPROST 0.005% OPHTH SOLN 2.5ML BOTTLE OU SCH (21:12)
[2020-12-07] MEDS ORDERED: MEROPENEM 1 GM VIAL (RESTRICTED TO ID) IVPB ONE ×3 (01:09→17:35)
[2020-12-07] MEDS ORDERED: DEXTROSE 5%-WATER 100 ML IVPB ONE ×3 (01:10→17:36)
[2020-12-07] MEDS: MEROPENEM 1 GM in DEXTROSE 5%-WATER 100 ML IVPB SCH ×3 (01:27→17:40)
[2020-12-07] MEDS: VANCOMYCIN 1 GRAM (PRE-DOCKED) 1,000 MG/250 ML BAG IVPB SCH ×2 (02:52→14:52)
[2020-12-07] MEDS: levETIRAcetam 500 MG/5 ML ORAL SOLUTION (UNIT-DOSE CUPS) PO SCH ×2 (05:53→13:20)
[2020-12-07] MEDS: carBAMazepine 100 MG/5 ML UNIT-DOSE CUP PO SCH ×2 (05:54→13:20)
[2020-12-07] MEDS ORDERED: PT OWN MED DRAWER 7, Y5N ONE ×4 (09:28→13:17)
[2020-12-07] MEDS: CALCIUM 500MG/VIT-D 200 UNITS COMBO TABLET (FP) PO SCH (09:33)
[2020-12-07] MEDS: CHOLECALCIFEROL (VIT D3) 1,000 UNIT (25 MCG) TABLET PO SCH (09:33)
[2020-12-07] MEDS: HEPARIN NA (PORCINE) 5,000 UNITS/ML 1ML VIAL SQ SCH (09:33)
[2020-12-07] MEDS: AMINO ACIDS/PROTEIN HYDROLYS 30 ML LIQUID.PKT PO SCH (09:34)
[2020-12-07] MEDS: MULTIVIT-MINERALS ORAL LIQUID PO SCH (11:24)
[2020-12-07 14:08] VITALS: BP 129/59; PULSE 62; TEMP 97.6
== END 2020-12-07 20:50 | DRG 393 ==
LOC: JER 17:11 → JERBED 22:44 → J8W 11-30 19:49
PROVIDERS: ADMIT Internal Medicine; ATTEND Internal Medicine
PROC: 0W9J30Z Drainage of Pelvic Cavity with Drainage Device, Percutaneous Approach (ICD-10-PCS; 2020-11-30)
PROC: 05HC33Z Insertion of Infusion Device into Left Basilic Vein, Percutaneous Approach (ICD-10-PCS; principal; 2020-12-06)
DX: K91.89 Other postprocedural complications and disorders of digestive system (principal); R53.2 Functional quadriplegia; F79 Unspecified intellectual disabilities; G40.909 Epilepsy, unspecified, not intractable, without status epilepticus; I10 Essential (primary) hypertension; K59.09 Other constipation; H40.9 Unspecified glaucoma; D75.9 Disease of blood and blood-forming organs, unspecified; B96.20 Unspecified Escherichia coli [E. coli] as the cause of diseases classified elsewhere; Z22.322 Carrier or suspected carrier of Methicillin resistant Staphylococcus aureus; R13.10 Dysphagia, unspecified; Y84.8 Other medical procedures as the cause of abnormal reaction of the patient, or of later complication, without mention of misadventure at the time of the procedure; Z87.898 Personal history of other specified conditions
CPT/HCPCS: 36415; 49407; 71045-TC-FY; 74177-TC; 80048; 80053; 82550; 82962; 84484; 85025; 86850; 86900; 86901; 87070; 87075; 87076; 87102; 87116; 87186; 87205; 87206; 87210; 93005; 93010; 99285-25; C9803; G0480; J1644; Q9967; U0003; U0005

== ENCOUNTER 2021-01-01 23:21 | Emergency (ER) | payer OTHER ==
[2021-01-02 00:25] VITALS: BMI 19.6
[2021-01-02 01:22] LABS: BASO % 0.8 % (0-2.0); EOS % 6.1 % (0-4.5); HEMATOCRIT 30.7 % (32.4-45.2); HEMOGLOBIN 9.9 GM/dL (10.7-15.3); LYMPH % 28.2 % (8-40); MCH 26.7 pg (25.7-33.7); MCHC 32.3 g/dl (32.0-36.0); MEAN CELL VOLUME 82.5 fl (80-96); MEAN PLT VOLUME 9.3 fl (7.5-11.1); MONO % 7.8 % (3.8-10.2); NEUT % 57.1 % (42.8-82.8); RBC 3.71 M/mm3 (3.60-5.2); RDW 14.9 % (11.6-15.6); WHITE BLOOD COUNT 11.6 K/mm3 (4.0-10.0)
[2021-01-02 02:04] LABS: ALBUMIN 3.1 g/dl (3.4-5.0); CALCIUM 8.7 mg/dL (8.5-10.1)
[2021-01-02 02:05] LABS: BLOOD UREA NITROGEN 13.3 mg/dL (7-18)
[2021-01-02 02:08] LABS: CREATININE 0.6 mg/dL (0.55-1.3)
[2021-01-02 02:09] LABS: BILIRUBIN,TOTAL 0.2 mg/dL (0.2-1); TOT PROT 7.7 g/dl (6.4-8.2)
[2021-01-02 03:50] LABS: PLATELET COUNT 187 10^3/uL (134-434)
[2021-01-02 08:44] LABS: EPI CELLS 7 /uL (0-25.1); HYALINE CASTS 0 /uL (0-3.1); PH,URINE 6.5 (5.0-8.0); URINE APPEARANCE Cloudy; URINE BACTERIA 4 /uL (0-1359); URINE BILIRUBIN Negative (NEGATIVE); URINE COLOR Yellow; URINE GLUCOSE (UA) Negative (NEGATIVE); URINE KETONE Negative (NEGATIVE); URINE LEUK ESTERASE 2+ (NEGATIVE); URINE NITRITE Negative (NEGATIVE); URINE PROTEIN Negative (NEGATIVE); URINE RBC 23 /uL (0-23.9); URINE UROBILINOGEN 0.2 mg/dL (0.2-1.0); URINE WBC 1962 /uL (0-25.8)
[2021-01-02 15:07] VITALS: TEMP 97.6
[2021-01-02 18:01] VITALS: PULSE 59
[2021-01-02 20:25] VITALS: BP 118/58
== END 2021-01-02 21:58 | disposition home or self-care (01) ==
LOC: JER 23:21
DX: T85.698A Other mechanical complication of other specified internal prosthetic devices, implants and grafts, initial encounter (principal)
CPT/HCPCS: 36415; 71045-TC-FY; 74177-TC; 80053; 81003; 85025; 87086; 93005; 93010; 99285-25; Q9967

== ENCOUNTER 2021-08-24 15:25 | Inpatient (IN) | payer OTHER ==
[2021-08-24 15:52] VITALS: BMI 23.6
[2021-08-24] MEDS ORDERED: levETIRAcetam 500 MG/5 ML INJECTION VIAL IVPB ONE ×2 (16:06→16:44)
[2021-08-24 17:17] LABS: BASO % 0.7 % (0-2.0); EOS % 3.8 % (0-4.5); HEMATOCRIT 34.7 % (32.4-45.2); MCH 26.2 pg (25.7-33.7); MCHC 31.6 g/dl (32.0-36.0); MEAN PLT VOLUME 9.6 fl (7.5-11.1); MONO % 5.3 % (3.8-10.2); NEUT % 75.2 % (42.8-82.8); PLATELET COUNT 330 10^3/uL (134-434); RBC 4.17 M/mm3 (3.60-5.2); RDW 14.1 % (11.6-15.6); WHITE BLOOD COUNT 12.3 K/mm3 (4.0-10.0)
[2021-08-24 17:37] LABS: CALCIUM 9.1 mg/dL (8.5-10.1)
[2021-08-24 17:38] LABS: ALBUMIN 3.4 g/dl (3.4-5.0); BLOOD UREA NITROGEN 14.7 mg/dL (7-18); MAGNESIUM 2.3 mg/dL (1.8-2.4)
[2021-08-24 17:41] LABS: CREATININE 0.6 mg/dL (0.55-1.3); PHOSPHOROUS 3.1 mg/dL (2.5-4.9)
[2021-08-24 17:42] LABS: BILIRUBIN,TOTAL 0.1 mg/dL (0.2-1); TOT PROT 7.8 g/dl (6.4-8.2)
[2021-08-24 17:58] LABS: EPI CELLS >36 /uL (0-25.1); HYALINE CASTS 9 /uL (0-3.1); PH,URINE 6.5 (5.0-8.0); URINE APPEARANCE TURBID; URINE BACTERIA 4248 /uL (0-1359); URINE BILIRUBIN NEGATIVE (NEGATIVE); URINE COLOR YELLOW; URINE GLUCOSE (UA) NEGATIVE (NEGATIVE); URINE KETONE NEGATIVE (NEGATIVE); URINE LEUK ESTERASE TRACE (NEGATIVE); URINE NITRITE NEGATIVE (NEGATIVE); URINE PROTEIN TRACE (NEGATIVE); URINE RBC 66 /uL (0-23.9); URINE UROBILINOGEN 0.2 mg/dL (0.2-1.0); URINE WBC 45 /uL (0-25.8)
[2021-08-24] MEDS ORDERED: ERTAPENEM SODIUM 1 GM in SODIUM CHLORIDE 50 ML IVPB ONE (19:21)
[2021-08-24] MEDS ORDERED: ERTAPENEM SODIUM 1 GM VIAL ONE (19:36)
[2021-08-25] MEDS ORDERED: ACETAMINOPHEN 325 MG TABLET (FP) PO PRN (07:00)
[2021-08-25] MEDS ORDERED: carBAMazepine 100 MG/5 ML UNIT-DOSE CUP PO SCH (07:00)
[2021-08-25 07:24] LABS: BASO % 0.6 % (0-2.0); EOS % 5.7 % (0-4.5); HEMATOCRIT 34.2 % (32.4-45.2); HEMOGLOBIN 11.1 GM/dL (10.7-15.3); LYMPH % 23.7 % (8-40); MCH 26.9 pg (25.7-33.7); MCHC 32.5 g/dl (32.0-36.0); MEAN CELL VOLUME 82.7 fl (80-96); MEAN PLT VOLUME 9.1 fl (7.5-11.1); MONO % 4.5 % (3.8-10.2); NEUT % 65.5 % (42.8-82.8); PLATELET COUNT 244 10^3/uL (134-434); RBC 4.13 M/mm3 (3.60-5.2); RDW 14.1 % (11.6-15.6); WHITE BLOOD COUNT 7.2 K/mm3 (4.0-10.0)
[2021-08-25 07:32] LABS: INR 1.18 (0.83-1.09); PROTHROMBIN TIME (PATIENT) 13.6 SEC (9.7-13.0)
[2021-08-25 07:34] LABS: ACTIVATED PTT 36.3 SECONDS (25.2-36.5)
[2021-08-25 07:48] LABS: CALCIUM 9.3 mg/dL (8.5-10.1)
[2021-08-25 07:49] LABS: BLOOD UREA NITROGEN 10.7 mg/dL (7-18)
[2021-08-25 07:52] LABS: CREATININE 0.5 mg/dL (0.55-1.3)
[2021-08-25] MEDS ORDERED: carBAMazepine 200 MG TABLET ONE (08:01)
[2021-08-25] MEDS: carBAMazepine 200 MG TABLET PO SCH ×3 (08:05→22:54)
[2021-08-25] MEDS ORDERED: CHOLECALCIFEROL (VIT D3) 1,000 UNIT (25 MCG) TABLET ONE (09:14)
[2021-08-25] MEDS ORDERED: ENOXAPARIN NA (PORCINE) 40 MG/0.4 ML DISP.SYRIN SQ ONE (09:14)
[2021-08-25] MEDS ORDERED: ASCORBIC ACID 500 MG TABLET (FP) ONE (09:14)
[2021-08-25] MEDS: ENOXAPARIN NA (PORCINE) 40 MG/0.4 ML DISP.SYRIN SQ SCH (09:22)
[2021-08-25] MEDS: ASCORBIC ACID 500 MG TABLET (FP) PO SCH (09:22)
[2021-08-25] MEDS: CHOLECALCIFEROL (VIT D3) 1,000 UNIT (25 MCG) TABLET PO SCH (09:22)
[2021-08-25] MEDS ORDERED: DEXTROSE 5%-WATER - 50 ML IVPB ONE (12:46)
[2021-08-25] MEDS ORDERED: cefTRIAXone SODIUM 1 GM VIAL ONE (12:46)
[2021-08-25] MEDS: levETIRAcetam 500 MG/5 ML ORAL SOLUTION (UNIT-DOSE CUPS) PO SCH ×2 (12:56→22:55)
[2021-08-25] MEDS: POLYETHYLENE GLYCOL (HEALTHYLAX) 3350 17 GM PACKET PO SCH (12:56)
[2021-08-25] MEDS: CALCIUM 500MG/VIT-D 200 UNITS COMBO TABLET (FP) PO SCH ×2 (12:57→22:55)
[2021-08-25] MEDS: CEFTRIAXONE 1 GM in DEXTROSE 5%-WATER - 50 ML IVPB SCH (12:58)
[2021-08-25] MEDS ORDERED: ERTAPENEM SODIUM 1 GM in SODIUM CHLORIDE 50 ML IVPB SCH (22:00)
[2021-08-25] MEDS: LATANOPROST 0.005% OPHTH SOLN 2.5ML BOTTLE OU SCH (22:55)
[2021-08-25] MEDS: DOCUSATE SODIUM 100 MG CAPSULE (FP) PO SCH (22:55)
[2021-08-26] MEDS: carBAMazepine 200 MG TABLET PO SCH ×3 (08:23→22:48)
[2021-08-26] MEDS ORDERED: cefTRIAXone SODIUM 1 GM VIAL ONE (09:52)
[2021-08-26] MEDS ORDERED: DEXTROSE 5%-WATER - 50 ML IVPB ONE (09:52)
[2021-08-26] MEDS: CALCIUM 500MG/VIT-D 200 UNITS COMBO TABLET (FP) PO SCH ×2 (10:16→21:27)
[2021-08-26] MEDS: levETIRAcetam 500 MG/5 ML ORAL SOLUTION (UNIT-DOSE CUPS) PO SCH ×2 (10:16→21:27)
[2021-08-26] MEDS: CHOLECALCIFEROL (VIT D3) 1,000 UNIT (25 MCG) TABLET PO SCH (10:16)
[2021-08-26] MEDS: POLYETHYLENE GLYCOL (HEALTHYLAX) 3350 17 GM PACKET PO SCH (10:16)
[2021-08-26] MEDS: CEFTRIAXONE 1 GM in DEXTROSE 5%-WATER - 50 ML IVPB SCH ×2 (10:16→10:19)
[2021-08-26] MEDS: ASCORBIC ACID 500 MG TABLET (FP) PO SCH (10:16)
[2021-08-26] MEDS: ENOXAPARIN NA (PORCINE) 40 MG/0.4 ML DISP.SYRIN SQ SCH (10:17)
[2021-08-26] MEDS: DOCUSATE SODIUM 100 MG CAPSULE (FP) PO SCH (21:27)
[2021-08-26] MEDS: LATANOPROST 0.005% OPHTH SOLN 2.5ML BOTTLE OU SCH (22:00)
[2021-08-27] MEDS: carBAMazepine 200 MG TABLET PO SCH ×2 (07:46→15:30)
[2021-08-27] MEDS ORDERED: DEXTROSE 5%-WATER - 50 ML IVPB ONE (10:52)
[2021-08-27] MEDS ORDERED: cefTRIAXone SODIUM 1 GM VIAL ONE (10:52)
[2021-08-27] MEDS: POLYETHYLENE GLYCOL (HEALTHYLAX) 3350 17 GM PACKET PO SCH (11:06)
[2021-08-27] MEDS: levETIRAcetam 500 MG/5 ML ORAL SOLUTION (UNIT-DOSE CUPS) PO SCH ×2 (11:06→21:51)
[2021-08-27] MEDS: ENOXAPARIN NA (PORCINE) 40 MG/0.4 ML DISP.SYRIN SQ SCH (11:06)
[2021-08-27] MEDS: CEFTRIAXONE 1 GM in DEXTROSE 5%-WATER - 50 ML IVPB SCH (11:07)
[2021-08-27] MEDS: CALCIUM 500MG/VIT-D 200 UNITS COMBO TABLET (FP) PO SCH ×2 (11:08→21:51)
[2021-08-27] MEDS: ASCORBIC ACID 500 MG TABLET (FP) PO SCH (11:08)
[2021-08-27] MEDS: CHOLECALCIFEROL (VIT D3) 1,000 UNIT (25 MCG) TABLET PO SCH (11:08)
[2021-08-27] MEDS: DOCUSATE SODIUM 100 MG CAPSULE (FP) PO SCH (21:51)
[2021-08-27] MEDS: LATANOPROST 0.005% OPHTH SOLN 2.5ML BOTTLE OU SCH (22:55)
[2021-08-28] MEDS: carBAMazepine 200 MG TABLET PO SCH ×4 (00:28→22:48)
[2021-08-28] MEDS ORDERED: cefTRIAXone SODIUM 1 GM VIAL ONE (10:17)
[2021-08-28] MEDS ORDERED: DEXTROSE 5%-WATER - 50 ML IVPB ONE (10:17)
[2021-08-28] MEDS: POLYETHYLENE GLYCOL (HEALTHYLAX) 3350 17 GM PACKET PO SCH (10:22)
[2021-08-28] MEDS: CEFTRIAXONE 1 GM in DEXTROSE 5%-WATER - 50 ML IVPB SCH (10:23)
[2021-08-28] MEDS: ASCORBIC ACID 500 MG TABLET (FP) PO SCH (10:23)
[2021-08-28] MEDS: levETIRAcetam 500 MG/5 ML ORAL SOLUTION (UNIT-DOSE CUPS) PO SCH ×2 (10:23→22:48)
[2021-08-28] MEDS: CHOLECALCIFEROL (VIT D3) 1,000 UNIT (25 MCG) TABLET PO SCH (10:23)
[2021-08-28] MEDS: CALCIUM 500MG/VIT-D 200 UNITS COMBO TABLET (FP) PO SCH ×2 (10:23→22:48)
[2021-08-28] MEDS: ENOXAPARIN NA (PORCINE) 40 MG/0.4 ML DISP.SYRIN SQ SCH (10:25)
[2021-08-28] MEDS: DOCUSATE SODIUM 100 MG CAPSULE (FP) PO SCH (22:48)
[2021-08-28] MEDS: LATANOPROST 0.005% OPHTH SOLN 2.5ML BOTTLE OU SCH (22:48)
[2021-08-29] MEDS ORDERED: cefTRIAXone SODIUM 1 GM VIAL ONE (08:54)
[2021-08-29] MEDS ORDERED: DEXTROSE 5%-WATER - 50 ML IVPB ONE (08:54)
[2021-08-29] MEDS: CALCIUM 500MG/VIT-D 200 UNITS COMBO TABLET (FP) PO SCH (09:07)
[2021-08-29] MEDS: carBAMazepine 200 MG TABLET PO SCH (09:07)
[2021-08-29] MEDS: CHOLECALCIFEROL (VIT D3) 1,000 UNIT (25 MCG) TABLET PO SCH (09:07)
[2021-08-29] MEDS: levETIRAcetam 500 MG/5 ML ORAL SOLUTION (UNIT-DOSE CUPS) PO SCH (09:07)
[2021-08-29] MEDS: ASCORBIC ACID 500 MG TABLET (FP) PO SCH (09:07)
[2021-08-29] MEDS: ENOXAPARIN NA (PORCINE) 40 MG/0.4 ML DISP.SYRIN SQ SCH (09:08)
[2021-08-29] MEDS: POLYETHYLENE GLYCOL (HEALTHYLAX) 3350 17 GM PACKET PO SCH (09:08)
[2021-08-29] MEDS: CEFTRIAXONE 1 GM in DEXTROSE 5%-WATER - 50 ML IVPB SCH (09:08)
[2021-08-29 13:18] VITALS: BP 116/68; PULSE 64; TEMP 98.2
== END 2021-08-29 13:00 | DRG 100 ==
LOC: JER 15:25 → JERBED 20:04 → J8W 08-25 09:58
PROVIDERS: ADMIT Hospitalist; ATTEND Internal Medicine
PROC: 4A10X4Z Monitoring of Central Nervous Electrical Activity, External Approach (ICD-10-PCS; principal; 2021-08-26)
DX: G40.409 Other generalized epilepsy and epileptic syndromes, not intractable, without status epilepticus (principal); R53.2 Functional quadriplegia; N39.0 Urinary tract infection, site not specified; F79 Unspecified intellectual disabilities; K59.00 Constipation, unspecified; R13.19 Other dysphagia; I10 Essential (primary) hypertension; D72.829 Elevated white blood cell count, unspecified; R41.89 Other symptoms and signs involving cognitive functions and awareness; B96.4 Proteus (mirabilis) (morganii) as the cause of diseases classified elsewhere; Z74.01 Bed confinement status; Z16.12 Extended spectrum beta lactamase (ESBL) resistance
CPT/HCPCS: 0241U-QW; 36415; 70450-TC; 71045-TC-FY; 80048; 80053; 80156; 80177; 81003; 82962; 83735; 84100; 85025; 85610; 85730; 87077; 87086; 87186; 93005; 93010; 95816; 99285-25

== ENCOUNTER 2021-10-01 01:01 | Inpatient (IN) | payer OTHER ==
[2021-10-01 02:33] LABS: BASO % 0.4 % (0-2.0); EOS % 6.2 % (0-4.5); HEMATOCRIT 33.6 % (32.4-45.2); HEMOGLOBIN 10.9 GM/dL (10.7-15.3); LYMPH % 26.4 % (8-40); MCH 26.3 pg (25.7-33.7); MCHC 32.4 g/dl (32.0-36.0); MEAN CELL VOLUME 81.2 fl (80-96); MEAN PLT VOLUME 8.8 fl (7.5-11.1); MONO % 5.3 % (3.8-10.2); NEUT % 61.7 % (42.8-82.8); PLATELET COUNT 283 10^3/uL (134-434); RBC 4.13 M/mm3 (3.60-5.2); RDW 14.5 % (11.6-15.6); WHITE BLOOD COUNT 8.2 K/mm3 (4.0-10.0)
[2021-10-01 02:49] LABS: INR 1.11 (0.83-1.09); PROTHROMBIN TIME (PATIENT) 12.8 SEC (9.7-13.0)
[2021-10-01 02:52] LABS: ACTIVATED PTT 33.4 SECONDS (25.2-36.5)
[2021-10-01 02:57] LABS: ALBUMIN 3.5 g/dl (3.4-5.0); CALCIUM 9.2 mg/dL (8.5-10.1)
[2021-10-01 02:59] LABS: BILIRUBIN,DIRECT 0.2 mg/dL (0.0-0.2)
[2021-10-01 03:00] LABS: CREATININE 0.7 mg/dL (0.55-1.3)
[2021-10-01 03:02] LABS: BILIRUBIN,TOTAL 0.2 mg/dL (0.2-1); TOT PROT 8.2 g/dl (6.4-8.2)
[2021-10-02] MEDS ORDERED: levETIRAcetam 500 MG/5 ML INJECTION VIAL IVPB ONE (02:23)
[2021-10-02] MEDS ORDERED: DOCUSATE NA 100 MG/10 ML UNIT-DOSE CUPS PO PRN (02:40)
[2021-10-02] MEDS: DEXTROSE 5%-NORMAL SALINE 1,000 ML IV SCH ×2 (03:41→22:59)
[2021-10-02] MEDS: carBAMazepine 200 MG/10 ML UNIT-DOSE CUP PO SCH ×4 (07:11→23:13)
[2021-10-02 09:04] LABS: BASO % 0.6 % (0-2.0); EOS % 5.1 % (0-4.5); HEMATOCRIT 31.6 % (32.4-45.2); HEMOGLOBIN 10.3 GM/dL (10.7-15.3); LYMPH % 18.4 % (8-40); MCH 26.7 pg (25.7-33.7); MCHC 32.5 g/dl (32.0-36.0); MONO % 7.4 % (3.8-10.2); NEUT % 68.5 % (42.8-82.8); PLATELET COUNT 247 10^3/uL (134-434); RBC 3.86 M/mm3 (3.60-5.2); RDW 14.5 % (11.6-15.6); WHITE BLOOD COUNT 5.9 K/mm3 (4.0-10.0)
[2021-10-02 09:22] LABS: BLOOD UREA NITROGEN 10.1 mg/dL (7-18); CALCIUM 8.6 mg/dL (8.5-10.1); MAGNESIUM 2.3 mg/dL (1.8-2.4)
[2021-10-02 09:26] LABS: CREATININE 0.6 mg/dL (0.55-1.3)
[2021-10-02] MEDS: levETIRAcetam 500 MG/5 ML INJECTION VIAL IVPB SCH ×3 (10:13→23:12)
[2021-10-02 11:06] LABS: ALBUMIN 3.1 g/dl (3.4-5.0)
[2021-10-02 11:09] LABS: BILIRUBIN,DIRECT 1.2 mg/dL (0.0-0.2)
[2021-10-02 11:11] LABS: BILIRUBIN,TOTAL 1.4 mg/dL (0.2-1); TOT PROT 7.1 g/dl (6.4-8.2)
[2021-10-02 13:49] VITALS: BMI 24.7
[2021-10-02] MEDS: LATANOPROST 0.005% OPHTH SOLN 2.5ML BOTTLE OU SCH (23:12)
[2021-10-03] MEDS: carBAMazepine 200 MG/10 ML UNIT-DOSE CUP PO SCH ×3 (06:32→22:39)
[2021-10-03 10:24] LABS: BASO % 0.5 % (0-2.0); EOS % 7.6 % (0-4.5); HEMATOCRIT 33.9 % (32.4-45.2); HEMOGLOBIN 10.7 GM/dL (10.7-15.3); LYMPH % 23.6 % (8-40); MCH 26.2 pg (25.7-33.7); MCHC 31.5 g/dl (32.0-36.0); MEAN CELL VOLUME 83.1 fl (80-96); MONO % 4.3 % (3.8-10.2); PLATELET COUNT 283 10^3/uL (134-434); RBC 4.07 M/mm3 (3.60-5.2); RDW 14.9 % (11.6-15.6); WHITE BLOOD COUNT 7.3 K/mm3 (4.0-10.0)
[2021-10-03] MEDS: levETIRAcetam 500 MG/5 ML INJECTION VIAL IVPB SCH ×3 (10:29→22:38)
[2021-10-03 10:48] LABS: BLOOD UREA NITROGEN 4.7 mg/dL (7-18); CALCIUM 8.6 mg/dL (8.5-10.1)
[2021-10-03 10:49] LABS: ALBUMIN 3.4 g/dl (3.4-5.0)
[2021-10-03 10:51] LABS: CREATININE 0.5 mg/dL (0.55-1.3)
[2021-10-03 10:52] LABS: BILIRUBIN,TOTAL 0.4 mg/dL (0.2-1); TOT PROT 7.6 g/dl (6.4-8.2)
[2021-10-03] MEDS: DEXTROSE 5%-NORMAL SALINE 1,000 ML IV SCH ×2 (16:48→22:36)
[2021-10-03] MEDS: URSODIOL 300 MG CAPSULE PO SCH (22:37)
[2021-10-03] MEDS: LATANOPROST 0.005% OPHTH SOLN 2.5ML BOTTLE OU SCH (22:38)
[2021-10-04] MEDS: carBAMazepine 200 MG/10 ML UNIT-DOSE CUP PO SCH ×3 (06:16→22:59)
[2021-10-04] MEDS: DEXTROSE 5%-NORMAL SALINE 1,000 ML IV SCH ×2 (10:10→23:31)
[2021-10-04] MEDS: URSODIOL 300 MG CAPSULE PO SCH ×2 (10:17→22:58)
[2021-10-04] MEDS: levETIRAcetam 500 MG/5 ML INJECTION VIAL IVPB SCH ×3 (10:17→22:58)
[2021-10-04 13:17] LABS: BASO % 0.6 % (0-2.0); EOS % 6.5 % (0-4.5); HEMATOCRIT 33.4 % (32.4-45.2); HEMOGLOBIN 10.7 GM/dL (10.7-15.3); LYMPH % 21.1 % (8-40); MCH 26.3 pg (25.7-33.7); MEAN CELL VOLUME 82.1 fl (80-96); MEAN PLT VOLUME 9.4 fl (7.5-11.1); MONO % 6.5 % (3.8-10.2); NEUT % 65.3 % (42.8-82.8); PLATELET COUNT 250 10^3/uL (134-434); RBC 4.07 M/mm3 (3.60-5.2); RDW 14.6 % (11.6-15.6); WHITE BLOOD COUNT 6.7 K/mm3 (4.0-10.0)
[2021-10-04 13:31] LABS: CHLORIDE 107 mmol/L (98-107); SODIUM 143 mmol/L (136-145)
[2021-10-04 13:33] LABS: CALCIUM 8.6 mg/dL (8.5-10.1)
[2021-10-04 13:34] LABS: ALBUMIN 3.1 g/dl (3.4-5.0); ANION GAP 8 MMOL/L (8-16); CO2 29 mmol/L (21-32); GLUCOSE,RANDOM 116 mg/dL (74-106)
[2021-10-04 13:37] LABS: CREATININE 0.5 mg/dL (0.55-1.3); SGOT/AST 318 U/L (15-37); SGPT/ALT 767 U/L (13-61)
[2021-10-04 13:38] LABS: BILIRUBIN,TOTAL 1.2 mg/dL (0.2-1); TOT PROT 7.2 g/dl (6.4-8.2)
[2021-10-04 13:46] LABS: ALK PHOS 435 U/L (45-117); BLOOD UREA NITROGEN 2.9 mg/dL (7-18)
[2021-10-04] MEDS: LATANOPROST 0.005% OPHTH SOLN 2.5ML BOTTLE OU SCH (23:00)
[2021-10-05] MEDS: carBAMazepine 200 MG/10 ML UNIT-DOSE CUP PO SCH ×3 (06:28→23:00)
[2021-10-05 09:06] LABS: BASO % 1.2 % (0-2.0); EOS % 8.3 % (0-4.5); HEMATOCRIT 35.4 % (32.4-45.2); HEMOGLOBIN 11.2 GM/dL (10.7-15.3); LYMPH % 25.3 % (8-40); MCH 26.9 pg (25.7-33.7); MCHC 31.6 g/dl (32.0-36.0); MEAN CELL VOLUME 84.9 fl (80-96); MEAN PLT VOLUME 9.7 fl (7.5-11.1); MONO % 6.5 % (3.8-10.2); NEUT % 58.7 % (42.8-82.8); PLATELET COUNT 256 10^3/uL (134-434); RBC 4.17 M/mm3 (3.60-5.2); RDW 14.8 % (11.6-15.6); WHITE BLOOD COUNT 5.9 K/mm3 (4.0-10.0)
[2021-10-05 09:28] LABS: CHLORIDE 111 mmol/L (98-107); SODIUM 144 mmol/L (136-145)
[2021-10-05 09:34] LABS: ALBUMIN 3.3 g/dl (3.4-5.0); CALCIUM 8.6 mg/dL (8.5-10.1)
[2021-10-05 09:35] LABS: ANION GAP 7 MMOL/L (8-16); CO2 27 mmol/L (21-32); GLUCOSE,RANDOM 119 mg/dL (74-106)
[2021-10-05 09:37] LABS: CREATININE 0.4 mg/dL (0.55-1.3); SGOT/AST 235 U/L (15-37); SGPT/ALT 725 U/L (13-61)
[2021-10-05 09:38] LABS: BILIRUBIN,TOTAL 1.2 mg/dL (0.2-1); TOT PROT 7.7 g/dl (6.4-8.2)
[2021-10-05 10:10] LABS: ALK PHOS 513 U/L (45-117); BLOOD UREA NITROGEN 2.9 mg/dL (7-18)
[2021-10-05] MEDS: levETIRAcetam 500 MG/5 ML INJECTION VIAL IVPB SCH ×3 (10:19→23:00)
[2021-10-05] MEDS: URSODIOL 300 MG CAPSULE PO SCH ×2 (10:19→23:11)
[2021-10-05] MEDS: DEXTROSE 5%-NORMAL SALINE 1,000 ML IV SCH (19:00)
[2021-10-05] MEDS: LATANOPROST 0.005% OPHTH SOLN 2.5ML BOTTLE OU SCH (23:07)
[2021-10-05 23:08] VITALS: RESP 20
[2021-10-06] MEDS: carBAMazepine 200 MG/10 ML UNIT-DOSE CUP PO SCH ×2 (07:00→13:45)
[2021-10-06] MEDS: levETIRAcetam 500 MG/5 ML INJECTION VIAL IVPB SCH ×2 (10:21→13:45)
[2021-10-06] MEDS: URSODIOL 300 MG CAPSULE PO SCH (10:21)
[2021-10-06 15:28] LABS: CALCIUM 8.8 mg/dL (8.5-10.1)
[2021-10-06 15:29] LABS: BLOOD UREA NITROGEN 4.4 mg/dL (7-18)
[2021-10-06 15:32] LABS: BILIRUBIN,DIRECT 0.3 mg/dL (0.0-0.2); CREATININE 0.5 mg/dL (0.55-1.3)
[2021-10-06 15:33] LABS: BILIRUBIN,TOTAL 0.5 mg/dL (0.2-1)
[2021-10-06 16:09] VITALS: BP 141/71; PULSE 71; TEMP 98.6
[2021-10-06] MEDS: DEXTROSE 5%-NORMAL SALINE 1,000 ML IV SCH (18:41)
== END 2021-10-06 21:00 | DRG 445 ==
LOC: JER 01:01 → JERBED 04:47 → J8W 22:39
PROVIDERS: ADMIT Family Medicine; ATTEND Internal Medicine
DX: K80.50 Calculus of bile duct without cholangitis or cholecystitis without obstruction (principal); N04.9 Nephrotic syndrome with unspecified morphologic changes; I10 Essential (primary) hypertension; G40.909 Epilepsy, unspecified, not intractable, without status epilepticus; R41.89 Other symptoms and signs involving cognitive functions and awareness; R13.10 Dysphagia, unspecified; E55.9 Vitamin D deficiency, unspecified; R79.89 Other specified abnormal findings of blood chemistry; H40.9 Unspecified glaucoma; K59.09 Other constipation; Z93.3 Colostomy status
CPT/HCPCS: 36415; 74176-TC; 76705-TC; 80048; 80053; 80076; 80156; 82248; 82977; 83690; 83735; 84100; 85025; 85610; 85730; 86140; 93005; 93010; 99285-25; C9803-CS; U0003; U0005

== ENCOUNTER 2021-12-26 14:22 | Emergency (ER) | payer OTHER ==
[2021-12-26 15:42] VITALS: BP 123/64; PULSE 77; RESP 20; TEMP 98.6; BMI 23.4
== END 2021-12-26 21:52 | disposition home or self-care (01) ==
LOC: JER 14:22
DX: U07.1 COVID-19 (principal)
CPT/HCPCS: 71045-TC-FY; 99283-25

== ENCOUNTER 2022-11-10 10:57 | Inpatient (IN) | payer OTHER ==
[2022-11-10 14:56] LABS: BASO % 0.3 % (0-2.0); EOS % 3.7 % (0-4.5); HEMOGLOBIN 9.7 GM/dL (10.7-15.3); LYMPH % 14.4 % (8-40); MCH 23.4 pg (25.7-33.7); MCHC 30.4 g/dl (32.0-36.0); MEAN CELL VOLUME 76.9 fl (80-96); MEAN PLT VOLUME 9.4 fl (7.5-11.1); MONO % 4.9 % (3.8-10.2); NEUT % 76.7 % (42.8-82.8); PLATELET COUNT 380 10^3/uL (134-434); RBC 4.16 M/mm3 (3.60-5.2); WHITE BLOOD COUNT 10.5 K/mm3 (4.0-10.0)
[2022-11-10 15:01] LABS: INR 1.25 (0.83-1.09); PROTHROMBIN TIME (PATIENT) 14.5 SEC (9.7-13.0)
[2022-11-10 15:04] LABS: ACTIVATED PTT 32.1 SECONDS (25.2-36.5)
[2022-11-10 15:13] LABS: POTASSIUM 4.3 mmol/L (3.5-5.1)
[2022-11-10 15:15] LABS: ALBUMIN 3.7 g/dl (3.4-5.0); BLOOD UREA NITROGEN 19.1 mg/dL (7-18); CALCIUM 9.4 mg/dL (8.5-10.1)
[2022-11-10 15:19] LABS: CREATININE 0.6 mg/dL (0.55-1.3)
[2022-11-10 15:20] LABS: BILIRUBIN,TOTAL 0.1 mg/dL (0.2-1); TOT PROT 8.7 g/dl (6.4-8.2)
[2022-11-10] MEDS ORDERED: ACETAMINOPHEN 1000 MG/100 ML BAG IVPB PRN (21:20)
[2022-11-10] MEDS: DEXTROSE 5%-NORMAL SALINE 1,000 ML IV SCH (22:01)
[2022-11-11] MEDS ORDERED: MAGNESIUM HYDROX 2400MG/30ML ORAL SUSPENSION 30 ML CUP PO PRN (07:15)
[2022-11-11] MEDS ORDERED: carBAMazepine 200 MG/10 ML UNIT-DOSE CUP PO SCH (08:00)
[2022-11-11] MEDS ORDERED: MINERAL OIL ENEMA 133 ML ENEMA RC ONE (08:15)
[2022-11-11] MEDS ORDERED: SENNOSIDES/DOCUSATE COMBO (SENNA PLUS) TABLET (UD) PO ONE (08:30)
[2022-11-11] MEDS: PANTOPRAZOLE 20 MG TABLET PO SCH (09:31)
[2022-11-11] MEDS: CHOLECALCIFEROL (VIT D3) 1,000 UNIT (25 MCG) TABLET PO SCH (09:31)
[2022-11-11] MEDS: ENOXAPARIN NA (PORCINE) 40 MG/0.4 ML DISP.SYRIN SQ SCH (09:32)
[2022-11-11] MEDS: FERROUS SO4 325 MG TABLET (FP) PO SCH ×2 (09:32→23:17)
[2022-11-11] MEDS: CALCIUM 500MG/VIT-D 200 UNITS COMBO TABLET (FP) PO SCH ×2 (09:32→23:17)
[2022-11-11] MEDS: NYSTATIN POWDER 100,000 UNITS/GM - 15 GM TOPICAL POWDER TP SCH ×2 (09:33→23:20)
[2022-11-11] MEDS: ASCORBIC ACID 500 MG TABLET (FP) PO SCH (09:33)
[2022-11-11] MEDS: levETIRAcetam 500 MG/5 ML ORAL SOLUTION (UNIT-DOSE CUPS) PO SCH ×3 (09:34→23:17)
[2022-11-11] MEDS: PSYLLIUM 5.85 GM PACKET PO SCH ×2 (09:34→13:58)
[2022-11-11 09:40] LABS: BASO % 0.4 % (0-2.0); HEMATOCRIT 27.7 % (32.4-45.2); HEMOGLOBIN 8.2 GM/dL (10.7-15.3); LYMPH % 11.1 % (8-40); MCH 23.6 pg (25.7-33.7); MCHC 29.5 g/dl (32.0-36.0); MEAN CELL VOLUME 79.9 fl (80-96); MEAN PLT VOLUME 10.8 fl (7.5-11.1); MONO % 3.7 % (3.8-10.2); NEUT % 80.8 % (42.8-82.8); PLATELET COUNT 320 10^3/uL (134-434); RBC 3.46 M/mm3 (3.60-5.2); RDW 16.4 % (11.6-15.6); WHITE BLOOD COUNT 11.9 K/mm3 (4.0-10.0)
[2022-11-11] MEDS: URSODIOL 300 MG CAPSULE PO SCH ×2 (09:48→23:20)
[2022-11-11] MEDS: POLYETHYLENE GLYCOL (HEALTHYLAX) 3350 17 GM PACKET PO SCH ×2 (09:49→23:17)
[2022-11-11 09:50] LABS: POTASSIUM 3.8 mmol/L (3.5-5.1)
[2022-11-11 09:55] LABS: CALCIUM 8.1 mg/dL (8.5-10.1)
[2022-11-11 09:56] LABS: BLOOD UREA NITROGEN 13.9 mg/dL (7-18)
[2022-11-11 09:58] LABS: CREATININE 0.4 mg/dL (0.55-1.3); PHOSPHOROUS 3.2 mg/dL (2.5-4.9)
[2022-11-11 09:59] LABS: BILIRUBIN,TOTAL 0.2 mg/dL (0.2-1); TOT PROT 6.7 g/dl (6.4-8.2)
[2022-11-11 10:02] LABS: ALBUMIN 2.9 g/dl (3.4-5.0)
[2022-11-11] MEDS: CEFTRIAXONE 1 GM in DEXTROSE 5%-WATER - 50 ML IVPB SCH (12:26)
[2022-11-11] MEDS ORDERED: POLYETHYLENE GLYCOL (HEALTHYLAX) 3350 17 GM PACKET PO ONE (15:00)
[2022-11-11 15:34] VITALS: BMI 22.8
[2022-11-11] MEDS: carBAMazepine 100 MG/5 ML UNIT-DOSE CUP PO SCH ×2 (15:50→23:20)
[2022-11-11] MEDS: DEXTROSE 5%-NORMAL SALINE 1,000 ML IV SCH ×2 (18:36→23:16)
[2022-11-11] MEDS: DOCUSATE SODIUM 100 MG CAPSULE (FP) PO SCH (23:17)
[2022-11-11] MEDS: LATANOPROST 0.005% OPHTH SOLN 2.5ML BOTTLE OU SCH (23:24)
[2022-11-12] MEDS: CEFTRIAXONE 1 GM in DEXTROSE 5%-WATER - 50 ML IVPB SCH (09:01)
[2022-11-12] MEDS: ASCORBIC ACID 500 MG TABLET (FP) PO SCH (09:01)
[2022-11-12] MEDS: levETIRAcetam 500 MG/5 ML ORAL SOLUTION (UNIT-DOSE CUPS) PO SCH ×4 (09:01→23:59)
[2022-11-12] MEDS: FERROUS SO4 325 MG TABLET (FP) PO SCH ×3 (09:01→23:58)
[2022-11-12] MEDS: CHOLECALCIFEROL (VIT D3) 1,000 UNIT (25 MCG) TABLET PO SCH (09:01)
[2022-11-12] MEDS: CALCIUM 500MG/VIT-D 200 UNITS COMBO TABLET (FP) PO SCH ×3 (09:01→23:43)
[2022-11-12] MEDS: PANTOPRAZOLE 20 MG TABLET PO SCH (09:01)
[2022-11-12] MEDS: POLYETHYLENE GLYCOL (HEALTHYLAX) 3350 17 GM PACKET PO SCH ×3 (09:02→23:59)
[2022-11-12] MEDS: ENOXAPARIN NA (PORCINE) 40 MG/0.4 ML DISP.SYRIN SQ SCH (09:02)
[2022-11-12] MEDS: NYSTATIN POWDER 100,000 UNITS/GM - 15 GM TOPICAL POWDER TP SCH ×2 (09:03→22:59)
[2022-11-12] MEDS: carBAMazepine 100 MG/5 ML UNIT-DOSE CUP PO SCH ×4 (09:03→23:42)
[2022-11-12] MEDS: URSODIOL 300 MG CAPSULE PO SCH ×3 (09:03→23:57)
[2022-11-12] MEDS: DEXTROSE 5%-NORMAL SALINE 1,000 ML IV SCH (09:17)
[2022-11-12 09:53] LABS: PH,URINE 5.5 (5.0-8.0); URINE APPEARANCE CLOUDY; URINE BILIRUBIN NEGATIVE (NEGATIVE); URINE COLOR YELLOW; URINE GLUCOSE (UA) NEGATIVE (NEGATIVE); URINE KETONE TRACE (NEGATIVE); URINE LEUK ESTERASE NEGATIVE (NEGATIVE); URINE NITRITE NEGATIVE (NEGATIVE); URINE PROTEIN TRACE (NEGATIVE)
[2022-11-12 10:06] LABS: BASO % 0.3 % (0-2.0); EOS % 3.9 % (0-4.5); HEMATOCRIT 27.1 % (32.4-45.2); HEMOGLOBIN 7.9 GM/dL (10.7-15.3); LYMPH % 15.8 % (8-40); MCH 23.6 pg (25.7-33.7); MCHC 29.1 g/dl (32.0-36.0); MEAN CELL VOLUME 81.1 fl (80-96); MEAN PLT VOLUME 10.3 fl (7.5-11.1); MONO % 5.4 % (3.8-10.2); NEUT % 74.6 % (42.8-82.8); PLATELET COUNT 284 10^3/uL (134-434); RBC 3.35 M/mm3 (3.60-5.2); RDW 16.7 % (11.6-15.6); WHITE BLOOD COUNT 8.8 K/mm3 (4.0-10.0)
[2022-11-12 10:11] LABS: POTASSIUM 3.9 mmol/L (3.5-5.1)
[2022-11-12 10:15] LABS: ALBUMIN 2.6 g/dl (3.4-5.0); CALCIUM 8.1 mg/dL (8.5-10.1)
[2022-11-12 10:16] LABS: BLOOD UREA NITROGEN 9.2 mg/dL (7-18)
[2022-11-12 10:19] LABS: CREATININE 0.4 mg/dL (0.55-1.3)
[2022-11-12 10:20] LABS: BILIRUBIN,TOTAL 0.2 mg/dL (0.2-1); TOT PROT 6.1 g/dl (6.4-8.2)
[2022-11-12] MEDS ORDERED: POLYETHYLENE GLYCOL (HEALTHYLAX) 3350 17 GM PACKET PO SCH (14:15)
[2022-11-12] MEDS ORDERED: BISACODYL 5 MG TABLET.DR (FP) PO ONE (14:30)
[2022-11-12] MEDS ORDERED: MAGNESIUM CITRATE 300 ML BOTTLE PO ONE (16:00)
[2022-11-12] MEDS ORDERED: INSULIN (NOVOLOG) ASPART 100 UNITS/ML 10ML VIAL ONE (16:40)
[2022-11-12] MEDS: DOCUSATE SODIUM 100 MG CAPSULE (FP) PO SCH ×2 (22:58→23:59)
[2022-11-12] MEDS: LATANOPROST 0.005% OPHTH SOLN 2.5ML BOTTLE OU SCH (22:59)
[2022-11-13] MEDS: CEFTRIAXONE 1 GM in DEXTROSE 5%-WATER - 50 ML IVPB SCH (10:53)
[2022-11-13] MEDS: URSODIOL 300 MG CAPSULE PO SCH ×2 (11:18→22:40)
[2022-11-13] MEDS: POLYETHYLENE GLYCOL (HEALTHYLAX) 3350 17 GM PACKET PO SCH ×2 (11:19→22:39)
[2022-11-13] MEDS: FERROUS SO4 325 MG TABLET (FP) PO SCH ×2 (11:19→22:40)
[2022-11-13] MEDS: levETIRAcetam 500 MG/5 ML ORAL SOLUTION (UNIT-DOSE CUPS) PO SCH (11:19)
[2022-11-13] MEDS: ENOXAPARIN NA (PORCINE) 40 MG/0.4 ML DISP.SYRIN SQ SCH (11:19)
[2022-11-13] MEDS: carBAMazepine 100 MG/5 ML UNIT-DOSE CUP PO SCH ×3 (11:19→22:47)
[2022-11-13] MEDS: PANTOPRAZOLE 20 MG TABLET PO SCH (11:20)
[2022-11-13] MEDS: ASCORBIC ACID 500 MG TABLET (FP) PO SCH (11:20)
[2022-11-13] MEDS: CALCIUM 500MG/VIT-D 200 UNITS COMBO TABLET (FP) PO SCH ×2 (11:20→22:40)
[2022-11-13] MEDS: CHOLECALCIFEROL (VIT D3) 1,000 UNIT (25 MCG) TABLET PO SCH (11:20)
[2022-11-13] MEDS: NYSTATIN POWDER 100,000 UNITS/GM - 15 GM TOPICAL POWDER TP SCH ×2 (12:11→22:47)
[2022-11-13] MEDS: D5-1/2NS+20 MEQ KCL - 20 MEQ/1,000 ML INFUS.BAG IV SCH (15:39)
[2022-11-13] MEDS: levETIRAcetam 500 MG/5 ML INJECTION VIAL IVPB SCH ×2 (15:40→22:39)
[2022-11-13] MEDS ORDERED: ENOXAPARIN NA (PORCINE) 40 MG/0.4 ML DISP.SYRIN SQ ONE (17:30)
[2022-11-13] MEDS: DOCUSATE SODIUM 100 MG CAPSULE (FP) PO SCH (22:40)
[2022-11-13] MEDS: LATANOPROST 0.005% OPHTH SOLN 2.5ML BOTTLE OU SCH (22:48)
[2022-11-14 09:05] LABS: BASO % 0.3 % (0-2.0); EOS % 4.6 % (0-4.5); HEMATOCRIT 25.6 % (32.4-45.2); HEMOGLOBIN 7.7 GM/dL (10.7-15.3); LYMPH % 12.2 % (8-40); MCH 23.1 pg (25.7-33.7); MCHC 30.2 g/dl (32.0-36.0); MEAN CELL VOLUME 76.4 fl (80-96); NEUT % 77.9 % (42.8-82.8); PLATELET COUNT 311 10^3/uL (134-434); RBC 3.34 M/mm3 (3.60-5.2); RDW 16.3 % (11.6-15.6); WHITE BLOOD COUNT 8.6 K/mm3 (4.0-10.0)
[2022-11-14 09:19] LABS: CHLORIDE 110 mmol/L (98-107); POTASSIUM 3.7 mmol/L (3.5-5.1)
[2022-11-14 09:31] LABS: CALCIUM 8.1 mg/dL (8.5-10.1); GLUCOSE,RANDOM 107 mg/dL (74-106)
[2022-11-14 09:32] LABS: ALBUMIN 2.5 g/dl (3.4-5.0); CO2 29 mmol/L (21-32)
[2022-11-14 09:35] LABS: CREATININE 0.4 mg/dL (0.55-1.3); SGOT/AST 12 U/L (15-37); SGPT/ALT 13 U/L (13-61)
[2022-11-14 09:36] LABS: BILIRUBIN,TOTAL 0.2 mg/dL (0.2-1)
[2022-11-14 09:37] LABS: ALK PHOS 126 U/L (45-117); ANION GAP 6 MMOL/L (8-16); BLOOD UREA NITROGEN 2.8 mg/dL (7-18); SODIUM 145 mmol/L (136-145); TOT PROT 5.8 g/dl (6.4-8.2)
[2022-11-14] MEDS: ENOXAPARIN NA (PORCINE) 40 MG/0.4 ML DISP.SYRIN SQ SCH (10:51)
[2022-11-14] MEDS: POLYETHYLENE GLYCOL (HEALTHYLAX) 3350 17 GM PACKET PO SCH ×4 (10:51→21:44)
[2022-11-14] MEDS: ASCORBIC ACID 500 MG TABLET (FP) PO SCH (10:52)
[2022-11-14] MEDS: carBAMazepine 100 MG/5 ML UNIT-DOSE CUP PO SCH ×3 (10:52→21:44)
[2022-11-14] MEDS: CALCIUM 500MG/VIT-D 200 UNITS COMBO TABLET (FP) PO SCH ×2 (10:52→21:44)
[2022-11-14] MEDS: CHOLECALCIFEROL (VIT D3) 1,000 UNIT (25 MCG) TABLET PO SCH (10:52)
[2022-11-14] MEDS: PANTOPRAZOLE 20 MG TABLET PO SCH (10:52)
[2022-11-14] MEDS: URSODIOL 300 MG CAPSULE PO SCH ×2 (10:52→21:44)
[2022-11-14] MEDS: FERROUS SO4 325 MG TABLET (FP) PO SCH (10:52)
[2022-11-14] MEDS: NYSTATIN POWDER 100,000 UNITS/GM - 15 GM TOPICAL POWDER TP SCH ×2 (11:39→21:44)
[2022-11-14] MEDS: levETIRAcetam 500 MG/5 ML ORAL SOLUTION (UNIT-DOSE CUPS) PO SCH ×2 (12:23→21:44)
[2022-11-14 13:08] LABS: IRON SERUM 17 ug/dL (50-175)
[2022-11-14 13:09] LABS: TOTAL IRON BINDING CAPACITY 259 ug/dL (250-450)
[2022-11-14] MEDS: D5-1/2NS+20 MEQ KCL - 20 MEQ/1,000 ML INFUS.BAG IV SCH (14:53)
[2022-11-14] MEDS ORDERED: IRON SUCROSE INJECTION 200 MG in SODIUM CHLORIDE 90 ML IVPB ONE (16:00)
[2022-11-14] MEDS: LATANOPROST 0.005% OPHTH SOLN 2.5ML BOTTLE OU SCH (21:45)
[2022-11-15] MEDS: CHOLECALCIFEROL (VIT D3) 1,000 UNIT (25 MCG) TABLET PO SCH (10:37)
[2022-11-15] MEDS: PANTOPRAZOLE 20 MG TABLET PO SCH (10:37)
[2022-11-15] MEDS: carBAMazepine 100 MG/5 ML UNIT-DOSE CUP PO SCH ×3 (10:37→22:35)
[2022-11-15] MEDS: URSODIOL 300 MG CAPSULE PO SCH ×2 (10:37→22:33)
[2022-11-15] MEDS: POLYETHYLENE GLYCOL (HEALTHYLAX) 3350 17 GM PACKET PO SCH ×4 (10:37→22:34)
[2022-11-15] MEDS: ASCORBIC ACID 500 MG TABLET (FP) PO SCH (10:38)
[2022-11-15] MEDS: NYSTATIN POWDER 100,000 UNITS/GM - 15 GM TOPICAL POWDER TP SCH ×2 (10:38→22:34)
[2022-11-15] MEDS: ENOXAPARIN NA (PORCINE) 40 MG/0.4 ML DISP.SYRIN SQ SCH (10:38)
[2022-11-15] MEDS: levETIRAcetam 500 MG/5 ML ORAL SOLUTION (UNIT-DOSE CUPS) PO SCH ×2 (10:38→22:34)
[2022-11-15] MEDS: CALCIUM 500MG/VIT-D 200 UNITS COMBO TABLET (FP) PO SCH ×2 (10:38→22:33)
[2022-11-15] MEDS ORDERED: IRON SUCROSE INJECTION 200 MG in SODIUM CHLORIDE 90 ML IVPB ONE (12:00)
[2022-11-15] MEDS: D5-1/2NS+20 MEQ KCL - 20 MEQ/1,000 ML INFUS.BAG IV SCH (17:18)
[2022-11-15] MEDS: AMINO ACIDS/PROTEIN HYDROLYS 30 ML LIQUID.PKT PO SCH (17:18)
[2022-11-15] MEDS: LATANOPROST 0.005% OPHTH SOLN 2.5ML BOTTLE OU SCH (22:35)
[2022-11-16] MEDS: D5-1/2NS+20 MEQ KCL - 20 MEQ/1,000 ML INFUS.BAG IV SCH ×2 (02:59→16:26)
[2022-11-16 08:38] LABS: HEMATOCRIT 24.3 % (32.4-45.2); HEMOGLOBIN 7.4 GM/dL (10.7-15.3); MCH 23.1 pg (25.7-33.7); MCHC 30.3 g/dl (32.0-36.0); MEAN CELL VOLUME 76.2 fl (80-96); MEAN PLT VOLUME 9.5 fl (7.5-11.1); PLATELET COUNT 331 10^3/uL (134-434); RDW 16.7 % (11.6-15.6); WHITE BLOOD COUNT 11.2 K/mm3 (4.0-10.0)
[2022-11-16 08:51] LABS: POTASSIUM 4.5 mmol/L (3.5-5.1)
[2022-11-16 08:55] LABS: ALBUMIN 2.6 g/dl (3.4-5.0); BLOOD UREA NITROGEN 3.1 mg/dL (7-18); CALCIUM 8.3 mg/dL (8.5-10.1)
[2022-11-16 08:58] LABS: CREATININE 0.5 mg/dL (0.55-1.3)
[2022-11-16 09:00] LABS: BILIRUBIN,TOTAL 0.1 mg/dL (0.2-1); TOT PROT 5.8 g/dl (6.4-8.2)
[2022-11-16] MEDS: carBAMazepine 100 MG/5 ML UNIT-DOSE CUP PO SCH ×3 (09:50→23:35)
[2022-11-16] MEDS: URSODIOL 300 MG CAPSULE PO SCH ×2 (09:50→23:34)
[2022-11-16] MEDS: levETIRAcetam 500 MG/5 ML ORAL SOLUTION (UNIT-DOSE CUPS) PO SCH ×2 (09:50→23:34)
[2022-11-16] MEDS: POLYETHYLENE GLYCOL (HEALTHYLAX) 3350 17 GM PACKET PO SCH ×4 (09:50→23:35)
[2022-11-16] MEDS: AMINO ACIDS/PROTEIN HYDROLYS 30 ML LIQUID.PKT PO SCH ×2 (09:50→16:42)
[2022-11-16] MEDS: CHOLECALCIFEROL (VIT D3) 1,000 UNIT (25 MCG) TABLET PO SCH (09:51)
[2022-11-16] MEDS: ASCORBIC ACID 500 MG TABLET (FP) PO SCH (09:51)
[2022-11-16] MEDS: ENOXAPARIN NA (PORCINE) 40 MG/0.4 ML DISP.SYRIN SQ SCH (09:51)
[2022-11-16] MEDS: PANTOPRAZOLE 20 MG TABLET PO SCH (09:51)
[2022-11-16] MEDS: NYSTATIN POWDER 100,000 UNITS/GM - 15 GM TOPICAL POWDER TP SCH ×2 (09:51→23:35)
[2022-11-16] MEDS: CALCIUM 500MG/VIT-D 200 UNITS COMBO TABLET (FP) PO SCH ×2 (09:51→23:35)
[2022-11-16] MEDS ORDERED: IRON SUCROSE INJECTION 200 MG in SODIUM CHLORIDE 90 ML IVPB ONE (12:00)
[2022-11-16] MEDS: LATANOPROST 0.005% OPHTH SOLN 2.5ML BOTTLE OU SCH (23:36)
[2022-11-17] MEDS: carBAMazepine 100 MG/5 ML UNIT-DOSE CUP PO SCH (08:59)
[2022-11-17] MEDS: AMINO ACIDS/PROTEIN HYDROLYS 30 ML LIQUID.PKT PO SCH (08:59)
[2022-11-17] MEDS: ENOXAPARIN NA (PORCINE) 40 MG/0.4 ML DISP.SYRIN SQ SCH (09:00)
[2022-11-17] MEDS: CALCIUM 500MG/VIT-D 200 UNITS COMBO TABLET (FP) PO SCH (09:00)
[2022-11-17] MEDS: URSODIOL 300 MG CAPSULE PO SCH (09:00)
[2022-11-17] MEDS: ASCORBIC ACID 500 MG TABLET (FP) PO SCH (09:00)
[2022-11-17] MEDS: NYSTATIN POWDER 100,000 UNITS/GM - 15 GM TOPICAL POWDER TP SCH (09:01)
[2022-11-17] MEDS: levETIRAcetam 500 MG/5 ML ORAL SOLUTION (UNIT-DOSE CUPS) PO SCH (09:01)
[2022-11-17] MEDS: PANTOPRAZOLE 20 MG TABLET PO SCH (09:01)
[2022-11-17] MEDS: CHOLECALCIFEROL (VIT D3) 1,000 UNIT (25 MCG) TABLET PO SCH (09:01)
[2022-11-17] MEDS: POLYETHYLENE GLYCOL (HEALTHYLAX) 3350 17 GM PACKET PO SCH (09:01)
[2022-11-17 09:03] VITALS: BP 130/56; PULSE 80; RESP 16; TEMP 97.8
== END 2022-11-17 11:50 | DRG 391 ==
LOC: JER 10:57 → JERBED 19:26 → J8W 11-11 00:40 → OBSVTOIN 11-12 13:15 → J7W 11-12 18:22
PROVIDERS: ADMIT Internal Medicine; ATTEND Internal Medicine
DX: K59.09 Other constipation (principal); R53.2 Functional quadriplegia; N04.9 Nephrotic syndrome with unspecified morphologic changes; D64.9 Anemia, unspecified; G40.909 Epilepsy, unspecified, not intractable, without status epilepticus; H40.9 Unspecified glaucoma; E55.9 Vitamin D deficiency, unspecified; K80.50 Calculus of bile duct without cholangitis or cholecystitis without obstruction; R13.10 Dysphagia, unspecified
CPT/HCPCS: 36415; 71045-TC-FY; 74177-TC; 76705-TC; 80053; 81003; 82607; 82728; 82746; 83540; 83550; 83735; 84100; 85025; 85027; 85610; 85730; 86850; 86900; 86901; 87086; 87635; 93005; 93010; 99285-25; G0378; J1756; Q9967

== ENCOUNTER 2023-04-17 06:32 | Emergency (ER) | payer OTHER ==
[2023-04-17 06:49] VITALS: BMI 20.1
[2023-04-17 08:58] LABS: INR 1.29 (0.83-1.09); PROTHROMBIN TIME (PATIENT) 14.9 SEC (9.7-13.0)
[2023-04-17 09:05] LABS: POTASSIUM 4.4 mmol/L (3.5-5.1)
[2023-04-17 09:09] LABS: BLOOD UREA NITROGEN 16.4 mg/dL (7-18); CALCIUM 9.4 mg/dL (8.5-10.1)
[2023-04-17 09:12] LABS: CREATININE 0.6 mg/dL (0.55-1.3)
[2023-04-17 09:13] LABS: BILIRUBIN,TOTAL 0.2 mg/dL (0.2-1); TOT PROT 7.3 g/dl (6.4-8.2)
[2023-04-17 09:15] LABS: BASO % 0.2 % (0-2.0); EOS % 0.4 % (0-4.5); HEMATOCRIT 26.6 % (32.4-45.2); HEMOGLOBIN 8.2 GM/dL (10.7-15.3); LYMPH % 6.9 % (8-40); MCH 22.8 pg (25.7-33.7); MCHC 30.8 g/dl (32.0-36.0); MEAN PLT VOLUME 9.8 fl (7.5-11.1); MONO % 4.1 % (3.8-10.2); NEUT % 88.4 % (42.8-82.8); PLATELET COUNT 433 10^3/uL (134-434); RDW 21.3 % (11.6-15.6); WHITE BLOOD COUNT 18.8 K/mm3 (4.0-10.0)
[2023-04-17 13:14] LABS: EPI CELLS >36 /uL (0-25.1); HYALINE CASTS 11 /uL (0-3.1); URINE APPEARANCE CLOUDY; URINE BACTERIA 751 /uL (0-1359); URINE BILIRUBIN NEGATIVE (NEGATIVE); URINE COLOR DK YELLOW; URINE GLUCOSE (UA) NEGATIVE (NEGATIVE); URINE KETONE TRACE (NEGATIVE); URINE LEUK ESTERASE 1+ (NEGATIVE); URINE NITRITE NEGATIVE (NEGATIVE); URINE PROTEIN TRACE (NEGATIVE); URINE RBC 216 /uL (0-23.9); URINE WBC 192 /uL (0-25.8)
[2023-04-18 01:14] VITALS: BP 128/68; PULSE 68; RESP 18; TEMP 97
== END 2023-04-18 01:20 ==
LOC: JER 06:32
DX: D64.9 Anemia, unspecified (principal)
CPT/HCPCS: 36415; 71045-TC-FY; 80053; 81003; 85025; 85610; 85730; 86850; 86900; 86901; 87040; 87086; 99285-25